=== PATIENT | female | born 1950 | race Caucasian/White ===

== ENCOUNTER 2018-10-21 09:27 | Emergency (ER) | payer MEDICARE, OTHER ==
[~2018-10-21] VITALS: Ht 154.9 cm; Wt 62.7 kg
[2018-10-21] MEDS ORDERED: SODIUM CHLORIDE 0.9% 1000ML 1,000 ML ONE (11:53)
[2018-10-21] MEDS ORDERED: SODIUM CHLORIDE 0.9% 1000 ML BAG IV ONE (12:00)
--- NOTE | 2018-10-21 12:46 | Diagnostic Imaging Report ---
EXAM: CT Abdomen and Pelvis WITH contrast INDICATION: Abdominal Pain COMPARISON: None. TECHNIQUE: Abdomen and pelvis were scanned utilizing a multidetector helical scanner from the lung base to the pubic symphysis after administration of IV contrast. Coronal and sagittal reformations were obtained. Routine protocol was performed. Scan was performed when during portal venous phase. IV CONTRAST: 100 cc of Isovue 370 ORAL CONTRAST: Water COMPLICATIONS: None RADIATION DOSE: Total DLP: 595.2 mGy*cm Dose modulation, iterative reconstruction, and/or weight based adjustment of the mA/kV was utilized to reduce the radiation dose to as low as reasonably achievable. FINDINGS: LINES and TUBES: None. LOWER THORAX: Unremarkable HEPATOBILIARY: No evidence of focal lesion. No biliary ductal dilation. GALLBLADDER: No radio-opaque stones or sludge. No wall thickening. SPLEEN: No splenomegaly. PANCREAS: No focal masses or ductal dilatation. ADRENALS: No adrenal nodules KIDNEYS/URETERS: There is mild right hydronephrosis and hydroureter with distal ureteral extrinsic compression from the pelvic mass. Kidneys enhance symmetrically. No evidence of solid mass or stone. Subcentimeter left lower pole renal hypodensity, likely representing a cyst. GI TRACT: There is dilatation of small bowel loops, measuring up to 3.5 cm. There is extrinsic compression of the ileal loops in the pelvis. There is stool and air within the colon which is nondistended. The sigmoid colon is decompressed and extrinsically narrowed by the pelvic mass. PELVIC ORGANS/BLADDER: There is a large heterogeneous pelvic mass, which is ill-defined, but measuring up to approximately 15.7 x 12.7 x 8.9 cm. The mass is indistinguishable from the uterus or adnexa. The mass is centered within the midline and left pelvis. Along the left aspect of the mass, there is a large fluid component with multiple foci of punctate air. The fluid component measures up to 11.3 x 6.5 cm. There is small volume surrounding free fluid. Extrinsic compression of the bladder which is displaced anteriorly and partially decompressed. LYMPH NODES: Retroperitoneal lymphadenopathy, for example a left periaortic lymph node, measuring up to 1.9 x 1.7 cm (series 2, image 40) and an aortocaval lymph node, measuring up to 1.3 x 0.9 cm (image 36). Left common iliac artery lymph node, measuring up to 0.8 cm short axis on image 46. Right pericardiac lymph nodes are prominent, measuring up to 0.8 cm. Prominent mesenteric lymph nodes, measuring up to 0.8 cm on image 35. VESSELS: There are scattered atherosclerotic calcifications in the aorta and branch vessels. PERITONEUM / RETROPERITONEUM: No free air or fluid. BONES AND SOFT TISSUES: No acute osseous abnormality. No suspicious lytic or blastic lesions. Grade 1 anterolisthesis of L5 on S1. CONCLUSION: Large heterogeneous pelvic mass, consistent with malignancy with retroperitoneal and mesenteric lymphadenopathy, suspicious for metastasis. Small volume ascites. Differential includes endometrial and ovarian malignancies. Large fluid component within the mass suspicious for necrosis. The foci of air within the mass could represent fistula to the adjacent sigmoid colon. Prominent right pericardial lymph nodes, which may be metastatic or reactive. Recommend gynecologic/oncologic consultation. Dedicated PET/CT for staging is suggested. Partial small bowel obstruction and mild right hydronephrosis secondary to extrinsic mass effect from the pelvic mass. Signed by: Dr. Nellie Javier MD on 10/21/2018 12:43 PM
--- NOTE | 2018-10-21 12:55 | NUR ---
PT UPDATED OF CT RESULTS BY
[2018-10-21] MEDS ORDERED: METRONIDAZOLE 500MG/NS 100ML 100 ML IV STA (12:56)
[2018-10-21] MEDS ORDERED: LEVOFLOXACIN 750MG/D5W 150ML 150 ML IV STA (12:56)
--- NOTE | 2018-10-21 13:08 | NUR ---
PT/MD REQUESTING TRANSFER [facility]. [facility] CALLED [phone]
[2018-10-21] MEDS ORDERED: METRONIDAZOLE 500MG/NS 100ML 100 ML IV ONE (13:54)
[2018-10-21] MEDS ORDERED: LEVOFLOXACIN 750MG/D5W 150ML 150 ML IV ONE (13:54)
--- NOTE | 2018-10-21 15:07 | NUR ---
CALLED [facility] FOR TRANSPORT
--- NOTE | 2018-10-21 16:30 | NUR ---
REPORT TO EMS CORRESPONDENCE REVIEW CLERK, NOTIFIED TITLE I COORDINATOR OF TRANSFER, PAPERWORK DONE.
--- NOTE | 2018-10-21 16:40 | NUR ---
REPORT ATTEMPTED THRU TRANSFER [place] [phone]
--- NOTE | 2018-10-21 17:01 | NUR ---
REPORT TO OREN CANDELARIO AT [facility]
[2018-10-21] MEDS ORDERED: SODIUM CHLORIDE 0.9% 50ML 50 ML ONE (18:57)
[2018-10-21] MEDS ORDERED: IOPAMIDOL 370 MG/ML 200 ML INFUS..BTL INJ ONE (18:57)
== END 2018-10-21 16:36 | disposition short-term general hospital (02) ==
LOC: FSED 09:27
DX: R19.00 Intra-abdominal and pelvic swelling, mass and lump, unspecified site (principal); C56.9 Malignant neoplasm of unspecified ovary; K56.600 Partial intestinal obstruction, unspecified as to cause
CPT/HCPCS: 74177; 80048; 80076; 81003; 82553; 84484; 99284; J7030; Q9967

== ENCOUNTER 2019-08-01 00:23 | Emergency (ER) | payer MEDICARE, OTHER ==
[~2019-08-01] VITALS: Ht 154.9 cm; Wt 62.6 kg
--- OUTSIDE RECORDS SUMMARY | 2019-08-01 00:27 | XMS REPORT ---
Author Author [facility] Address Unknown Phone Unavailable Care Team Providers Care Drum Cleaner Name Role Phone LEEANNE VICTORIA Unavailable Unavailable JONO ASTORGA Unavailable Unavailable Arline GEORGE Unavailable Unavailable JOSTINMARY JOESTINE Unavailable Unavailable ARRON MILLER Unavailable Unavailable MELA LLAMAS Unavailable Unavailable Problems This patient has no known problems. Allergies, Adverse Reactions, Alerts This patient has no known allergies or adverse reactions. Medications This patient has no known medications. Results Test Description Test Time Test Comments Text Results Atomic Results Result Comments MAGNESIUM 2019-07-30 07:06:00 MAGNESIUM (BEAKER) (test oceo=007) 1.8 mg/dL 1.6-2.6 Tree Tapping Laborer ID - ISAIAS MBASIC METABOLIC [id number] 07:06:00* Test Item Value Reference Range Comments SODIUM (BEAKER) (test vftl=529) 132 meq/L 136-145 POTASSIUM (BEAKER) (test cebc=354) 4.5 meq/L 3.5-5.1 CHLORIDE (BEAKER) (test uzmc=781) 100 meq/L 98-107 CO2 (BEAKER) (test uuxf=211) 25 meq/L 22-29 BLOOD UREA NITROGEN (BEAKER) (test effi=870) 11 mg/dL 7-21 CREATININE (BEAKER) (test xnfh=027) 0.66 mg/dL 0.57-1.25 GLUCOSE RANDOM (BEAKER) (test bfxd=990) 137 mg/dL 70-105 CALCIUM (BEAKER) (test nkub=770) 8.4 mg/dL 8.4-10.2 EGFR (BEAKER) (test tbfz=7974) 89 mL/min/1.73 sq m ESTIMATED GFR IS NOT ACCURATE CREATININE CLEARANCE IN PREDICTING GLOMERULAR FILTRATION RATE. ESTIMATED GFR IS NOT APPLICABLE FOR DIALYSIS PATIENTS. Tree Tapping Laborer ID - ISAIAS [facility] W/PLT COUNT & AUTO [id number] 07:01:00* Test Item Value Reference Range Comments WHITE BLOOD CELL COUNT (BEAKER) (test biah=285) 7.4 K/ L 3.5-10.5 RED BLOOD CELL COUNT (BEAKER) (test klsl=591) 2.77 M/ L 3.93-5.22 HEMOGLOBIN (BEAKER) (test uzuo=604) 7.9 GM/DL 11.2-15.7 HEMATOCRIT (BEAKER) (test pvse=519) 25.8 % 34.1-44.9 MEAN CORPUSCULAR VOLUME (BEAKER) (test yjnn=186) 93.1 fL 79.4-94.8 MEAN CORPUSCULAR HEMOGLOBIN (BEAKER) (test jzel=370) 28.5 pg 25.6-32.2 MEAN CORPUSCULAR HEMOGLOBIN CONC (BEAKER) (test dxor=014) 30.6 GM/DL 32.2-35.5 RED CELL DISTRIBUTION WIDTH (BEAKER) (test vubc=791) 16.9 % 11.7-14.4 PLATELET COUNT (BEAKER) (test gvkw=654) 237 K/CU MM 150-450 MEAN PLATELET VOLUME (BEAKER) (test wbzg=603) 8.9 fL 9.4-12.3 NUCLEATED RED BLOOD CELLS (BEAKER) (test pmke=252) 0 /100 WBC 0-0 NEUTROPHILS RELATIVE PERCENT (BEAKER) (test sigm=152) 93 % LYMPHOCYTES RELATIVE PERCENT (BEAKER) (test xwsh=251) 3 % MONOCYTES RELATIVE PERCENT (BEAKER) (test erxb=469) 4 % EOSINOPHILS RELATIVE PERCENT (BEAKER) (test pcbo=904) 0 % BASOPHILS RELATIVE PERCENT (BEAKER) (test deoa=680) 0 % NEUTROPHILS ABSOLUTE COUNT (BEAKER) (test kgge=664) 6.91 K/ L 1.56-6.13 LYMPHOCYTES ABSOLUTE COUNT (BEAKER) (test nccg=172) 0.19 K/ L 1.18-3.74 MONOCYTES ABSOLUTE COUNT (BEAKER) (test lpmt=687) 0.29 K/ L 0.24-0.36 EOSINOPHILS ABSOLUTE COUNT (BEAKER) (test xosi=440) 0.00 K/ L 0.04-0.36 BASOPHILS ABSOLUTE COUNT (BEAKER) (test fcnv=332) 0.01 K/ L 0.01-0.08 IMMATURE GRANULOCYTES-RELATIVE PERCENT (BEAKER) (test fxco=3387) 0 % 0-1 CBC W/PLT COUNT & AUTO [id number] 06:53:00* Test Item Value Reference Range Comments WHITE BLOOD CELL COUNT (BEAKER) (test fxwj=164) 9.5 K/ L 3.5-10.5 RED BLOOD CELL COUNT (BEAKER) (test viwd=737) 2.85 M/ L 3.93-5.22 HEMOGLOBIN (BEAKER) (test hfgg=608) 8.3 GM/DL 11.2-15.7 HEMATOCRIT (BEAKER) (test sqgw=333) 26.2 % 34.1-44.9 MEAN CORPUSCULAR VOLUME (BEAKER) (test qjis=178) 91.9 fL 79.4-94.8 MEAN CORPUSCULAR HEMOGLOBIN (BEAKER) (test ores=576) 29.1 pg 25.6-32.2 MEAN CORPUSCULAR HEMOGLOBIN CONC (BEAKER) (test ljaz=069) 31.7 GM/DL 32.2-35.5 RED CELL DISTRIBUTION WIDTH (BEAKER) (test kpwv=464) 17.3 % 11.7-14.4 PLATELET COUNT (BEAKER) (test iedt=893) 258 K/CU MM 150-450 MEAN PLATELET VOLUME (BEAKER) (test aigo=182) 8.9 fL 9.4-12.3 NUCLEATED RED BLOOD CELLS (BEAKER) (test afdo=914) 0 /100 WBC 0-0 NEUTROPHILS RELATIVE PERCENT (BEAKER) (test hvgg=850) 88 % LYMPHOCYTES RELATIVE PERCENT (BEAKER) (test ewdb=343) 3 % MONOCYTES RELATIVE PERCENT (BEAKER) (test enzv=860) 9 % EOSINOPHILS RELATIVE PERCENT (BEAKER) (test cwiz=744) 0 % BASOPHILS RELATIVE PERCENT (BEAKER) (test ehtg=782) 0 % NEUTROPHILS ABSOLUTE COUNT (BEAKER) (test pdpi=676) 8.31 K/ L 1.56-6.13 LYMPHOCYTES ABSOLUTE COUNT (BEAKER) (test wyzt=153) 0.29 K/ L 1.18-3.74 MONOCYTES ABSOLUTE COUNT (BEAKER) (test zdud=734) 0.81 K/ L 0.24-0.36 EOSINOPHILS ABSOLUTE COUNT (BEAKER) (test vkya=833) 0.03 K/ L 0.04-0.36 BASOPHILS ABSOLUTE COUNT (BEAKER) (test tsfu=584) 0.01 K/ L 0.01-0.08 IMMATURE GRANULOCYTES-RELATIVE PERCENT (BEAKER) (test ywyo=0110) 0 % 0-1 [id number] 06:46:00* Test Item Value Reference Range Comments MAGNESIUM (BEAKER) (test ipuj=645) 1.7 mg/dL 1.6-2.6 Tree Tapping Laborer ID - ISAIAS MBASIC METABOLIC [id number] 06:46:00* Test Item Value Reference Range Comments SODIUM (BEAKER) (test zwep=000) 131 meq/L 136-145 POTASSIUM (BEAKER) (test gkoz=898) 4.2 meq/L 3.5-5.1 CHLORIDE (BEAKER) (test gflc=454) 101 meq/L 98-107 CO2 (BEAKER) (test qkhr=478) 24 meq/L 22-29 BLOOD UREA NITROGEN (BEAKER) (test mhvx=012) 12 mg/dL 7-21 CREATININE (BEAKER) (test hqmz=888) 0.66 mg/dL 0.57-1.25 GLUCOSE RANDOM (BEAKER) (test ytmz=824) 97 mg/dL 70-105 CALCIUM (BEAKER) (test ysrf=061) 8.2 mg/dL 8.4-10.2 EGFR (BEAKER) (test pgmx=0371) 89 mL/min/1.73 sq m ESTIMATED GFR IS NOT ACCURATE CREATININE CLEARANCE IN PREDICTING GLOMERULAR FILTRATION RATE. ESTIMATED GFR IS NOT APPLICABLE FOR DIALYSIS PATIENTS. Tree Tapping Laborer ID - ISAIAS MOCCULT BLOOD, [id number] 22:01:00* Test Item Value Reference Range Comments FECAL OCCULT BLOOD (BEAKER) (test ppwi=130) Positive Negative HEMOGLOBIN AND [id number] 15:48:00* Test Item Value Reference Range Comments HEMOGLOBIN (BEAKER) (test gzmt=623) 8.2 GM/DL 11.2-15.7 HEMATOCRIT (BEAKER) (test reuy=631) 25.6 % 34.1-44.9 Tree Tapping Laborer ID - [id number] W/PLT COUNT & AUTO [id number] 06:48:00* Test Item Value Reference Range Comments WHITE BLOOD CELL COUNT (BEAKER) (test auym=441) 8.1 K/ L 3.5-10.5 RED BLOOD CELL COUNT (BEAKER) (test vofz=047) 2.39 M/ L 3.93-5.22 HEMOGLOBIN (BEAKER) (test riwf=682) 6.9 GM/DL 11.2-15.7 HEMATOCRIT (BEAKER) (test udyq=375) 22.6 % 34.1-44.9 MEAN CORPUSCULAR VOLUME (BEAKER) (test gcpu=815) 94.6 fL 79.4-94.8 MEAN CORPUSCULAR HEMOGLOBIN (BEAKER) (test lqvl=179) 28.9 pg 25.6-32.2 MEAN CORPUSCULAR HEMOGLOBIN CONC (BEAKER) (test itrh=401) 30.5 GM/DL 32.2-35.5 RED CELL DISTRIBUTION WIDTH (BEAKER) (test jnue=819) 16.7 % 11.7-14.4 PLATELET COUNT (BEAKER) (test amyw=303) 278 K/CU MM 150-450 MEAN PLATELET VOLUME (BEAKER) (test ocxy=900) 9.0 fL 9.4-12.3 NUCLEATED RED BLOOD CELLS (BEAKER) (test xrpl=141) 0 /100 WBC 0-0 NEUTROPHILS RELATIVE PERCENT (BEAKER) (test vigg=115) 87 % LYMPHOCYTES RELATIVE PERCENT (BEAKER) (test wbcy=974) 4 % MONOCYTES RELATIVE PERCENT (BEAKER) (test mkyv=288) 8 % EOSINOPHILS RELATIVE PERCENT (BEAKER) (test nnza=500) 0 % BASOPHILS RELATIVE PERCENT (BEAKER) (test rjad=541) 0 % NEUTROPHILS ABSOLUTE COUNT (BEAKER) (test kjqx=643) 7.02 K/ L 1.56-6.13 LYMPHOCYTES ABSOLUTE COUNT (BEAKER) (test pdid=181) 0.36 K/ L 1.18-3.74 MONOCYTES ABSOLUTE COUNT (BEAKER) (test dczm=261) 0.68 K/ L 0.24-0.36 EOSINOPHILS ABSOLUTE COUNT (BEAKER) (test oowh=073) 0.00 K/ L 0.04-0.36 BASOPHILS ABSOLUTE COUNT (BEAKER) (test qaro=039) 0.02 K/ L 0.01-0.08 IMMATURE GRANULOCYTES-RELATIVE PERCENT (BEAKER) (test nidy=1973) 0 % 0-1 [id number] 06:32:00* Test Item Value Reference Range Comments MAGNESIUM (BEAKER) (test csqw=789) 1.8 mg/dL 1.6-2.6 Tree Tapping Laborer ID - DIPIKA WBASIC METABOLIC [id number] 06:32:00* Test Item Value Reference Range Comments SODIUM (BEAKER) (test jphh=720) 132 meq/L 136-145 POTASSIUM (BEAKER) (test nwex=854) 4.2 meq/L 3.5-5.1 CHLORIDE (BEAKER) (test jzbo=677) 101 meq/L 98-107 CO2 (BEAKER) (test mikq=771) 24 meq/L 22-29 BLOOD UREA NITROGEN (BEAKER) (test cvbe=061) 15 mg/dL 7-21 CREATININE (BEAKER) (test pphy=103) 0.71 mg/dL 0.57-1.25 GLUCOSE RANDOM (BEAKER) (test uhpk=090) 107 mg/dL 70-105 CALCIUM (BEAKER) (test zwdx=222) 8.3 mg/dL 8.4-10.2 EGFR (BEAKER) (test ninl=3345) 82 mL/min/1.73 sq m ESTIMATED GFR IS NOT ACCURATE CREATININE CLEARANCE IN PREDICTING GLOMERULAR FILTRATION RATE. ESTIMATED GFR IS NOT APPLICABLE FOR DIALYSIS PATIENTS. Tree Tapping Laborer ID - DIPIKA WVITAMIN B12 AND [id number] 18:59:00* Test Item Value Reference Range Comments VITAMIN B12 (BEAKER) (test hrai=407) > pg/mL 213-816 FOLATE (BEAKER) (test asrt=209) 12.5 ng/mL >=7.0 Tree Tapping Laborer ID - [id number] 18:58:00* Test Item Value Reference Range Comments FERRITIN (BEAKER) (test hmsk=211) 304 ng/mL 5-275 Tree Tapping Laborer ID - ROSIANGTSH/FREE T4 IF [id number] 18:58:00* Test Item Value Reference Range Comments THYROID STIMULATING HORMONE (BEAKER) (test wnre=827) 1.26 uIU/mL 0.35-4.94 Tree Tapping Laborer ID - [id number] 18:24:00* Test Item Value Reference Range Comments PHOSPHORUS (BEAKER) (test kgul=497) 4.2 mg/dL 2.3-4.7 Tree Tapping Laborer ID - [id number] 18:24:00* Test Item Value Reference Range Comments MAGNESIUM (BEAKER) (test uoja=995) 1.8 mg/dL 1.6-2.6 Tree Tapping Laborer ID - WAQASGBASIC METABOLIC [id number] 18:24:00* Test Item Value Reference Range Comments SODIUM (BEAKER) (test qzyw=570) 130 meq/L 136-145 POTASSIUM (BEAKER) (test pmeo=613) 4.6 meq/L 3.5-5.1 CHLORIDE (BEAKER) (test thsr=563) 98 meq/L 98-107 CO2 (BEAKER) (test zykn=721) 23 meq/L 22-29 BLOOD UREA NITROGEN (BEAKER) (test jcsg=599) 20 mg/dL 7-21 CREATININE (BEAKER) (test odwu=695) 0.83 mg/dL 0.57-1.25 GLUCOSE RANDOM (BEAKER) (test pltk=025) 103 mg/dL 70-105 CALCIUM (BEAKER) (test drip=747) 9.0 mg/dL 8.4-10.2 EGFR (BEAKER) (test xqeu=9700) 68 mL/min/1.73 sq m ESTIMATED GFR IS NOT ACCURATE CREATININE CLEARANCE IN PREDICTING GLOMERULAR FILTRATION RATE. ESTIMATED GFR IS NOT APPLICABLE FOR DIALYSIS PATIENTS. Tree Tapping Laborer ID - YVONEPATIC FUNCTION [id number] 18:24:00* Test Item Value Reference Range Comments TOTAL PROTEIN (BEAKER) (test wmaq=339) 6.6 gm/dL 6.0-8.3 ALBUMIN (BEAKER) (test hkjz=2520) 3.1 g/dL 3.5-5.0 BILIRUBIN TOTAL (BEAKER) (test izgs=916) 0.2 mg/dL 0.2-1.2 BILIRUBIN DIRECT (BEAKER) (test zvub=535) 0.2 mg/dL 0.1-0.5 ALKALINE PHOSPHATASE (BEAKER) (test vjul=046) 89 U/L 40-150 AST (SGOT) (BEAKER) (test zzho=596) 11 U/L 5-34 ALT (SGPT) (BEAKER) (test yjmu=339) 9 U/L 6-55 Tree Tapping Laborer ID - OUSMANE, TIBC, % SAT. (WITHOUT FERRITIN)2019-07-27 18:22:00* Test Item Value Reference Range Comments IRON (BEAKER) (test eafg=822) 15.0 ug/dL 40.0-160.0 TOTAL IRON BINDING CAPACITY (BEAKER) (test vugj=947) 194 ug/dL 250-450 IRON % SATURATION (2) (BEAKER) (test ytsa=3739) 8 % 20-55 Tree Tapping Laborer ID - ROSIANGPT/[id number] 18:20:00* Test Item Value Reference Range Comments PROTIME (BEAKER) (test ojkd=315) 13.8 seconds 11.9-14.2 INR (BEAKER) (test byfr=770) 1.1 <=5.9 PARTIAL THROMBOPLASTIN TIME (BEAKER) (test jiig=839) 45.5 seconds 22.5-36.0 Effective 10/20/2018: PT Reference Range ChangeNew: 11.9-14.2 Previous: 11.7-14. 7RECOMMENDED COUMADIN/WARFARIN INR THERAPY RANGESSTANDARD DOSE: 2.0-3.0 Include s: PROPHYLAXIS for venous thrombosis, systemic embolization; TREATMENT for venou s thrombosis and/or pulmonary embolus.HIGH RISK: Target INR is 2.5-3.5 for patie nts wiht mechanical heart valves.CBC W/PLT COUNT & AUTO [id number] 18:09:00* Test Item Value Reference Range Comments WHITE BLOOD CELL COUNT (BEAKER) (test ruxe=896) 9.6 K/ L 3.5-10.5 RED BLOOD CELL COUNT (BEAKER) (test yzdk=132) 2.64 M/ L 3.93-5.22 HEMOGLOBIN (BEAKER) (test bgrb=839) 7.8 GM/DL 11.2-15.7 HEMATOCRIT (BEAKER) (test inpu=056) 24.8 % 34.1-44.9 MEAN CORPUSCULAR VOLUME (BEAKER) (test ofwa=314) 93.9 fL 79.4-94.8 MEAN CORPUSCULAR HEMOGLOBIN (BEAKER) (test qevp=666) 29.5 pg 25.6-32.2 MEAN CORPUSCULAR HEMOGLOBIN CONC (BEAKER) (test mabt=007) 31.5 GM/DL 32.2-35.5 RED CELL DISTRIBUTION WIDTH (BEAKER) (test yefb=672) 16.5 % 11.7-14.4 PLATELET COUNT (BEAKER) (test oafg=932) 328 K/CU MM 150-450 MEAN PLATELET VOLUME (BEAKER) (test hudq=091) 9.1 fL 9.4-12.3 NUCLEATED RED BLOOD CELLS (BEAKER) (test bqkl=873) 0 /100 WBC 0-0 NEUTROPHILS RELATIVE PERCENT (BEAKER) (test mydj=065) 89 % LYMPHOCYTES RELATIVE PERCENT (BEAKER) (test kzlx=371) 3 % MONOCYTES RELATIVE PERCENT (BEAKER) (test stzf=935) 7 % EOSINOPHILS RELATIVE PERCENT (BEAKER) (test enhf=291) 0 % BASOPHILS RELATIVE PERCENT (BEAKER) (test uaxt=019) 0 % NEUTROPHILS ABSOLUTE COUNT (BEAKER) (test ksjm=750) 8.50 K/ L 1.56-6.13 LYMPHOCYTES ABSOLUTE COUNT (BEAKER) (test qpfh=092) 0.32 K/ L 1.18-3.74 MONOCYTES ABSOLUTE COUNT (BEAKER) (test nksk=116) 0.71 K/ L 0.24-0.36 EOSINOPHILS ABSOLUTE COUNT (BEAKER) (test ysfq=753) 0.00 K/ L 0.04-0.36 BASOPHILS ABSOLUTE COUNT (BEAKER) (test xppm=570) 0.01 K/ L 0.01-0.08 IMMATURE GRANULOCYTES-RELATIVE PERCENT (BEAKER) (test xhkt=5586) 0 % 0-1 RETICULOCYTE [id number] 18:08:00* Test Item Value Reference Range Comments RETICULOCYTE COUNT PCT (BEAKER) (test qiiu=995) 1.5 % 0.5-1.7 Tree Tapping Laborer ID - [id number], [id number] 17:04:00FINAL REPORT CT of the Chest, abdomen and pelvis dated 07/17/2019 Clinical information: uterine cancer restaging Comment: Axial images of the chest, abdomen, and pelvis were obtained from thoracic inlet to the pubic symphysis with GI and intravenous contrast. This exam was performed according to our departmental dose-optimization program, which includes automated exposure control, adjustment of the mA and/or kV according to patient size and/or use of interactive reconstruction technique. Heart is normal in size. Small amount of fluid is seen in the superior cardiac recess. Great vessels are unremarkable. No adenopathy in the mediastinum or perihilar region. Trachea and mainstem bronchi are patent. Subsegmental atelectasis is seen in the lingula and right lung b ase. The rest of the lungs are clear. No nodular, mass lesion or airspace disea se is noted. No interstitial disease or bronchiectasis is present. No pleural e ffusion or pleural based mass is seen. Several mass lesions are seen under the a nterior left hemidiaphragm measuring up to 4.3 x 4.8 cm. A 3.7 x 3.7 cm mass is seen in the left lateroconal fascia. A 1.8 x 1.9 cm mass/adenopathy is seen in t he root of the mesentery. Liver and spleen are normal in size. No focal lesion i s seen in the liver or the spleen. Gallbladder is distended. No gallstone or kim iary dilatation is noted. Pancreas and adrenals are unremarkable. Both kidneys a re normal in size and functioning with bilateral excretion. Bilateral ureter st ents are seen. No hydronephrosis, hydroureter, or urolithiasis is noted. No opac ified small bowel is normal in caliber. There is nonspecific wall thickening in the proximal and distal sigmoid colon. A large complex mass is seen in the mid p nuha measuring at least 7.5 x 8.4 x 9.8 cm. The pelvic mass is seen extended to the right pelvic sidewall. Adenopathy is seen in the left common, external and internal lymphatic chain measuring up to 2.4 x 3 cm in size. A 3.5 x 4.2 cm carola opathy is seen in the right common iliac lymphatic chain. Impression: 1. Large m ass in the mid pelvis and adenopathy in the bilateral iliac lymphatic chain as d escribed as above.2. 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 Wall thickening involving the proximal and distal sigmoid colon may be se condary to extrinsic mass/adenopathy.4. No metastatic disease in the chest. Sign ed: Joshua Mena MDReport Verified Date/Time: 07/17/2019 17:04:24 Reading Locati on: [facility] B1 C013X Ortho Consult Reading Room , CHEST, WITH [id number] 17:04:[address] of the Chest, abdomen and pelvis dated Clinical information: uterine cancer restaging Comment: Axial images o f the chest, abdomen, and pelvis were obtained from thoracic inlet to the pubic symphysis with GI and intravenous contrast. This exam was performed accordin g to our departmental dose-optimization program, which includes automated exposu re control, adjustment of the mA and/or kV according to patient size and/or use of interactive reconstruction technique. Heart is normal in size. Small amount o f fluid is seen in the superior cardiac recess. Great vessels are unremarkable. No adenopathy in the mediastinum or perihilar region. Trachea and mainstem bronc hi are patent. Subsegmental atelectasis is seen in the lingula and right lung b ase. The rest of the lungs are clear. No nodular, mass lesion or airspace disea se is noted. No interstitial disease or bronchiectasis is present. No pleural e ffusion or pleural based mass is seen. Several mass lesions are seen under the a nterior left hemidiaphragm measuring up to 4.3 x 4.8 cm. A 3.7 x 3.7 cm mass is seen in the left lateroconal fascia. A 1.8 x 1.9 cm mass/adenopathy is seen in t he root of the mesentery. Liver and spleen are normal in size. No focal lesion i s seen in the liver or the spleen. Gallbladder is distended. No gallstone or kim iary dilatation is noted. Pancreas and adrenals are unremarkable. Both kidneys a re normal in size and functioning with bilateral excretion. Bilateral ureter st ents are seen. No hydronephrosis, hydroureter, or urolithiasis is noted. No opac ified small bowel is normal in caliber. There is nonspecific wall thickening in the proximal and distal sigmoid colon. A large complex mass is seen in the mid p nuha measuring at least 7.5 x 8.4 x 9.8 cm. The pelvic mass is seen extended to the right pelvic sidewall. Adenopathy is seen in the left common, external and internal lymphatic chain measuring up to 2.4 x 3 cm in size. A 3.5 x 4.2 cm carola opathy is seen in the right common iliac lymphatic chain. Impression: 1. Large m ass in the mid pelvis and adenopathy in the bilateral iliac lymphatic chain as d escribed as above.2. 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 Wall thickening involving the proximal and distal sigmoid colon may be se condary to extrinsic mass/adenopathy.4. No metastatic disease in the chest. Sign ed: Joshua Mena MDReport Verified Date/Time: 07/17/2019 17:04:24 Reading Locati on: [facility] B1 C013X Ortho Consult Reading Room C METABOLIC [id number] 06:55:00* Test Item Value Reference Range Comments SODIUM (BEAKER) (test cphn=472) 133 meq/L 136-145 POTASSIUM (BEAKER) (test fjww=478) 5.1 meq/L 3.5-5.1 CHLORIDE (BEAKER) (test hssr=136) 101 meq/L 98-107 CO2 (BEAKER) (test mrzc=007) 26 meq/L 22-29 BLOOD UREA NITROGEN (BEAKER) (test nrvx=166) 11 mg/dL 7-21 CREATININE (BEAKER) (test ugxc=987) 0.78 mg/dL 0.57-1.25 GLUCOSE RANDOM (BEAKER) (test xcas=324) 100 mg/dL 70-105 CALCIUM (BEAKER) (test dxmn=165) 8.7 mg/dL 8.4-10.2 EGFR (BEAKER) (test lnec=5781) 73 mL/min/1.73 sq m ESTIMATED GFR IS NOT ACCURATE CREATININE CLEARANCE IN PREDICTING GLOMERULAR FILTRATION RATE. ESTIMATED GFR IS NOT APPLICABLE FOR DIALYSIS PATIENTS. Tree Tapping Laborer ID - DBCBC (HEMOGRAM ONLY)2019-07-17 06:07:00* Test Item Value Reference Range Comments WHITE BLOOD CELL COUNT (BEAKER) (test khqw=664) 12.0 K/ L 3.5-10.5 RED BLOOD CELL COUNT (BEAKER) (test pejq=078) 2.53 M/ L 3.93-5.22 HEMOGLOBIN (BEAKER) (test wkiu=765) 7.6 GM/DL 11.2-15.7 HEMATOCRIT (BEAKER) (test woab=643) 24.1 % 34.1-44.9 MEAN CORPUSCULAR VOLUME (BEAKER) (test icbx=429) 95.3 fL 79.4-94.8 MEAN CORPUSCULAR HEMOGLOBIN (BEAKER) (test kytu=371) 30.0 pg 25.6-32.2 MEAN CORPUSCULAR HEMOGLOBIN CONC (BEAKER) (test wnxq=883) 31.5 GM/DL 32.2-35.5 RED CELL DISTRIBUTION WIDTH (BEAKER) (test hipe=174) 18.6 % 11.7-14.4 PLATELET COUNT (BEAKER) (test oyzd=129) 263 K/CU MM 150-450 MEAN PLATELET VOLUME (BEAKER) (test kbav=769) 8.8 fL 9.4-12.3 NUCLEATED RED BLOOD CELLS (BEAKER) (test wxnh=378) 0 /100 WBC 0-0 HEMOGLOBIN AND [id number] 18:07:00* Test Item Value Reference Range Comments HEMOGLOBIN (BEAKER) (test lyab=804) 7.8 GM/DL 11.2-15.7 HEMATOCRIT (BEAKER) (test zgpo=302) 25.8 % 34.1-44.9 Tree Tapping Laborer ID - [id number] (HEMOGRAM ONLY)2019-07-16 07:15:00* Test Item Value Reference Range Comments WHITE BLOOD CELL COUNT (BEAKER) (test wwyr=317) 10.6 K/ L 3.5-10.5 RED BLOOD CELL COUNT (BEAKER) (test ubjt=089) 2.55 M/ L 3.93-5.22 HEMOGLOBIN (BEAKER) (test zlnc=009) 7.5 GM/DL 11.2-15.7 HEMATOCRIT (BEAKER) (test ztjn=936) 24.7 % 34.1-44.9 MEAN CORPUSCULAR VOLUME (BEAKER) (test pvej=948) 96.9 fL 79.4-94.8 Discordant result compared to previous result; clinical correlation required. MEAN CORPUSCULAR HEMOGLOBIN (BEAKER) (test slxn=307) 29.4 pg 25.6-32.2 MEAN CORPUSCULAR HEMOGLOBIN CONC (BEAKER) (test wxzs=818) 30.4 GM/DL 32.2-35.5 RED CELL DISTRIBUTION WIDTH (BEAKER) (test mqun=722) 19.3 % 11.7-14.4 PLATELET COUNT (BEAKER) (test oaih=862) 298 K/CU MM 150-450 MEAN PLATELET VOLUME (BEAKER) (test zvdx=966) 8.9 fL 9.4-12.3 NUCLEATED RED BLOOD CELLS (BEAKER) (test dqin=810) 0 /100 WBC 0-0 BASIC METABOLIC [id number] 06:35:00* Test Item Value Reference Range Comments SODIUM (BEAKER) (test quie=274) 136 meq/L 136-145 POTASSIUM (BEAKER) (test fdvc=187) 4.2 meq/L 3.5-5.1 Specimen slightly hemolyzed CHLORIDE (BEAKER) (test vwff=651) 108 meq/L 98-107 CO2 (BEAKER) (test qklb=537) 21 meq/L 22-29 BLOOD UREA NITROGEN (BEAKER) (test ugmq=492) 16 mg/dL 7-21 CREATININE (BEAKER) (test kyay=748) 0.79 mg/dL 0.57-1.25 Specimen slightly hemolyzed GLUCOSE RANDOM (BEAKER) (test zxsu=763) 92 mg/dL 70-105 CALCIUM (BEAKER) (test llws=320) 8.5 mg/dL 8.4-10.2 EGFR (BEAKER) (test rrkr=2583) 72 mL/min/1.73 sq m ESTIMATED GFR IS NOT ACCURATE CREATININE CLEARANCE IN PREDICTING GLOMERULAR FILTRATION RATE. ESTIMATED GFR IS NOT APPLICABLE FOR DIALYSIS PATIENTS. [employer] ID - ISAIAS MPERIPHERAL BLOOD SMEAR - HOLD [id number] 21:42:00* Test Item Value Reference Range Comments PERIPHERAL SMEAR SAVE (BEAKER) (test yiyd=0527) saved RETICULOCYTE [id number] 21:36:00* Test Item Value Reference Range Comments RETICULOCYTE COUNT PCT (BEAKER) (test kkgl=573) 6.1 % 0.5-1.7 [employer] ID - [id number] METABOLIC [id number] 18:41:00* Test Item Value Reference Range Comments SODIUM (BEAKER) (test nxjf=754) 138 meq/L 136-145 POTASSIUM (BEAKER) (test nnmf=096) 4.7 meq/L 3.5-5.1 CHLORIDE (BEAKER) (test qebc=387) 105 meq/L 98-107 CO2 (BEAKER) (test beoa=906) 22 meq/L 22-29 BLOOD UREA NITROGEN (BEAKER) (test tkjf=100) 19 mg/dL 7-21 CREATININE (BEAKER) (test sdua=981) 0.97 mg/dL 0.57-1.25 GLUCOSE RANDOM (BEAKER) (test wqhf=526) 106 mg/dL 70-105 CALCIUM (BEAKER) (test haww=614) 8.7 mg/dL 8.4-10.2 EGFR (BEAKER) (test pjwg=7074) INSUFFICIENT CLINICAL DATA TO CALCULATE ESTIMATED GFR. [employer] ID - BSHEPATIC FUNCTION [id number] 18:36:00* Test Item Value Reference Range Comments TOTAL PROTEIN (BEAKER) (test rzar=300) 6.3 gm/dL 6.0-8.3 ALBUMIN (BEAKER) (test bdow=3767) 3.1 g/dL 3.5-5.0 BILIRUBIN TOTAL (BEAKER) (test mllq=476) 0.1 mg/dL 0.2-1.2 BILIRUBIN DIRECT (BEAKER) (test firi=516) 0.1 mg/dL 0.1-0.5 ALKALINE PHOSPHATASE (BEAKER) (test aueb=865) 60 U/L 40-150 AST (SGOT) (BEAKER) (test qqdk=887) 13 U/L 5-34 ALT (SGPT) (BEAKER) (test yfla=119) 8 U/L 6-55 [employer] ID - BSCBC W/PLT COUNT & AUTO [id number] 17:40:00* Test Item Value Reference Range Comments WHITE BLOOD CELL COUNT (BEAKER) (test lrbp=860) 10.3 K/ L 3.5-10.5 RED BLOOD CELL COUNT (BEAKER) (test llga=325) 1.54 M/ L 3.93-5.22 HEMOGLOBIN (BEAKER) (test dqdj=642) 4.7 GM/DL 11.2-15.7 HEMATOCRIT (BEAKER) (test zjmd=127) 15.9 % 34.1-44.9 MEAN CORPUSCULAR VOLUME (BEAKER) (test wdko=644) 103.2 fL 79.4-94.8 MEAN CORPUSCULAR HEMOGLOBIN (BEAKER) (test hqlp=266) 30.5 pg 25.6-32.2 MEAN CORPUSCULAR HEMOGLOBIN CONC (BEAKER) (test rqel=806) 29.6 GM/DL 32.2-35.5 RED CELL DISTRIBUTION WIDTH (BEAKER) (test aqcb=371) 18.5 % 11.7-14.4 PLATELET COUNT (BEAKER) (test wlvi=035) 413 K/CU MM 150-450 MEAN PLATELET VOLUME (BEAKER) (test xrut=229) 9.2 fL 9.4-12.3 NUCLEATED RED BLOOD CELLS (BEAKER) (test jgvy=939) 0 /100 WBC 0-0 NEUTROPHILS RELATIVE PERCENT (BEAKER) (test dnlx=018) 85 % LYMPHOCYTES RELATIVE PERCENT (BEAKER) (test vpvl=500) 6 % MONOCYTES RELATIVE PERCENT (BEAKER) (test hycp=533) 6 % EOSINOPHILS RELATIVE PERCENT (BEAKER) (test pchh=297) 2 % BASOPHILS RELATIVE PERCENT (BEAKER) (test mwjs=523) 0 % NEUTROPHILS ABSOLUTE COUNT (BEAKER) (test zcfq=857) 8.67 K/ L 1.56-6.13 LYMPHOCYTES ABSOLUTE COUNT (BEAKER) (test wldj=275) 0.62 K/ L 1.18-3.74 MONOCYTES ABSOLUTE COUNT (BEAKER) (test yxjh=686) 0.66 K/ L 0.24-0.36 EOSINOPHILS ABSOLUTE COUNT (BEAKER) (test auxk=867) 0.18 K/ L 0.04-0.36 BASOPHILS ABSOLUTE COUNT (BEAKER) (test vext=563) 0.02 K/ L 0.01-0.08 IMMATURE GRANULOCYTES-RELATIVE PERCENT (BEAKER) (test gopj=5717) 1 % 0-1 PT/[id number] 17:28:00* Test Item Value Reference Range Comments PROTIME (BEAKER) (test mfwk=478) 13.5 seconds 11.9-14.2 INR (BEAKER) (test heyx=748) 1.1 <=5.9 PARTIAL THROMBOPLASTIN TIME (BEAKER) (test bycf=910) 33.6 seconds 22.5-36.0 Effective 10/20/2018: PT Reference Range ChangeNew: 11.9-14.2 Previous: 11.7-14. 7RECOMMENDED COUMADIN/WARFARIN INR THERAPY RANGESSTANDARD DOSE: 2.0-3.0 Include s: PROPHYLAXIS for venous thrombosis, systemic embolization; TREATMENT for venou s thrombosis and/or pulmonary embolus.HIGH RISK: Target INR is 2.5-3.5 for patie nts wiht mechanical heart valves.BASIC METABOLIC [id number] 06:56:00* Test Item Value Reference Range Comments SODIUM (BEAKER) (test kpwj=797) 136 meq/L 136-145 POTASSIUM (BEAKER) (test sttz=449) 4.2 meq/L 3.5-5.1 CHLORIDE (BEAKER) (test hirt=975) 107 meq/L 98-107 CO2 (BEAKER) (test zivu=680) 20 meq/L 22-29 BLOOD UREA NITROGEN (BEAKER) (test humn=281) 17 mg/dL 7-21 CREATININE (BEAKER) (test llqn=642) 0.78 mg/dL 0.57-1.25 GLUCOSE RANDOM (BEAKER) (test nttr=477) 94 mg/dL 70-105 CALCIUM (BEAKER) (test atlr=330) 9.4 mg/dL 8.4-10.2 EGFR (BEAKER) (test glmc=7733) 73 mL/min/1.73 sq m ESTIMATED GFR IS NOT ACCURATE CREATININE CLEARANCE IN PREDICTING GLOMERULAR FILTRATION RATE. ESTIMATED GFR IS NOT APPLICABLE FOR DIALYSIS PATIENTS. Tree Tapping Laborer ID - ISAIAS [facility] W/PLT COUNT & AUTO [id number] 06:32:00* Test Item Value Reference Range Comments WHITE BLOOD CELL COUNT (BEAKER) (test nmrp=683) 21.3 K/ L 3.5-10.5 RED BLOOD CELL COUNT (BEAKER) (test ypwp=386) 2.96 M/ L 3.93-5.22 HEMOGLOBIN (BEAKER) (test wqak=834) 8.6 GM/DL 11.2-15.7 HEMATOCRIT (BEAKER) (test mhse=255) 27.6 % 34.1-44.9 MEAN CORPUSCULAR VOLUME (BEAKER) (test cscs=858) 93.2 fL 79.4-94.8 MEAN CORPUSCULAR HEMOGLOBIN (BEAKER) (test ptih=073) 29.1 pg 25.6-32.2 MEAN CORPUSCULAR HEMOGLOBIN CONC (BEAKER) (test clsx=687) 31.2 GM/DL 32.2-35.5 RED CELL DISTRIBUTION WIDTH (BEAKER) (test vjju=172) 20.2 % 11.7-14.4 PLATELET COUNT (BEAKER) (test open=395) 430 K/CU MM 150-450 MEAN PLATELET VOLUME (BEAKER) (test jofg=093) 8.4 fL 9.4-12.3 NUCLEATED RED BLOOD CELLS (BEAKER) (test ufcg=051) 0 /100 WBC 0-0 NEUTROPHILS RELATIVE PERCENT (BEAKER) (test cxpm=785) 85 % LYMPHOCYTES RELATIVE PERCENT (BEAKER) (test vuau=613) 6 % MONOCYTES RELATIVE PERCENT (BEAKER) (test ghbp=339) 6 % EOSINOPHILS RELATIVE PERCENT (BEAKER) (test rahn=905) 2 % BASOPHILS RELATIVE PERCENT (BEAKER) (test ilis=363) 0 % NEUTROPHILS ABSOLUTE COUNT (BEAKER) (test klpg=632) 18.16 K/ L 1.56-6.13 LYMPHOCYTES ABSOLUTE COUNT (BEAKER) (test byof=843) 1.21 K/ L 1.18-3.74 MONOCYTES ABSOLUTE COUNT (BEAKER) (test lqgu=993) 1.30 K/ L 0.24-0.36 EOSINOPHILS ABSOLUTE COUNT (BEAKER) (test mskw=322) 0.44 K/ L 0.04-0.36 BASOPHILS ABSOLUTE COUNT (BEAKER) (test taeg=472) 0.05 K/ L 0.01-0.08 IMMATURE GRANULOCYTES-RELATIVE PERCENT (BEAKER) (test rubh=7795) 1 % 0-1 HEMOGLOBIN AND [id number] 18:22:00* Test Item Value Reference Range Comments HEMOGLOBIN (BEAKER) (test smyk=877) 8.4 GM/DL 11.2-15.7 HEMATOCRIT (BEAKER) (test ezoq=352) 26.0 % 34.1-44.9 Tree Tapping Laborer ID - [id number] 07:02:00* Test Item Value Reference Range Comments MAGNESIUM (BEAKER) (test jyrx=980) 1.8 mg/dL 1.6-2.6 Tree Tapping Laborer ID - ISAIAS MBASIC METABOLIC [id number] 07:02:00* Test Item Value Reference Range Comments SODIUM (BEAKER) (test ghox=332) 134 meq/L 136-145 POTASSIUM (BEAKER) (test zgzj=029) 4.0 meq/L 3.5-5.1 CHLORIDE (BEAKER) (test lkvy=627) 107 meq/L 98-107 CO2 (BEAKER) (test izdx=533) 20 meq/L 22-29 BLOOD UREA NITROGEN (BEAKER) (test lwrr=935) 19 mg/dL 7-21 CREATININE (BEAKER) (test qxas=718) 0.81 mg/dL 0.57-1.25 GLUCOSE RANDOM (BEAKER) (test efxp=170) 124 mg/dL 70-105 CALCIUM (BEAKER) (test ktow=568) 8.6 mg/dL 8.4-10.2 EGFR (BEAKER) (test tkbq=1593) 70 mL/min/1.73 sq m ESTIMATED GFR IS NOT ACCURATE CREATININE CLEARANCE IN PREDICTING GLOMERULAR FILTRATION RATE. ESTIMATED GFR IS NOT APPLICABLE FOR DIALYSIS PATIENTS. Tree Tapping Laborer ID - ISAIAS EPATIC FUNCTION [id number] 07:02:00* Test Item Value Reference Range Comments TOTAL PROTEIN (BEAKER) (test hshx=403) 5.8 gm/dL 6.0-8.3 ALBUMIN (BEAKER) (test ldwf=3183) 2.9 g/dL 3.5-5.0 BILIRUBIN TOTAL (BEAKER) (test rkme=484) 0.3 mg/dL 0.2-1.2 BILIRUBIN DIRECT (BEAKER) (test zkzm=074) 0.2 mg/dL 0.1-0.5 ALKALINE PHOSPHATASE (BEAKER) (test kkbz=258) 55 U/L 40-150 AST (SGOT) (BEAKER) (test xbls=380) 12 U/L 5-34 ALT (SGPT) (BEAKER) (test fked=954) 7 U/L 6-55 Tree Tapping Laborer ID - ISAIAS [facility] W/PLT COUNT & AUTO [id number] 06:55:00* Test Item Value Reference Range Comments WHITE BLOOD CELL COUNT (BEAKER) (test ljtu=390) 22.1 K/ L 3.5-10.5 RED BLOOD CELL COUNT (BEAKER) (test fmco=700) 2.62 M/ L 3.93-5.22 HEMOGLOBIN (BEAKER) (test qpgg=929) 7.9 GM/DL 11.2-15.7 HEMATOCRIT (BEAKER) (test qdji=068) 23.7 % 34.1-44.9 MEAN CORPUSCULAR VOLUME (BEAKER) (test zqog=481) 90.5 fL 79.4-94.8 Discordant result compares with previous; clinical correlation requires. MEAN CORPUSCULAR HEMOGLOBIN (BEAKER) (test dowl=181) 30.2 pg 25.6-32.2 MEAN CORPUSCULAR HEMOGLOBIN CONC (BEAKER) (test phhs=116) 33.3 GM/DL 32.2-35.5 RED CELL DISTRIBUTION WIDTH (BEAKER) (test imis=569) 20.3 % 11.7-14.4 PLATELET COUNT (BEAKER) (test aqnl=356) 404 K/CU MM 150-450 MEAN PLATELET VOLUME (BEAKER) (test nmkg=074) 8.5 fL 9.4-12.3 NUCLEATED RED BLOOD CELLS (BEAKER) (test zgzs=673) 0 /100 WBC 0-0 NEUTROPHILS RELATIVE PERCENT (BEAKER) (test mnuk=025) 86 % LYMPHOCYTES RELATIVE PERCENT (BEAKER) (test powq=808) 6 % MONOCYTES RELATIVE PERCENT (BEAKER) (test kieu=095) 6 % EOSINOPHILS RELATIVE PERCENT (BEAKER) (test nygq=411) 2 % BASOPHILS RELATIVE PERCENT (BEAKER) (test tqpj=980) 0 % NEUTROPHILS ABSOLUTE COUNT (BEAKER) (test rmwt=426) 18.98 K/ L 1.56-6.13 LYMPHOCYTES ABSOLUTE COUNT (BEAKER) (test psyk=929) 1.25 K/ L 1.18-3.74 MONOCYTES ABSOLUTE COUNT (BEAKER) (test mknl=044) 1.29 K/ L 0.24-0.36 EOSINOPHILS ABSOLUTE COUNT (BEAKER) (test kajg=356) 0.39 K/ L 0.04-0.36 BASOPHILS ABSOLUTE COUNT (BEAKER) (test lhbh=807) 0.05 K/ L 0.01-0.08 IMMATURE GRANULOCYTES-RELATIVE PERCENT (BEAKER) (test oqvr=2354) 1 % 0-1 PROTHROMBIN TIME/[id number] 06:21:00* Test Item Value Reference Range Comments PROTIME (BEAKER) (test zhud=732) 13.4 seconds 11.9-14.2 INR (BEAKER) (test wrim=406) 1.1 <=5.9 Effective 10/20/2018: PT Reference Range ChangeNew: 11.9-14.2 Previous: 11.7-14. 7RECOMMENDED COUMADIN/WARFARIN INR THERAPY RANGESSTANDARD DOSE: 2.0-3.0 Include s: PROPHYLAXIS for venous thrombosis, systemic embolization; TREATMENT for venou s thrombosis and/or pulmonary embolus.HIGH RISK: Target INR is 2.5-3.5 for patie nts wiht mechanical heart valves.RAD, CHEST, 1 VIEW, NON [id number] 02:24:00 Reason for exam:->r/o pnaShould this be performed at the bedside?->YesFINAL REPORT Chest one view. Clinical history: Abdominal pain. Comparison: Chest radiograph 11/05/2018. Technique: A single frontal view of the chest was obtained. Findings:There is a right IJ Port-A-Cath with tip in the SVC.The heart is normal in size. The aorta is tortuous. There is no focal p ulmonary consolidation, pleural effusion or pneumothorax. There is no pulmonary edema. The bony thorax is unremarkable. Impression: No focal pulmonary consolida tion. Signed: Carly Gates MDReport Verified Date/Time: 06/22/2019 02:24: 10 ALYSIS W/ REFLEX URINE [id number] 02:02:00* Test Item Value Reference Range Comments COLOR (BEAKER) (test wmzo=983) Light Yellow CLARITY (BEAKER) (test lodq=499) Hazy SPECIFIC GRAVITY UA (BEAKER) (test vbrw=858) 1.039 1.001-1.035 PH UA (BEAKER) (test wnlh=703) 5.5 5.0-8.0 PROTEIN UA (BEAKER) (test aaoe=337) 20 mg/dL Negative GLUCOSE UA (BEAKER) (test pwvb=555) Negative Negative KETONES UA (BEAKER) (test pqoa=867) Negative Negative BILIRUBIN UA (BEAKER) (test nuil=089) Negative Negative BLOOD UA (BEAKER) (test xrnm=827) Moderate Negative NITRITE UA (BEAKER) (test pmyp=991) Negative Negative LEUKOCYTE ESTERASE UA (BEAKER) (test skqt=723) Large Negative UROBILINOGEN UA (BEAKER) (test jphi=817) 0.2 mg/dL 0.2-1.0 RBC UA (BEAKER) (test dnlm=772) 27 /HPF WBC UA (BEAKER) (test bxvy=097) 92 /HPF SQUAMOUS EPITHELIAL (BEAKER) (test oxhc=198) < /HPF SOURCE(BEAKER) (test bmeq=7507) Tree Tapping Laborer ID - [auto]Tree Tapping Laborer ID - LIZETH [id number] 21:50:00FINAL REPORT TECHNIQUE: CT of the abdomen and pelvis WITH intravenous contrast and oral contrast. Dose modulation, iterative reconstruction, and/or weight-based adjustment of the mA/kV was utilized to reduce the radiation dose to as low as reasonably achievable. INDICATION: Abdominal pain, acute, nonlocalized. COMPARISON: 05/12/2019 CT. FINDINGS: LOWER THORAX: Unremarkable. HEPATOBILIARY: No focal hepatic lesions. Gallbladder is unremarkable. No biliary ductal dilatation.SPLEEN: No splenomegaly.PANCREAS: No focal masses or ductal dilatation. ADRENALS: No adrenal nodules.KIDNEYS/URETERS: Bilateral nephrostomy tubes in place with interval improved hydronephrosis. No exophytic masses or obstructing nephrolithiasis.PELVIC ORGANS/BLADDER: Uterus is surgically absent. Heterogeneously enhancing mass in the uterine cavity surrounding the vaginal cu ff with measurements of approximately 8.3 x 7.4 cm, previously 3.1 x 4.5 cm (axi al image 60). No bladder wall thickening. PERITONEUM/RETROPERITONEUM: Several sc attered intra-abdominal masses including a cystic mass at the anterior margin of the right psoas muscle with axial measurements of 4.3 x 3.8 cm, previously 1.1 x 1.7 cm (axial image 43), lesion in the left pericolonic gutter that is 3.5 x 3 .7 cm previously 1.7 x 1.8 cm (axial image 30), a round central mesenteric lesio n 0.9 x 2.0 cm, previously 1.3 x 1.7 cm (axial image 37), a lesion encasing the distal right ureter that is 5.5 x 3.6 cm, previously 2.5 x 4.3 cm (image 55), le svetlana of the anterior margin of the left psoas muscle that is 3.1 x 2.3 cm, previ ously 1.3 x 1.6 cm (image 44), medial to the left common iliac artery bifurcatio n is 2.7 x 2.4 cm, previously 2.3 x 2.3 cm (image 47), the left lower quadrant l esion that is 2.3 x 3.0 cm, previously 1.8 x 1.8 cm (image 46), and a lesion ant erior to the left hepatic lobe that is 4.1 x 3 cm, previously 3.3 x 2.1 cm (imag e 21).LYMPH NODES: Several abnormally enlarged mediastinal lymph nodes similar t o prior. For reference, mesenteric node that is 1.5 x 1.4 cm on image 38.VESSELS : Unremarkable. GI TRACT: No bowel wall thickening. Appendix not identified. No secondary signs of appendicitis. There are a few loops of mildly prominent small bowel adjacent to the masses in the left lower quadrant up to 2.9 cm diameter. BONES AND SOFT TISSUES: No acute osseous abnormality. Grade 1 stepwise anterolis thesis from L3 to L5 is degenerative disc disease with vacuum disc phenomenon. IMPRESSION: 1. Multiple intra-abdominal and intrapelvic masses consistent with n eoplasm have increased in size compared to prior consistent with progression of disease. There are a few loops of mildly distended small bowel in the left lower adjacent to the masses without jes obstruction. 2. Bilateral nephrostomy tub es are in place with interval improved hydronephrosis. 3. Hysterectomy. Signed: Joshua Chávez MDReport Verified Date/Time: 06/21/2019 21:50:47 Electronic ally signed by: JOSHUA CHÁVEZ MD on 06/21/2019 09:50 PM HEPATIC FUNCTION PANEL 2019-06-21 20:10:00* Test Item Value Reference Range Comments TOTAL PROTEIN (BEAKER) (test tdra=425) 6.4 gm/dL 6.0-8.3 ALBUMIN (BEAKER) (test yqsm=2106) 3.3 g/dL 3.5-5.0 BILIRUBIN TOTAL (BEAKER) (test wcya=075) 0.1 mg/dL 0.2-1.2 BILIRUBIN DIRECT (BEAKER) (test rclv=754) < mg/dL 0.1-0.5 ALKALINE PHOSPHATASE (BEAKER) (test yafp=477) 59 U/L 40-150 AST (SGOT) (BEAKER) (test yffk=452) 14 U/L 5-34 ALT (SGPT) (BEAKER) (test qeca=092) 7 U/L 6-55 Tree Tapping Laborer ID - [id number] 20:09:00* Test Item Value Reference Range Comments LIPASE (BEAKER) (test xmxl=854) 24 U/L 8-78 Tree Tapping Laborer ID - [id number] 20:09:00* Test Item Value Reference Range Comments AMYLASE (BEAKER) (test mrsn=763) 45 U/L 25-125 Tree Tapping Laborer ID - BSBASIC METABOLIC [id number] 20:09:00* Test Item Value Reference Range Comments SODIUM (BEAKER) (test mbtw=071) 139 meq/L 136-145 POTASSIUM (BEAKER) (test glar=459) 4.8 meq/L 3.5-5.1 CHLORIDE (BEAKER) (test usfp=734) 109 meq/L 98-107 CO2 (BEAKER) (test uqhd=639) 22 meq/L 22-29 BLOOD UREA NITROGEN (BEAKER) (test sime=199) 24 mg/dL 7-21 CREATININE (BEAKER) (test leqq=186) 0.92 mg/dL 0.57-1.25 GLUCOSE RANDOM (BEAKER) (test havp=406) 101 mg/dL 70-105 CALCIUM (BEAKER) (test rqqm=412) 9.3 mg/dL 8.4-10.2 EGFR (BEAKER) (test qinh=2062) 61 mL/min/1.73 sq m ESTIMATED GFR IS NOT ACCURATE CREATININE CLEARANCE IN PREDICTING GLOMERULAR FILTRATION RATE. ESTIMATED GFR IS NOT APPLICABLE FOR DIALYSIS PATIENTS. Tree Tapping Laborer ID - BSCBC W/PLT COUNT & AUTO [id number] 19:58:00* Test Item Value Reference Range Comments WHITE BLOOD CELL COUNT (BEAKER) (test pbuj=451) 22.1 K/ L 3.5-10.5 RED BLOOD CELL COUNT (BEAKER) (test oxzk=259) 1.85 M/ L 3.93-5.22 HEMOGLOBIN (BEAKER) (test qirs=292) 5.7 GM/DL 11.2-15.7 HEMATOCRIT (BEAKER) (test plaz=094) 18.9 % 34.1-44.9 MEAN CORPUSCULAR VOLUME (BEAKER) (test enkl=767) 102.2 fL 79.4-94.8 MEAN CORPUSCULAR HEMOGLOBIN (BEAKER) (test lxqe=994) 30.8 pg 25.6-32.2 MEAN CORPUSCULAR HEMOGLOBIN CONC (BEAKER) (test gloj=576) 30.2 GM/DL 32.2-35.5 RED CELL DISTRIBUTION WIDTH (BEAKER) (test sjrn=419) 18.3 % 11.7-14.4 PLATELET COUNT (BEAKER) (test vlwa=935) 485 K/CU MM 150-450 MEAN PLATELET VOLUME (BEAKER) (test fpjl=755) 8.3 fL 9.4-12.3 NUCLEATED RED BLOOD CELLS (BEAKER) (test eyin=241) 0 /100 WBC 0-0 NEUTROPHILS RELATIVE PERCENT (BEAKER) (test zkpx=297) 86 % LYMPHOCYTES RELATIVE PERCENT (BEAKER) (test ftgb=060) 6 % MONOCYTES RELATIVE PERCENT (BEAKER) (test ixkr=472) 6 % EOSINOPHILS RELATIVE PERCENT (BEAKER) (test ewyc=096) 1 % BASOPHILS RELATIVE PERCENT (BEAKER) (test ystp=544) 0 % NEUTROPHILS ABSOLUTE COUNT (BEAKER) (test aiqx=113) 19.05 K/ L 1.56-6.13 LYMPHOCYTES ABSOLUTE COUNT (BEAKER) (test smpy=208) 1.29 K/ L 1.18-3.74 MONOCYTES ABSOLUTE COUNT (BEAKER) (test sgbc=986) 1.29 K/ L 0.24-0.36 EOSINOPHILS ABSOLUTE COUNT (BEAKER) (test liic=425) 0.31 K/ L 0.04-0.36 BASOPHILS ABSOLUTE COUNT (BEAKER) (test tnxs=382) 0.02 K/ L 0.01-0.08 IMMATURE GRANULOCYTES-RELATIVE PERCENT (BEAKER) (test bqii=4229) 1 % 0-1 PT/[id number] 19:56:00* Test Item Value Reference Range Comments PROTIME (BEAKER) (test eqzi=930) 13.6 seconds 11.9-14.2 INR (BEAKER) (test ltik=780) 1.1 <=5.9 PARTIAL THROMBOPLASTIN TIME (BEAKER) (test qpmh=687) 32.7 seconds 22.5-36.0 Effective 10/20/2018: PT Reference Range ChangeNew: 11.9-14.2 Previous: 11.7-14. 7RECOMMENDED COUMADIN/WARFARIN INR THERAPY RANGESSTANDARD DOSE: 2.0-3.0 Include s: PROPHYLAXIS for venous thrombosis, systemic embolization; TREATMENT for venou s thrombosis and/or pulmonary embolus.HIGH RISK: Target INR is 2.5-3.5 for patie nts wiht mechanical heart valves.TISSUE [id number] 08:15:00Surgical Pathology Report Case: [id number] Authorizing Provider: Damon Frankel, Collected: 05/27/2019 1259 Ordering Location: [facility] Radiology Main Received: 05/27/2019 9869 Patholog ist: Vel Murray MD Specimen: Pelvis, Right, right pelvic mass biopsy Addendum is issued to report additional results. The original diagnosis remains the same.[employer] Result:PD-L1 IHC 22C3 FDA(KEYTR UDA): CPS >/=1 (PD-L1 EXPRESSION)COMBINED POSITIVE SCORE: 10Please see the attached file for detailed information . Addendum electronically signed by Vel Murray MD on 06/03/2019 at 8:15 AMRIGHT PELVIC MASS, BIOPSY: - INVASIVE CARCINOMA WITH SQUAMOUS DIFFERENTIATION (SEE COMMENT) Signing Pathologist Direct Phone Line: [phone] signed by Vel Murray MD on 05/30/2019 at 6:07 PMSections show invasive carcinoma with abundant necrosis and abundant eosinophilic to clear cytoplasm. By immunohistochemistry, the tumor cells are positive for p40 and p16 (strong and diffuse, cytoplasmic and nuclear). PAX8 and GATA3 are also patchy positive, while WT1 is predominantly negative. The immunoprofile is compatible with patient's previously diagnosed "invasive squamous cell carcinoma" ([id number]). Clinical/radiological correlation is recommended. 57862, 17914, 22192 x 4GYN MALIGNANCYRIGHT PELVIC MASSReceived in formalin labeled "right pelvic" are multiple ace-pink tissue fragments measuring in aggregate 1.5 x 0.6 x 0.1 cm. The specimen is submitted entirely in cassette A1. TH/plPerformed.The interpretation of this case included the use of immunohistochemistry or special stains.Please see the immunohistochemistry results in the COMMENT section. Control Slides Examined: In-house known positive controls were evaluated along with the test tissue. These control slides run alongside of the patients sample show appropriate staining. Internal positive and negative controls when available are evaluated Immunohistochemistry technical testing was performed at [facility] where it was developed and its performance charac teristics were determined. It has not been cleared or approved by the U.S. Food and Drug Administration. The FDA has determined that such clearance or approval is not necessary. The test is used for clinical purposes. It should not be regar ded as investigational or for research. This laboratory is certified under the [facility] Improvement Amendments of 1988 (CLIA-88) as qualified to perf orm high complexity clinical laboratory testing.CT, BIOPSY/ASPIRATION/INJECTION 2019-05-27 20:19:00Reason for Exam:->R19.00, D49.9FINAL REPORT PROCEDURE: CT-guided biopsy of a right pelvic mass. Dose modulation, iterative reconstruction, and/or weight-based adjustment of the mA/kV was utilized to reduce the radiation dose to as low as reasonably achievable. INDICATION: Pelvic mass. COMPARISON: CT from 05/12/2019. SEDATION: Intravenous moderate sedation was administered by radiology nursing and monitored under the direction of the undersigned radiologist. The patient's vital signs were monitored throughout the procedure and recorded in the patient's medical record by radiology nursing. Total intraservice time of sedation was 25 minutes. M EDICATIONS: 0.5 mg Versed, 25 mcg fentanyl DESCRIPTION: After obtaining informed written consent, the patient was brought to the procedure room and placed in th e prone position. Preliminary CT scan revealed the pelvic mass which had increa se in size. The right perirectal mass was targeted for biopsy. The overlying ski n was prepped and draped in the usual, sterile fashion and local 2% lidocaine an esthesia was administered. Under CT guidance, a 17-gauge introducer needle was p laced into the right perirectal mass, and five 18-gauge biopsies were obtained. Follow-up exam revealed no evidence for hematoma. There were no immediate compli cations. IMPRESSION: Successful core biopsy of a right perirectal mass. Signed: Jamil Griffin MDReport Verified Date/Time: 05/27/2019 20:19:54 Reading Location: [place] [id number] Body Reading Room [id number] 09:14:00* Test Item Value Reference Range Comments PARTIAL THROMBOPLASTIN TIME (BEAKER) (test ijpi=903) 31.5 seconds 22.5-36.0 PROTHROMBIN TIME/[id number] 09:13:00* Test Item Value Reference Range Comments PROTIME (BEAKER) (test pxmr=536) 13.4 seconds 11.9-14.2 INR (BEAKER) (test ubhx=873) 1.1 <=5.9 Effective 10/20/2018: PT Reference Range ChangeNew: 11.9-14.2 Previous: 11.7-14. 7RECOMMENDED COUMADIN/WARFARIN INR THERAPY RANGESSTANDARD DOSE: 2.0-3.0 Include s: PROPHYLAXIS for venous thrombosis, systemic embolization; TREATMENT for venou s thrombosis and/or pulmonary embolus.HIGH RISK: Target INR is 2.5-3.5 for patie nts wiht mechanical heart valves.HEPARIN ASSAY - LOW MOLECULAR [id number] 09:07:00* Test Item Value Reference Range Comments LOVENOX-ANTI 10A (BEAKER) (test pcip=8882) 0.13 u/ml 0.60-2.00 Anti-Factor 10-A Level (Heparin Assay for Low Molecular Weight Heparin)Monitorin g Guidelines: Blood samples should be obtained 4 hours post subcutaneous injecti on (time of Peak level) Therapeutic Peak Levels: 0.6-1.0 units/mL twice daily e noxaparin 1.0-2.0 units/mL once daily enoxaparinRef: CHEST 2012;141:t84b-u85l CBC W/PLT COUNT & AUTO [id number] 09:02:00* Test Item Value Reference Range Comments WHITE BLOOD CELL COUNT (BEAKER) (test wfkz=021) 11.2 K/ L 3.5-10.5 RED BLOOD CELL COUNT (BEAKER) (test koym=538) 2.85 M/ L 3.93-5.22 HEMOGLOBIN (BEAKER) (test bide=524) 8.9 GM/DL 11.2-15.7 HEMATOCRIT (BEAKER) (test fbhp=587) 28.2 % 34.1-44.9 MEAN CORPUSCULAR VOLUME (BEAKER) (test aylt=337) 98.9 fL 79.4-94.8 MEAN CORPUSCULAR HEMOGLOBIN (BEAKER) (test ekdv=478) 31.2 pg 25.6-32.2 MEAN CORPUSCULAR HEMOGLOBIN CONC (BEAKER) (test yveh=503) 31.6 GM/DL 32.2-35.5 RED CELL DISTRIBUTION WIDTH (BEAKER) (test fyjy=248) 17.1 % 11.7-14.4 PLATELET COUNT (BEAKER) (test zpha=921) 397 K/CU MM 150-450 MEAN PLATELET VOLUME (BEAKER) (test jjlv=031) 8.0 fL 9.4-12.3 NUCLEATED RED BLOOD CELLS (BEAKER) (test bbfi=657) 0 /100 WBC 0-0 NEUTROPHILS RELATIVE PERCENT (BEAKER) (test kjoz=431) 84 % LYMPHOCYTES RELATIVE PERCENT (BEAKER) (test tmjf=174) 6 % MONOCYTES RELATIVE PERCENT (BEAKER) (test pdkz=426) 9 % EOSINOPHILS RELATIVE PERCENT (BEAKER) (test vkbb=501) 1 % BASOPHILS RELATIVE PERCENT (BEAKER) (test pvzh=098) 0 % NEUTROPHILS ABSOLUTE COUNT (BEAKER) (test vluh=187) 9.38 K/ L 1.56-6.13 LYMPHOCYTES ABSOLUTE COUNT (BEAKER) (test qkia=302) 0.68 K/ L 1.18-3.74 MONOCYTES ABSOLUTE COUNT (BEAKER) (test bpfq=162) 1.00 K/ L 0.24-0.36 EOSINOPHILS ABSOLUTE COUNT (BEAKER) (test zztt=169) 0.09 K/ L 0.04-0.36 BASOPHILS ABSOLUTE COUNT (BEAKER) (test aemp=060) 0.03 K/ L 0.01-0.08 IMMATURE GRANULOCYTES-RELATIVE PERCENT (BEAKER) (test ptey=5129) 0 % 0-1 [id number] 08:57:00* Test Item Value Reference Range Comments PROTIME (BEAKER) (test tqpj=838) 13.1 seconds 11.9-14.2 INR (BEAKER) (test cpuo=776) 1.0 <=5.9 PARTIAL THROMBOPLASTIN TIME (BEAKER) (test dtnh=672) 31.6 seconds 22.5-36.0 Effective 10/20/2018: PT Reference Range ChangeNew: 11.9-14.2 Previous: 11.7-14. 7RECOMMENDED COUMADIN/WARFARIN INR THERAPY RANGESSTANDARD DOSE: 2.0-3.0 Include s: PROPHYLAXIS for venous thrombosis, systemic embolization; TREATMENT for venou s thrombosis and/or pulmonary embolus.HIGH RISK: Target INR is 2.5-3.5 for patie nts wiht mechanical heart valves.CT, [id number] 16:44:00FINAL REPORT CT scan of the chest, abdomen and pelvis. MEDICAL HISTORY: Pelvic mass. COMPARISON STUDY: May 12, 2019. TECHNIQUE: Contiguous helical slices were acquired through the chest, abdomen and pelvis post a dministration of intravenous and oral contrast. This exam was performed accordin g to our department dose optimization program which includes automated exposure control, adjustment of the mA and/or kV according to the patient's size and/or u se of iterative reconstruction technique. FINDINGS: The mediastinum demonstrates a right-sided Port-A-Cath in place. No suspicious masses or adenopathy are seen . There are no pleural effusions. The tracheobronchial tree is clear with no end obronchial lesions. The pulmonary parenchyma demonstrates scattered atelectatic changes. The liver, spleen, pancreas, and adrenal glands are unremarkable. There is mild to moderate left-sided and moderate to severe right-sided hydronephrosi s with significant right-sided hydroureter. Some delayed excretion is also noted on the right side. There are no dilated loops of bowel seen to suggest obstruct ion. The uterus has been resected. Multiple masses are seen in the pelvis. These include a 4.4 x 3.1 cm mass in the uterine fossa, 4.3 x 2.4 cm mass in the righ t adnexa which occludes the right ureter, 5.8 x 3.7 cm mass in the left anterior pelvis near some surgical clips. Slightly lateral and superior to this mass is a 1.7 x 1.8 cm mass. In the posterior left pelvic fat is a 1.8 x 1.7 cm mass. A 1.3 x 1.6 cm mass is seen anterior to the left psoas muscle occluding the left u reter. There is a 1.6 x 1.0 cm cystic mass in the anterior right psoas muscle. A 2.3 x 2.3 cm mass is seen adjacent to the left common iliac artery. There is a 1.6 cm mass anterior to the left common iliac artery. A 1.7 x 1.3 cm mid mesente sea mass is seen. The aorta is normal in caliber. Atherosclerosis is seen. Areas of presacral edema are seen as well is thickening of the mesorectal fascia. Mil d mesenteric edema seen throughout. Some diastases of the rectus abdominis muscl e is noted. Bone windows demonstrate degenerative changes. Mild retrolisthesis o f L3 on L4 is seen and of L4 on L5. IMPRESSION:1. Multiple pelvic abdominal mass es consistent with neoplasm.2. Bilateral hydronephrosis, pronounced on the right side with both ureters occluded by pelvic masses.3. Status post hysterectomy.4. Other findings as described above. Signed: Elie Hamptonort Verified Da te/Time: 05/13/2019 16:44:31 Reading Location: [address] Consult Reading [facility] , CHEST, WITH [id number] 16:47:00FINAL REPORT CT scan of the chest, abdomen and pelvis. MEDICAL HISTORY: Pelvic mass. COMPARISON STUDY: May 12, 2019. TECHNIQUE: Contiguous helical slices were acquired through the chest, abdomen and pelvis post administration of intravenous and oral contrast. This exam was performed according to our department dose optimization program which includes automated exposure control, adjustment of the mA and/or kV according to the patient's size and/or use of iterative reconstruction technique. FINDINGS: The mediastinum demonstrates a right-sided Port-A-Cath in place. No suspicious masses or adenopathy are seen. There are no pleural effusions. The tracheobronchial tree is clear with no endobronchial lesions. The pulmonary parenchyma demonstrates scattered atelectatic changes. The liver, spleen, pancreas, and adrenal glands are unremarkable. There is mild to moderate left-sided and moderate to severe right-sided hydronephrosis with significant right-sided hydroureter. Some delayed excretion is also noted on the right side. There are no dilated loops of bowel seen to suggest obstruction. The uterus has been resected. Multiple masses are seen in the pelvis. These include a 4.4 x 3.1 cm mass in the uterine fossa, 4.3 x 2.4 cm mass in the right adnexa which occludes the right ureter, 5.8 x 3.7 cm mass in the left anterior pelvis near some surgical clips. Slightly lateral and superior to this mass is a 1.7 x 1.8 cm mass. In the posterior left pelvic fat is a 1.8 x 1.7 cm mass. A 1.3 x 1.6 cm mass is seen anterior to the left psoas muscle occluding the left u reter. There is a 1.6 x 1.0 cm cystic mass in the anterior right psoas muscle. A 2.3 x 2.3 cm mass is seen adjacent to the left common iliac artery. There is a 1.6 cm mass anterior to the left common iliac artery. A 1.7 x 1.3 cm mid mesente sea mass is seen. The aorta is normal in caliber. Atherosclerosis is seen. Areas of presacral edema are seen as well is thickening of the mesorectal fascia. Mil d mesenteric edema seen throughout. Some diastases of the rectus abdominis muscl e is noted. Bone windows demonstrate degenerative changes. Mild retrolisthesis o f L3 on L4 is seen and of L4 on L5. IMPRESSION:1. Multiple pelvic abdominal mass es consistent with neoplasm.2. Bilateral hydronephrosis, pronounced on the right side with both ureters occluded by pelvic masses.3. Status post hysterectomy.4. Other findings as described above. Signed: Elie Hampton MDReport Verified Da te/Time: 05/12/2019 16:47:39 Reading Location: [facility] Diagnostic Imaging Reading Room - [place] [id number] Electronically signed by: ELIE HAMPTON M.D. on 04/24 04:47 PM AFB CULTURE + [id number] 12:52:00* Test Item Value Reference Range Comments CULTURE (BEAKER) (test avdd=5657) No acid-fast bacilli isolated in 42 days AFB SMEAR (BEAKER) (test kitd=395) No acid fast bacilli seen FUNGUS CULTURE + [id number] 13:43:00* Test Item Value Reference Range Comments CULTURE (BEAKER) (test were=2423) No fungus isolated in 28 days FUNGUS SMEAR (BEAKER) (test xvbt=8112) No fungi seen FUNGUS SMEAR (BEAKER) (test uzrk=84857) No fungi seen TISSUE [id number] 11:44:00Surgical Pathology Report Case: [id number] Authorizing Provider: Jostin Damon Carlosuvaldo, Collected: 02/14/2019 1453 Ordering Location: [facility] Received: 02/15/2019 0832 SERVICES Pathologist: Dalia Dalal MD Specimens: A) - Soft Tissue, Other, uterus, cervix, bilateral fallopian tubes, bilateral ovaries, segmental sigmoid colon B) - Mass, left pelvic sidewall mass C) - Soft Tissue, Other, sigmoid epiploica D) - Colostomy, Colostomy site E) - Omentum A. UTERUS, CERVIX, BILATERAL FALLOPIAN TUBES AND OVARIES, SIGMOID, HYSTERECTOMY, BILATERAL SALPINGO-OOPHORECTOMY AND SEGMENTAL SIGMOIDECTOMY: CERVIX - INVASIVE SQUAMOUS CELL CARCINOMA, POORLY DIFFERENTIATED - TUMOR INVOLVES OUTER CERVICAL STROMA AND POSTERIOR CIRCUMFERENTIAL MARGIN - LYMPHOVASCULAR INVASION PRESENT - UNREMARKABLE ECTOCERVICAL AND ENDOCERVICAL MUCOSA (NO DYSPLASIA IDENTIFIED) UTERINE CORPUS - INVASIVE SQUAMOUS CELL CARCINOMA INVOLVING OUTER POSTERIOR MYOMETRIUM AND SEROSA - INACTIVE ENDOMETRIUM FALLOPIAN TUBES - NO TUMOR PRESENT IN THE RIGHT TUBE - LEFT TUBE NOT IDENTIFIED RIGHT OVARY - INVASIVE SQUAMOUS CELL CARCINOMA, POORLY DIFFERENTIATED - TUMOR PRESENT PREDOMINANTLY ON THE SURFACE - LYMPHOVASCULAR INVASION PRESENT - HIGH GRADE SEROUS C ARCINOMA - SMALL FOCI OF TUMOR WITH TREATMENT EFFECT - FIBROMA LEFT OVARY - INVASIVE SQUAMOUS CELL CARCINOMA, POORLY DIFF ERENTIATED - TUMOR PRESENT PREDOMINANTLY ON THE SURFACE - LYMP HOVASCULAR INVASION PRESENT - HIGH GRADE SEROUS CARCINOMA - SMALL FOCI OF TUMOR WITH TREATMENT EFFECT RECTOSIGMOID - INVASIVE SQUAMO US CELL CARCINOMA, POORLY DIFFERENTIATED - TUMOR SHOWS TRANSMURAL INVOLVEMENT O F THE LARGE BOWEL WALL INCLUDING MUCOSA - PROXIMAL AND DISTAL SURGICAL MARGINS: NEGATIVE - TWO RECTAL LYMPH NODES, NO TUMOR PRESENT (0/2) - TWO LEFT PERIADNEX AL LYMPH NODES, NO TUMOR PRESENT (0/2)B. PELVIC, LEFT, SIDE WALL MASS, EXCISION: - SQUAMOUS CELL CARCINOMA, POORLY DIFFERENTIATED - LYMPHOVASCULAR INVASION PRES ENT - PERINEURIAL INVASION PRESENTC. SIGMOID, SOFT TISSUE, LABELED "EPIPLOICA", RESECTION: - SQUAMOUS CELL CARCINOMA, POORLY DIFFERENTIATED D. LARGE BOWEL, COL OSTOMY REVERSAL: - LARGE BOWEL WALL WITH SUBMUCOSAL FIBROSIS AND SEROSAL INFLAMM ATION - SKIN WITH DERMAL FIBROSIS - NO TUMOR PRESENTE. OMENTUM, OMENTECTOMY: - A DIPOSE TISSUE, NO TUMOR PRESENT Signing Pathologist Direct Phone Line: at 11:4 4 AMTwo separate tumors are identified. There is a squamous cell carcinoma encom passing posterior outer cervix, endomyometrium with entrapped bilateral adnexa a s well as portion of rectosigmoid colon. This tumor is diffusely positive for P4 0, P63, PAX-8, diffuse and strongly positivity with p16 and p53. Estrogen recept or (ER) is patchy positive and WT-1 is negative. High risk HPV is positive in th e squamous cell carcinoma. The above findings favor cervix as the primary tumor site, however in situ lesion is identified at the cervix mucosa. Alternately, t he tumor may originate in the vagina / anal canal. 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 This component is negative f or p40 and p63, diffusely positive for p16 and p53, PAX-8, ER and WT-1.The previ ous pelvic peritoneal biopsy ([id number]) was reviewed. Additional immunostains w ere performed. 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 No squamous carcin joana was present on the peritoneal biopsy.UTERINE CERVIX: Resection (Cervix Res - All Specimens)SPECIMEN Procedure: Total hysterectomy and bilateral salpin go-oophorectomy Procedure: Omentectomy Procedure: Sigmoidectomy, pel jelena side wall mass resection TUMOR Tumor Site: The primary site of the tumo r is not identified. Tumor Size: Greatest dimension in Centimeters (cm): 1 5 Centimeters (cm) Histologic Type: Squamous cell carcinoma, NOS Histolo gic Grade: G3: Poorly differentiated Tumor Extent: Depth of Stroma l Invasion in Millimeters (mm): Cannot be determined: The primary site of zoila or is not identified. Other Tissue / Organ Involvement: Right ovary Other Tissue / Organ Involvement: Left ovary Other Tissue / Organ Invol vement: Right fallopian tube Other Tissue / Organ Involvement: Left f allopian tube Other Tissue / Organ Involvement: Pelvic wall Other T issue / Organ Involvement: Bowel mucosa Other Tissue / Organ Involvement : Omentum Accessory Findings: Lymphovascular Invasion: Present MARGINS Ectocervical Margin: Uninvolved by invasive carcinoma Distance of Invasive Carcinoma from Margin in Millimeters (mm): 4 Millimeters (mm) Location: posterior Status of Intraepithelial Neoplasia at Margin: Cannot be assessed: No in situ component present Radial (Circumferential) Mar gin: Involved by invasive carcinoma LYMPH NODES : All lymph nodes negati ve for tumor cells Total Number of Node(s) Examined: 4 Site(s): re ctal , periadnexal (left) PATHOLOGIC STAGE CLASSIFICATION (pTNM, AJCC 8th Editio n) TNM Descriptors: y (post-treatment) Primary Tumor (pT): pT4 Reg ional Lymph Nodes (pN): Category (pN): pN0 Distant Metastasis (pM) : pM1 FIGO STAGE FIGO Stage: AILEEN SPECIAL STUDIES p16 Immunohistochemis try: Positive A. 10304 X 1, 93919 X 1, 75775 X 13B. 82662 X 1C. 65564 X 1D. 8 8304 X 1E. 79909 X 1High grade serous carcinoma of mullerian originA. Soft tissu e, other, uterus, cervix, bilateral fallopian tubes, bilateral ovaries, segmenta l sigmoid colonB. Mass tissue left pelvic sidewall massC. Soft tissue sigmoid ep iploic D. Colostomy tissue colostomy site E. Omentum tissue, omentumA. Received labeled "soft tissue, other, uterus, cervix, bilateral fallopian tubes, bilatera l ovaries, segmental sigmoid colon" is a composite resection consisting of a 9.5 x 7 x 4 cm uterus with an attached cervix measuring 2.5 x 1.5 cm with a 1 cm sl it-like os, a right possible portion of massive attached adnexa measuring 7.5 x 5 x 5 cm collectively and a posteriorly attached and adhesed portion of colon me asuring 8.5 cm in length with a diameter of 4 cm with two attached stapled nithya n and sparse pericolonic fat measuring 2 x 2 x 0.5 cm. The left adnexa are diffi cult to identify. The anterior uterine serosal surface displays multiple red-bro wn adhesions measuring 8.5 x 3.5 cm. The entire posterior aspect of the uterus i s replaced by a jeffers-white, necrotic, hemorrhagic tumor which is attached to the colon measuring 7.5 x 6 x 5.5 cm which is also attached to the massive right ad nexa structure with tumor extending for 7.5 x 7.5 x 3.5 cm to the left side of the uterus which may be obliterating the adnexal components. The endometrial cav ity measures 4.5 x 0.5 cm and is ace-pink and measures up to 0.1 cm thick. The m yometrium is ace-pink, trabeculated and measures up to 1.5 cm thick. A single gr ay-white whorled, intermural circumscribed mass is identified measuring 1.2 cm i n greatest dimension and the cut surface displays jeffers-white, whorled, firm surf sirisha devoid of hemorrhage and necrosis. The sigmoid colon displays that the attac hed tumor penetrates through the wall and involves mucosal surface located 1.5 c m from one margin and is 4.5 cm from the opposite margin. The cut surface of the massive right possible adnexal structure is diffusely jeffers-white, hard, replace d with tumor and residual ovarian and tubular tissue is difficult to identify.On possible single lymph node is identified within the pericolonic fat, which arnulfo uring up to 0.8 cm in greatest dimension. The cut surface of this lymph node is jeffers-white and hard.Ink code: Anterior lower uterus-blue Posterior uterus-black. Right, possible massive adnexal structure surface-orange [place] margin farthes t from tumor-yellow. KM/pl Gross photos are taken.Mail Processing Clerk sections are submitted of the specimen.Section code: A1, anterior cervix, full-thickness A2, posterior cervix, full-thickness to include tumor A3, anterior endomyometrium, f ull-thickness A4, intramural nodule and posterior endomyometrium, full-thickness to the posterior involvement of tumorA5- A6, anterior uterine serosal adhesion A7, right uterine fundus attachment to the right mass of the adnexal structure; A8-A9, possible adnexal tissue related to mass A10-A16, random sections of the r ight adnexal mass with one portion of cystic degeneration included in cassette A 11; A17, left uterine fundus and extension of mass A18-A19, mass and possible le ft adnexal tissue and tumor A20-A21, additional sections of tumor protruding fro m the posterior cervix of the uterus and adjacent to the left adnexal area A22-A 23, tumor associated with the posterior uterus and its relationship with the sig moid with one possible lymph node; A23, colonic margins A24, additional tumor wi thin sigmoid.KM/ewB. Received in formalin labeled with the patient's name, acce ssion number and "mass" is a 4.5 x 3.5 x 2 cm fragmented, friable jeffers-white lob ulated mass with overlying fibromembranous tissue which measures 5 x 3.5 x 0.2 c m. Mail Processing Clerk sections are submitted in cassettes B1-B5.C. Received in for jasson labeled with the patient's name, accession number and "soft tissue other" is a 3.5 x 2 x 0.5 cm portion of friable rubbery jeffers-white lobulated to red-bro wn tissue. Mail Processing Clerk sections are submitted in cassettes C1-C3. D. Recei elian in formalin labeled with the patient's name, accession number and "colostomy " Is an 8 cm in length of colon with diameter of 2.5 cm with attached pericolon ic fat measuring 6.5 x 1.5 x 0.5 cm. Both margins are stapled. Located 1.5 cm f rom one staple margin is an open area which may be consistent with a stoma measu ring 2 x 2 cm. The serosa is otherwise ace-pink and is hyperemic. The mucosal surface displays a normal fold and no discrete lesions are identified. No discr ete lesions or lymph nodes are seen within the attached adipose tissue. Ink cod e: Margin farthest from the stoma inked blue.Mail Processing Clerk sections are submit cesar of the specimen.Section code: Cassette D1 margins; D2-3 stoma; D4 random se ction of bowel wall; D5 vascularized adipose tissue/E. Received in formalin la beled with the patient's name, accession number, and "omentum" is an irregular p ortion of vascularized adipose tissue measuring 15 x 15 x 2.5 cm. The serosal s urface displays hemorrhagic and the cut surface displays vascularized hemorrhagi c adipose tissue without definite discrete masses or lymph nodes seen. Represen tative sections are submitted in cassette E1-7. The margin is included en face in cassette E1. KM/bcA to E. Performed.The interpretation of this case included the use of immunohistochemistry or special stains.Control Slides Examined: In- house known positive controls were evaluated along with the test tissue. These control slides run alongside of the patients sample show appropriate staining. I nternal positive and negative controls when available are evaluated Immunohistoc hemistry technical testing was performed at [facility] where it was developed and its performance characteristics we re determined. It has not been cleared or approved by the U.S. Food and Drug Adm inistration. The FDA has determined that such clearance or approval is not neces maris. The test is used for clinical purposes. It should not be regarded as inves tigational or for research. This laboratory is certified under the Clinical Labo ratory Improvement Amendments of 1988 (CLIA-88) as qualified to perform high com plexity clinical laboratory testing.BLOOD [id number] 02:00:00* Test Item Value Reference Range Comments CULTURE (BEAKER) (test ufzz=0537) No growth in 5 days BLOOD [id number] 02:00:00* Test Item Value Reference Range Comments CULTURE (BEAKER) (test wnde=4353) No growth in 5 days [id number] 06:32:00* Test Item Value Reference Range Comments MAGNESIUM (BEAKER) (test qznh=980) 1.6 mg/dL 1.6-2.6 BASIC METABOLIC [id number] 06:32:00* Test Item Value Reference Range Comments SODIUM (BEAKER) (test fqcg=662) 139 meq/L 136-145 POTASSIUM (BEAKER) (test iopw=205) 3.5 meq/L 3.5-5.1 CHLORIDE (BEAKER) (test cskb=920) 106 meq/L 98-107 CO2 (BEAKER) (test flsv=075) 26 meq/L 22-29 BLOOD UREA NITROGEN (BEAKER) (test oqvk=726) 6 mg/dL 7-21 CREATININE (BEAKER) (test shrn=903) 0.55 mg/dL 0.57-1.25 GLUCOSE RANDOM (BEAKER) (test qbzz=910) 110 mg/dL 70-105 CALCIUM (BEAKER) (test mslv=479) 8.6 mg/dL 8.4-10.2 EGFR (BEAKER) (test jvit=8786) 110 mL/min/1.73 sq m ESTIMATED GFR IS NOT ACCURATE CREATININE CLEARANCE IN PREDICTING GLOMERULAR FILTRATION RATE. ESTIMATED GFR IS NOT APPLICABLE FOR DIALYSIS PATIENTS. SURGICALLY OBTAINED CULTURE + GRAM [id number] 11:20:00* Test Item Value Reference Range Comments CULTURE (BEAKER) (test ruip=5873) STAPHYLOCOCCUS HAEMOLYTICUS From Broth Only Staphylococcus haemolyticus Clindamycin (test code=10) Erythromycin (test code=4) Linezolid (test code=40) Nitrofurantoin (test code=23) Oxacillin (test code=14) Rifampin (test code=43) Tetracycline (test code=2) Trimethoprim + Sulfamethoxazole (test code=47) Vancomycin (test code=13) CULTURE (BEAKER) (test cgwl=9946) STAPHYLOCOCCUS EPIDERMIDIS From Broth Only Staphylococcus epidermidis Clindamycin (test code=10) Erythromycin (test code=4) Linezolid (test code=40) Oxacillin (test code=14) Rifampin (test code=43) Tetracycline (test code=2) Trimethoprim + Sulfamethoxazole (test code=47) Vancomycin (test code=13) GRAM STAIN RESULT (BEAKER) (test xtmb=3545) <1+ WBCs GRAM STAIN RESULT (BEAKER) (test eyvj=764671) No organisms seen BASIC METABOLIC [id number] 10:47:00* Test Item Value Reference Range Comments SODIUM (BEAKER) (test ljgr=740) 139 meq/L 136-145 POTASSIUM (BEAKER) (test twjl=563) 2.8 meq/L 3.5-5.1 CHLORIDE (BEAKER) (test tirj=563) 104 meq/L 98-107 CO2 (BEAKER) (test tnkd=642) 29 meq/L 22-29 BLOOD UREA NITROGEN (BEAKER) (test tmix=503) 5 mg/dL 7-21 CREATININE (BEAKER) (test gzyq=302) 0.52 mg/dL 0.57-1.25 GLUCOSE RANDOM (BEAKER) (test ikpt=222) 118 mg/dL 70-105 CALCIUM (BEAKER) (test nlxc=842) 8.4 mg/dL 8.4-10.2 EGFR (BEAKER) (test srtz=6522) 117 mL/min/1.73 sq m ESTIMATED GFR IS NOT ACCURATE CREATININE CLEARANCE IN PREDICTING GLOMERULAR FILTRATION RATE. ESTIMATED GFR IS NOT APPLICABLE FOR DIALYSIS PATIENTS. CBC W/PLT COUNT & AUTO [id number] 10:32:00* Test Item Value Reference Range Comments WHITE BLOOD CELL COUNT (BEAKER) (test sulf=604) 6.6 K/ L 3.5-10.5 RED BLOOD CELL COUNT (BEAKER) (test bcva=442) 2.22 M/ L 3.93-5.22 HEMOGLOBIN (BEAKER) (test wpew=080) 8.0 GM/DL 11.2-15.7 HEMATOCRIT (BEAKER) (test igbl=205) 24.1 % 34.1-44.9 MEAN CORPUSCULAR VOLUME (BEAKER) (test hnhr=163) 108.6 fL 79.4-94.8 MEAN CORPUSCULAR HEMOGLOBIN (BEAKER) (test quqi=372) 36.0 pg 25.6-32.2 MEAN CORPUSCULAR HEMOGLOBIN CONC (BEAKER) (test dhnk=050) 33.2 GM/DL 32.2-35.5 RED CELL DISTRIBUTION WIDTH (BEAKER) (test qhit=581) 17.4 % 11.7-14.4 PLATELET COUNT (BEAKER) (test mjdj=595) 362 K/CU MM 150-450 MEAN PLATELET VOLUME (BEAKER) (test fjbj=375) 8.8 fL 9.4-12.3 NUCLEATED RED BLOOD CELLS (BEAKER) (test gtba=760) 0 /100 WBC 0-0 NEUTROPHILS RELATIVE PERCENT (BEAKER) (test mowe=332) 81 % LYMPHOCYTES RELATIVE PERCENT (BEAKER) (test xjnq=741) 11 % MONOCYTES RELATIVE PERCENT (BEAKER) (test ovwb=407) 6 % EOSINOPHILS RELATIVE PERCENT (BEAKER) (test iplp=296) 1 % BASOPHILS RELATIVE PERCENT (BEAKER) (test fyjv=139) 0 % NEUTROPHILS ABSOLUTE COUNT (BEAKER) (test sgcq=560) 5.37 K/ L 1.56-6.13 LYMPHOCYTES ABSOLUTE COUNT (BEAKER) (test jbdo=356) 0.73 K/ L 1.18-3.74 MONOCYTES ABSOLUTE COUNT (BEAKER) (test hcqk=651) 0.41 K/ L 0.24-0.36 EOSINOPHILS ABSOLUTE COUNT (BEAKER) (test szea=307) 0.05 K/ L 0.04-0.36 BASOPHILS ABSOLUTE COUNT (BEAKER) (test unfe=335) 0.01 K/ L 0.01-0.08 IMMATURE GRANULOCYTES-RELATIVE PERCENT (BEAKER) (test fdah=6497) 1 % 0-1 URINALYSIS W/ REFLEX URINE [id number] 22:41:00* Test Item Value Reference Range Comments COLOR (BEAKER) (test mtky=062) Light Yellow CLARITY (BEAKER) (test ssdf=703) Clear SPECIFIC GRAVITY UA (BEAKER) (test ewcm=951) 1.005 1.001-1.035 PH UA (BEAKER) (test ibgg=888) 7.5 5.0-8.0 PROTEIN UA (BEAKER) (test ksxg=929) Negative Negative GLUCOSE UA (BEAKER) (test buss=892) Negative Negative KETONES UA (BEAKER) (test ccve=767) Negative Negative BILIRUBIN UA (BEAKER) (test kuda=367) Negative Negative BLOOD UA (BEAKER) (test wuyp=370) Negative Negative NITRITE UA (BEAKER) (test neev=875) Negative Negative LEUKOCYTE ESTERASE UA (BEAKER) (test qbjd=654) Negative Negative UROBILINOGEN UA (BEAKER) (test rvqu=096) 0.2 mg/dL 0.2-1.0 RBC UA (BEAKER) (test zuvi=087) 0 /HPF WBC UA (BEAKER) (test jbwm=029) 2 /HPF MUCUS (BEAKER) (test chhc=6481) Rare SQUAMOUS EPITHELIAL (BEAKER) (test hdaf=905) < /HPF SOURCE(BEAKER) (test gbza=4978) BASIC METABOLIC [id number] 06:29:00* Test Item Value Reference Range Comments SODIUM (BEAKER) (test sraw=773) 139 meq/L 136-145 POTASSIUM (BEAKER) (test pjup=520) 2.9 meq/L 3.5-5.1 CHLORIDE (BEAKER) (test uwew=378) 104 meq/L 98-107 CO2 (BEAKER) (test enxr=945) 26 meq/L 22-29 BLOOD UREA NITROGEN (BEAKER) (test lxou=297) 8 mg/dL 7-21 CREATININE (BEAKER) (test zxln=886) 0.55 mg/dL 0.57-1.25 GLUCOSE RANDOM (BEAKER) (test aiak=059) 96 mg/dL 70-105 CALCIUM (BEAKER) (test ilmx=862) 8.7 mg/dL 8.4-10.2 EGFR (BEAKER) (test zvtm=9848) 110 mL/min/1.73 sq m ESTIMATED GFR IS NOT ACCURATE CREATININE CLEARANCE IN PREDICTING GLOMERULAR FILTRATION RATE. ESTIMATED GFR IS NOT APPLICABLE FOR DIALYSIS PATIENTS. CBC W/PLT COUNT & AUTO [id number] 06:05:00* Test Item Value Reference Range Comments WHITE BLOOD CELL COUNT (BEAKER) (test vgeo=904) 8.0 K/ L 3.5-10.5 RED BLOOD CELL COUNT (BEAKER) (test bofr=381) 2.42 M/ L 3.93-5.22 HEMOGLOBIN (BEAKER) (test oemv=205) 8.6 GM/DL 11.2-15.7 HEMATOCRIT (BEAKER) (test ugop=061) 26.6 % 34.1-44.9 MEAN CORPUSCULAR VOLUME (BEAKER) (test wzoo=912) 109.9 fL 79.4-94.8 MEAN CORPUSCULAR HEMOGLOBIN (BEAKER) (test tgdl=596) 35.5 pg 25.6-32.2 MEAN CORPUSCULAR HEMOGLOBIN CONC (BEAKER) (test vouy=576) 32.3 GM/DL 32.2-35.5 RED CELL DISTRIBUTION WIDTH (BEAKER) (test bqku=883) 17.5 % 11.7-14.4 PLATELET COUNT (BEAKER) (test uiez=507) 437 K/CU MM 150-450 MEAN PLATELET VOLUME (BEAKER) (test xbqr=149) 8.9 fL 9.4-12.3 NUCLEATED RED BLOOD CELLS (BEAKER) (test utqv=043) 0 /100 WBC 0-0 NEUTROPHILS RELATIVE PERCENT (BEAKER) (test qsuz=093) 78 % LYMPHOCYTES RELATIVE PERCENT (BEAKER) (test spoc=210) 14 % MONOCYTES RELATIVE PERCENT (BEAKER) (test whej=445) 7 % EOSINOPHILS RELATIVE PERCENT (BEAKER) (test ftra=544) 1 % BASOPHILS RELATIVE PERCENT (BEAKER) (test sqlf=809) 0 % NEUTROPHILS ABSOLUTE COUNT (BEAKER) (test hqfl=596) 6.21 K/ L 1.56-6.13 LYMPHOCYTES ABSOLUTE COUNT (BEAKER) (test lvax=384) 1.08 K/ L 1.18-3.74 MONOCYTES ABSOLUTE COUNT (BEAKER) (test npmb=858) 0.59 K/ L 0.24-0.36 EOSINOPHILS ABSOLUTE COUNT (BEAKER) (test cdyl=117) 0.04 K/ L 0.04-0.36 BASOPHILS ABSOLUTE COUNT (BEAKER) (test sdjo=518) 0.01 K/ L 0.01-0.08 IMMATURE GRANULOCYTES-RELATIVE PERCENT (BEAKER) (test sewr=8975) 1 % 0-1 CBC W/PLT COUNT & AUTO [id number] 06:03:00* Test Item Value Reference Range Comments WHITE BLOOD CELL COUNT (BEAKER) (test rqtc=255) 6.3 K/ L 3.5-10.5 RED BLOOD CELL COUNT (BEAKER) (test cnvg=582) 2.25 M/ L 3.93-5.22 HEMOGLOBIN (BEAKER) (test vixj=580) 8.2 GM/DL 11.2-15.7 HEMATOCRIT (BEAKER) (test nltb=422) 25.5 % 34.1-44.9 MEAN CORPUSCULAR VOLUME (BEAKER) (test yaed=033) 113.3 fL 79.4-94.8 MEAN CORPUSCULAR HEMOGLOBIN (BEAKER) (test esvc=967) 36.4 pg 25.6-32.2 MEAN CORPUSCULAR HEMOGLOBIN CONC (BEAKER) (test zays=163) 32.2 GM/DL 32.2-35.5 RED CELL DISTRIBUTION WIDTH (BEAKER) (test hhlz=712) 18.6 % 11.7-14.4 PLATELET COUNT (BEAKER) (test vfra=447) 417 K/CU MM 150-450 MEAN PLATELET VOLUME (BEAKER) (test tovp=804) 8.9 fL 9.4-12.3 NUCLEATED RED BLOOD CELLS (BEAKER) (test dfcy=286) 0 /100 WBC 0-0 NEUTROPHILS RELATIVE PERCENT (BEAKER) (test madp=541) 76 % LYMPHOCYTES RELATIVE PERCENT (BEAKER) (test qnfw=955) 15 % MONOCYTES RELATIVE PERCENT (BEAKER) (test kbqt=885) 8 % EOSINOPHILS RELATIVE PERCENT (BEAKER) (test beyx=536) 1 % BASOPHILS RELATIVE PERCENT (BEAKER) (test hvvl=102) 0 % NEUTROPHILS ABSOLUTE COUNT (BEAKER) (test gpyo=895) 4.75 K/ L 1.56-6.13 LYMPHOCYTES ABSOLUTE COUNT (BEAKER) (test eyeg=731) 0.94 K/ L 1.18-3.74 MONOCYTES ABSOLUTE COUNT (BEAKER) (test tbqp=270) 0.48 K/ L 0.24-0.36 EOSINOPHILS ABSOLUTE COUNT (BEAKER) (test hydc=110) 0.06 K/ L 0.04-0.36 BASOPHILS ABSOLUTE COUNT (BEAKER) (test svxh=943) 0.01 K/ L 0.01-0.08 IMMATURE GRANULOCYTES-RELATIVE PERCENT (BEAKER) (test yicj=4618) 1 % 0-1 BASIC METABOLIC [id number] 06:00:00* Test Item Value Reference Range Comments SODIUM (BEAKER) (test zxbu=937) 136 meq/L 136-145 POTASSIUM (BEAKER) (test mtpg=816) 3.7 meq/L 3.5-5.1 CHLORIDE (BEAKER) (test jsdf=034) 106 meq/L 98-107 CO2 (BEAKER) (test rbdi=830) 22 meq/L 22-29 BLOOD UREA NITROGEN (BEAKER) (test pqsm=839) 15 mg/dL 7-21 CREATININE (BEAKER) (test twwa=586) 0.60 mg/dL 0.57-1.25 GLUCOSE RANDOM (BEAKER) (test evwa=387) 72 mg/dL 70-105 CALCIUM (BEAKER) (test yefj=702) 8.4 mg/dL 8.4-10.2 EGFR (BEAKER) (test rzdy=6483) 99 mL/min/1.73 sq m ESTIMATED GFR IS NOT ACCURATE CREATININE CLEARANCE IN PREDICTING GLOMERULAR FILTRATION RATE. ESTIMATED GFR IS NOT APPLICABLE FOR DIALYSIS PATIENTS. ANAEROBIC [id number] 17:49:00* Test Item Value Reference Range Comments CULTURE (BEAKER) (test ugcl=6267) No anaerobes isolated BASIC METABOLIC [id number] 14:14:00* Test Item Value Reference Range Comments SODIUM (BEAKER) (test fstz=734) 138 meq/L 136-145 POTASSIUM (BEAKER) (test aqyf=660) 3.6 meq/L 3.5-5.1 CHLORIDE (BEAKER) (test fptn=378) 106 meq/L 98-107 CO2 (BEAKER) (test liyn=797) 23 meq/L 22-29 BLOOD UREA NITROGEN (BEAKER) (test rpnp=700) 14 mg/dL 7-21 CREATININE (BEAKER) (test ybxn=495) 0.56 mg/dL 0.57-1.25 GLUCOSE RANDOM (BEAKER) (test jgnz=412) 83 mg/dL 70-105 CALCIUM (BEAKER) (test rdih=267) 8.9 mg/dL 8.4-10.2 EGFR (BEAKER) (test xjyi=2059) 108 mL/min/1.73 sq m ESTIMATED GFR IS NOT ACCURATE CREATININE CLEARANCE IN PREDICTING GLOMERULAR FILTRATION RATE. ESTIMATED GFR IS NOT APPLICABLE FOR DIALYSIS PATIENTS. CBC W/PLT COUNT & AUTO [id number] 13:59:00* Test Item Value Reference Range Comments WHITE BLOOD CELL COUNT (BEAKER) (test rvbx=044) 6.9 K/ L 3.5-10.5 RED BLOOD CELL COUNT (BEAKER) (test lhbe=191) 2.54 M/ L 3.93-5.22 HEMOGLOBIN (BEAKER) (test zojd=670) 9.1 GM/DL 11.2-15.7 HEMATOCRIT (BEAKER) (test xpgb=272) 28.6 % 34.1-44.9 MEAN CORPUSCULAR VOLUME (BEAKER) (test elvh=181) 112.6 fL 79.4-94.8 MEAN CORPUSCULAR HEMOGLOBIN (BEAKER) (test wyxs=316) 35.8 pg 25.6-32.2 MEAN CORPUSCULAR HEMOGLOBIN CONC (BEAKER) (test hvsw=397) 31.8 GM/DL 32.2-35.5 RED CELL DISTRIBUTION WIDTH (BEAKER) (test yanb=911) 19.1 % 11.7-14.4 PLATELET COUNT (BEAKER) (test twio=976) 440 K/CU MM 150-450 MEAN PLATELET VOLUME (BEAKER) (test mhod=690) 8.7 fL 9.4-12.3 NUCLEATED RED BLOOD CELLS (BEAKER) (test oqju=550) 0 /100 WBC 0-0 NEUTROPHILS RELATIVE PERCENT (BEAKER) (test qzlx=354) 82 % LYMPHOCYTES RELATIVE PERCENT (BEAKER) (test sssc=147) 11 % MONOCYTES RELATIVE PERCENT (BEAKER) (test xrhx=706) 6 % EOSINOPHILS RELATIVE PERCENT (BEAKER) (test npry=272) 0 % BASOPHILS RELATIVE PERCENT (BEAKER) (test lyxz=939) 0 % NEUTROPHILS ABSOLUTE COUNT (BEAKER) (test jdun=845) 5.67 K/ L 1.56-6.13 LYMPHOCYTES ABSOLUTE COUNT (BEAKER) (test ivwp=740) 0.76 K/ L 1.18-3.74 MONOCYTES ABSOLUTE COUNT (BEAKER) (test fffe=722) 0.41 K/ L 0.24-0.36 EOSINOPHILS ABSOLUTE COUNT (BEAKER) (test awog=671) 0.02 K/ L 0.04-0.36 BASOPHILS ABSOLUTE COUNT (BEAKER) (test omug=069) 0.01 K/ L 0.01-0.08 IMMATURE GRANULOCYTES-RELATIVE PERCENT (BEAKER) (test ppev=7772) 0 % 0-1 RAD, ABDOMEN/KUB, 1 VIEW [id number] 10:09:00Reason for exam:->abdominal distension and no bowel function post opFINAL REPORT KUB History provided: Abdominal distention, no postop bowel function Comparison exam: 10/30/2018 Midline skin clips from laparotomy. Surgical drain in the left mid abdomen. Mild postop ileus. No signs of mechanical bowel obstruction. Signed: Dhruv Howard MDReport Verified Date/Time: 02/17/2019 10:09:46 Reading Location: [facility] Radiology Reading Room W/PLT COUNT & AUTO DIFFERENTIAL 2019-02-17 10:07:00* Test Item Value Reference Range Comments WHITE BLOOD CELL COUNT (BEAKER) (test mtay=778) 7.2 K/ L 3.5-10.5 RED BLOOD CELL COUNT (BEAKER) (test xfrm=838) 2.37 M/ L 3.93-5.22 HEMOGLOBIN (BEAKER) (test exdx=563) 8.7 GM/DL 11.2-15.7 HEMATOCRIT (BEAKER) (test adxl=239) 26.3 % 34.1-44.9 MEAN CORPUSCULAR VOLUME (BEAKER) (test kkxq=850) 111.0 fL 79.4-94.8 MEAN CORPUSCULAR HEMOGLOBIN (BEAKER) (test oqiu=021) 36.7 pg 25.6-32.2 MEAN CORPUSCULAR HEMOGLOBIN CONC (BEAKER) (test gxeh=078) 33.1 GM/DL 32.2-35.5 RED CELL DISTRIBUTION WIDTH (BEAKER) (test vwxn=989) 21.1 % 11.7-14.4 PLATELET COUNT (BEAKER) (test oixw=609) 456 K/CU MM 150-450 MEAN PLATELET VOLUME (BEAKER) (test elfu=892) 8.8 fL 9.4-12.3 NUCLEATED RED BLOOD CELLS (BEAKER) (test ripw=508) 0 /100 WBC 0-0 (CELLAVISION MANUAL DIFF)2019-02-17 10:07:00* Test Item Value Reference Range Comments NEUTROPHILS - REL (CELLAVISION)(BEAKER) (test apon=1458) 84 % LYMPHOCYTES - REL (CELLAVISION)(BEAKER) (test sqkk=6266) 4 % MONOCYTES - REL (CELLAVISION)(BEAKER) (test zrqi=5718) 2 % PROMYELOCYTES - REL (CELLAVSION)(BEAKER) (test xhsf=1642) 1 % 0-0 BANDS - REL (CELLAVISION)(BEAKER) (test mirv=4427) 9 % 0-10 NEUTROPHILS - ABS (CELLAVISION)(BEAKER) (test fjls=3570) 6.05 K/ul 1.56-6.13 LYMPHOCYTES - ABS (CELLAVISION)(BEAKER) (test jqtj=7092) 0.29 K/ul 1.18-3.74 MONOCYTES - ABS (CELLAVISION)(BEAKER) (test seur=5604) 0.14 K/uL 0.24-0.36 PROMYELOCYTES - ABS (CELLAVISION)(BEAKER) (test jjya=8057) 0.07 K/uL 0.00-0.00 BANDS - ABS (CELLAVISION)(BEAKER) (test akfj=9991) 0.65 K/uL 0.00-0.80 TOTAL COUNTED (BEAKER) (test uyie=2012) 100 WBC MORPHOLOGY (BEAKER) (test tyvf=381) Normal PLT MORPHOLOGY (BEAKER) (test pbsn=281) Normal POLYCHROMATOPHILLIC RBCS(BEAKER) (test ppqn=353) 1+ few ANISOCYTOSIS (BEAKER) (test blpz=016) 1+ few MACROCYTES (BEAKER) (test drcj=173) 1+ few ARTIFACT (CELLAVISION)(BEAKER) (test fjlq=7811) Present PLATELET CONCENTRATION (CELLAVISION)(BEAKER) (test rllb=9379) Increased Received comment: User comments: Slide comments: BASIC METABOLIC [id number] 05:58:00* Test Item Value Reference Range Comments SODIUM (BEAKER) (test yxmb=556) 140 meq/L 136-145 POTASSIUM (BEAKER) (test clil=321) 3.9 meq/L 3.5-5.1 CHLORIDE (BEAKER) (test yjqj=380) 108 meq/L 98-107 CO2 (BEAKER) (test usrc=670) 19 meq/L 22-29 BLOOD UREA NITROGEN (BEAKER) (test xoru=509) 20 mg/dL 7-21 CREATININE (BEAKER) (test vksi=759) 0.61 mg/dL 0.57-1.25 GLUCOSE RANDOM (BEAKER) (test ziff=452) 105 mg/dL 70-105 CALCIUM (BEAKER) (test glly=788) 9.4 mg/dL 8.4-10.2 EGFR (BEAKER) (test xjho=8965) 98 mL/min/1.73 sq m ESTIMATED GFR IS NOT ACCURATE CREATININE CLEARANCE IN PREDICTING GLOMERULAR FILTRATION RATE. ESTIMATED GFR IS NOT APPLICABLE FOR DIALYSIS PATIENTS. CBC W/PLT COUNT & AUTO [id number] 03:38:00* Test Item Value Reference Range Comments WHITE BLOOD CELL COUNT (BEAKER) (test zhxf=465) 8.3 K/ L 3.5-10.5 RED BLOOD CELL COUNT (BEAKER) (test ooil=180) 2.50 M/ L 3.93-5.22 HEMOGLOBIN (BEAKER) (test xhgo=318) 9.1 GM/DL 11.2-15.7 HEMATOCRIT (BEAKER) (test iakw=292) 27.7 % 34.1-44.9 MEAN CORPUSCULAR VOLUME (BEAKER) (test bkme=100) 110.8 fL 79.4-94.8 MEAN CORPUSCULAR HEMOGLOBIN (BEAKER) (test ples=973) 36.4 pg 25.6-32.2 MEAN CORPUSCULAR HEMOGLOBIN CONC (BEAKER) (test medf=801) 32.9 GM/DL 32.2-35.5 RED CELL DISTRIBUTION WIDTH (BEAKER) (test iyvf=892) 21.2 % 11.7-14.4 PLATELET COUNT (BEAKER) (test nbiz=526) 424 K/CU MM 150-450 MEAN PLATELET VOLUME (BEAKER) (test mwos=861) 8.5 fL 9.4-12.3 NUCLEATED RED BLOOD CELLS (BEAKER) (test amcm=684) 0 /100 WBC 0-0 (CELLAVISION MANUAL DIFF)2019-02-17 02:20:00* Test Item Value Reference Range Comments NEUTROPHILS - REL (CELLAVISION)(BEAKER) (test rofv=9291) 87 % LYMPHOCYTES - REL (CELLAVISION)(BEAKER) (test lbtg=7992) 3 % MONOCYTES - REL (CELLAVISION)(BEAKER) (test irft=0779) 5 % BANDS - REL (CELLAVISION)(BEAKER) (test aune=8497) 5 % 0-10 NEUTROPHILS - ABS (CELLAVISION)(BEAKER) (test zisf=0495) 7.22 K/ul 1.56-6.13 LYMPHOCYTES - ABS (CELLAVISION)(BEAKER) (test tgui=4763) 0.25 K/ul 1.18-3.74 MONOCYTES - ABS (CELLAVISION)(BEAKER) (test cvuz=1839) 0.42 K/uL 0.24-0.36 BANDS - ABS (CELLAVISION)(BEAKER) (test mjtg=7888) 0.42 K/uL 0.00-0.80 TOTAL COUNTED (BEAKER) (test qnjl=6709) 100 WBC MORPHOLOGY (BEAKER) (test vzhd=078) Normal PLT MORPHOLOGY (BEAKER) (test jvmi=534) Normal POLYCHROMATOPHILLIC RBCS(BEAKER) (test iswh=952) 1+ few MACROCYTES (BEAKER) (test vhhv=464) 1+ few OVALOCYTES (BEAKER) (test jfnm=342) 1+ few BASOPHILIC STIPPLING (BEAKER) (test rwjn=540) Present ARTIFACT (CELLAVISION)(BEAKER) (test lcof=2178) Present PLATELET CONCENTRATION (CELLAVISION)(BEAKER) (test niam=4008) Adequate Received comment: Please perform 4 hrs post-transfusionUser comments: Slide comm ents: CBC W/PLT COUNT & AUTO [id number] 12:07:00* Test Item Value Reference Range Comments WHITE BLOOD CELL COUNT (BEAKER) (test eqhj=850) 12.6 K/ L 3.5-10.5 RED BLOOD CELL COUNT (BEAKER) (test tfzj=934) 1.96 M/ L 3.93-5.22 HEMOGLOBIN (BEAKER) (test gbeu=455) 7.3 GM/DL 11.2-15.7 HEMATOCRIT (BEAKER) (test iazf=412) 23.5 % 34.1-44.9 MEAN CORPUSCULAR VOLUME (BEAKER) (test ymbv=245) 119.9 fL 79.4-94.8 MEAN CORPUSCULAR HEMOGLOBIN (BEAKER) (test qlgu=507) 37.2 pg 25.6-32.2 MEAN CORPUSCULAR HEMOGLOBIN CONC (BEAKER) (test bqtk=171) 31.1 GM/DL 32.2-35.5 RED CELL DISTRIBUTION WIDTH (BEAKER) (test xycq=326) 17.2 % 11.7-14.4 PLATELET COUNT (BEAKER) (test ephi=290) 386 K/CU MM 150-450 MEAN PLATELET VOLUME (BEAKER) (test azpx=821) 8.6 fL 9.4-12.3 NUCLEATED RED BLOOD CELLS (BEAKER) (test qyxr=426) 0 /100 WBC 0-0 (CELLAVISION MANUAL DIFF)2019-02-16 12:07:00* Test Item Value Reference Range Comments NEUTROPHILS - REL (CELLAVISION)(BEAKER) (test lhwt=8913) 83 % LYMPHOCYTES - REL (CELLAVISION)(BEAKER) (test otsz=2460) 5 % MONOCYTES - REL (CELLAVISION)(BEAKER) (test uwmi=0316) 3 % BANDS - REL (CELLAVISION)(BEAKER) (test texd=5111) 9 % 0-10 NEUTROPHILS - ABS (CELLAVISION)(BEAKER) (test iwuh=3964) 10.46 K/ul 1.56-6.13 LYMPHOCYTES - ABS (CELLAVISION)(BEAKER) (test vrmc=9755) 0.63 K/ul 1.18-3.74 MONOCYTES - ABS (CELLAVISION)(BEAKER) (test tjah=6790) 0.38 K/uL 0.24-0.36 BANDS - ABS (CELLAVISION)(BEAKER) (test ovka=7136) 1.13 K/uL 0.00-0.80 TOTAL COUNTED (BEAKER) (test herb=4356) 100 WBC MORPHOLOGY (BEAKER) (test nqol=824) Normal GIANT PLATELETS (BEAKER) (test kvhd=352) Present POLYCHROMATOPHILLIC RBCS(BEAKER) (test zozw=337) 3+ many ANISOCYTOSIS (BEAKER) (test vxgn=628) 2+ moderate MICROCYTES (BEAKER) (test rgsi=670) 1+ few POIKILOCYTES (BEAKER) (test yfhd=781) 2+ moderate ELLIPTOCYTES (BEAKER) (test xsgg=028) 1+ few OVALOCYTES (BEAKER) (test gobc=482) 2+ moderate TEAR DROP CELLS (BEAKER) (test kutb=026) 1+ few ARTIFACT (CELLAVISION)(BEAKER) (test kvou=7330) Present PLATELET CONCENTRATION (CELLAVISION)(BEAKER) (test bqgd=2918) Adequate Received comment: User comments: Slide comments: WBC: SEGMENTED WITH TOXIC GRANU LATIONS PRESENT CBC W/PLT COUNT & AUTO [id number] 10:09:00* Test Item Value Reference Range Comments WHITE BLOOD CELL COUNT (BEAKER) (test ours=701) 11.2 K/ L 3.5-10.5 RED BLOOD CELL COUNT (BEAKER) (test faje=601) 2.03 M/ L 3.93-5.22 HEMOGLOBIN (BEAKER) (test omnq=892) 7.7 GM/DL 11.2-15.7 HEMATOCRIT (BEAKER) (test sjbu=100) 24.3 % 34.1-44.9 MEAN CORPUSCULAR VOLUME (BEAKER) (test omba=921) 119.7 fL 79.4-94.8 MEAN CORPUSCULAR HEMOGLOBIN (BEAKER) (test xjpq=891) 37.9 pg 25.6-32.2 MEAN CORPUSCULAR HEMOGLOBIN CONC (BEAKER) (test lbqu=623) 31.7 GM/DL 32.2-35.5 RED CELL DISTRIBUTION WIDTH (BEAKER) (test ucba=517) 17.2 % 11.7-14.4 PLATELET COUNT (BEAKER) (test hnjr=311) 447 K/CU MM 150-450 MEAN PLATELET VOLUME (BEAKER) (test kypx=214) 8.6 fL 9.4-12.3 NUCLEATED RED BLOOD CELLS (BEAKER) (test kifu=301) 0 /100 WBC 0-0 (CELLAVISION MANUAL DIFF)2019-02-16 10:09:00* Test Item Value Reference Range Comments NEUTROPHILS - REL (CELLAVISION)(BEAKER) (test gusj=5440) 74 % LYMPHOCYTES - REL (CELLAVISION)(BEAKER) (test aywb=1637) 5 % MONOCYTES - REL (CELLAVISION)(BEAKER) (test gtny=9754) 6 % BANDS - REL (CELLAVISION)(BEAKER) (test lthr=4316) 15 % 0-10 NEUTROPHILS - ABS (CELLAVISION)(BEAKER) (test zpws=6696) 8.29 K/ul 1.56-6.13 LYMPHOCYTES - ABS (CELLAVISION)(BEAKER) (test vleo=8594) 0.56 K/ul 1.18-3.74 MONOCYTES - ABS (CELLAVISION)(BEAKER) (test hbfp=5191) 0.67 K/uL 0.24-0.36 BANDS - ABS (CELLAVISION)(BEAKER) (test vbkk=5242) 1.68 K/uL 0.00-0.80 TOTAL COUNTED (BEAKER) (test ylul=8579) 100 RBC MORPHOLOGY (BEAKER) (test wmpv=071) Normal WBC MORPHOLOGY (BEAKER) (test gvdw=733) Normal PLT MORPHOLOGY (BEAKER) (test geal=088) Normal GIANT PLATELETS (BEAKER) (test mjcl=753) Present POLYCHROMATOPHILLIC RBCS(BEAKER) (test oflq=804) 1+ few ANISOCYTOSIS (BEAKER) (test mcyk=239) 1+ few PLATELET CONCENTRATION (CELLAVISION)(BEAKER) (test elvv=4665) Adequate Received comment: User comments: Slide comments: BASIC METABOLIC [id number] 05:14:00* Test Item Value Reference Range Comments SODIUM (BEAKER) (test sbaw=847) 140 meq/L 136-145 POTASSIUM (BEAKER) (test ggvf=657) 4.8 meq/L 3.5-5.1 CHLORIDE (BEAKER) (test ofjt=033) 111 meq/L 98-107 CO2 (BEAKER) (test vmks=215) 24 meq/L 22-29 BLOOD UREA NITROGEN (BEAKER) (test fleo=914) 18 mg/dL 7-21 CREATININE (BEAKER) (test rlvq=850) 0.75 mg/dL 0.57-1.25 GLUCOSE RANDOM (BEAKER) (test hrnt=469) 130 mg/dL 70-105 CALCIUM (BEAKER) (test ywcq=364) 9.1 mg/dL 8.4-10.2 EGFR (BEAKER) (test ifms=8769) 77 mL/min/1.73 sq m ESTIMATED GFR IS NOT ACCURATE CREATININE CLEARANCE IN PREDICTING GLOMERULAR FILTRATION RATE. ESTIMATED GFR IS NOT APPLICABLE FOR DIALYSIS PATIENTS. BUN AND [id number] 12:05:00* Test Item Value Reference Range Comments BLOOD UREA NITROGEN (BEAKER) (test sqgh=327) 14 mg/dL 7-21 CREATININE (BEAKER) (test rkoh=164) 0.70 mg/dL 0.57-1.25 EGFR (BEAKER) (test ianh=6817) 83 mL/min/1.73 sq m ESTIMATED GFR IS NOT ACCURATE CREATININE CLEARANCE IN PREDICTING GLOMERULAR FILTRATION RATE. ESTIMATED GFR IS NOT APPLICABLE FOR DIALYSIS PATIENTS. CBC W/PLT COUNT & AUTO [id number] 10:36:00* Test Item Value Reference Range Comments WHITE BLOOD CELL COUNT (BEAKER) (test ztxg=949) 6.1 K/ L 3.5-10.5 RED BLOOD CELL COUNT (BEAKER) (test kkzs=144) 2.66 M/ L 3.93-5.22 HEMOGLOBIN (BEAKER) (test bpkd=259) 9.9 GM/DL 11.2-15.7 HEMATOCRIT (BEAKER) (test ktke=271) 31.1 % 34.1-44.9 MEAN CORPUSCULAR VOLUME (BEAKER) (test gupy=516) 116.9 fL 79.4-94.8 MEAN CORPUSCULAR HEMOGLOBIN (BEAKER) (test wfxe=202) 37.2 pg 25.6-32.2 MEAN CORPUSCULAR HEMOGLOBIN CONC (BEAKER) (test eoxf=682) 31.8 GM/DL 32.2-35.5 RED CELL DISTRIBUTION WIDTH (BEAKER) (test bpwn=012) 17.2 % 11.7-14.4 PLATELET COUNT (BEAKER) (test tiww=429) 465 K/CU MM 150-450 MEAN PLATELET VOLUME (BEAKER) (test eaxq=918) 9.1 fL 9.4-12.3 NUCLEATED RED BLOOD CELLS (BEAKER) (test hzlh=749) 0 /100 WBC 0-0 (CELLAVISION MANUAL DIFF)2019-02-15 10:36:00* Test Item Value Reference Range Comments NEUTROPHILS - REL (CELLAVISION)(BEAKER) (test jrqj=3632) 58 % LYMPHOCYTES - REL (CELLAVISION)(BEAKER) (test zbhi=3825) 6 % MONOCYTES - REL (CELLAVISION)(BEAKER) (test jent=5891) 3 % BANDS - REL (CELLAVISION)(BEAKER) (test ivla=1901) 30 % 0-10 ATYPICAL LYMPHOCYTES - REL (CELLAVISION)(BEAKER) (test jhij=5256) 2 % 0-0 NEUTROPHILS - ABS (CELLAVISION)(BEAKER) (test zvja=7836) 3.54 K/ul 1.56-6.13 LYMPHOCYTES - ABS (CELLAVISION)(BEAKER) (test ordf=7849) 0.37 K/ul 1.18-3.74 MONOCYTES - ABS (CELLAVISION)(BEAKER) (test qjbb=0705) 0.18 K/uL 0.24-0.36 BANDS - ABS (CELLAVISION)(BEAKER) (test qaqj=5176) 1.83 K/uL 0.00-0.80 ATYPICAL LYMPHOCYTES - ABS (CELLAVISION)(BEAKER) (test jhxi=8222) 0.12 K/uL 0.00-0.00 TOTAL COUNTED (BEAKER) (test nlim=7347) 100 GIANT PLATELETS (BEAKER) (test pskq=608) Present LARGE PLT(BEAKER) (test gnro=5372) Present PLASMA CELLS(BEAKER) (test pzuu=1780) Present POLYCHROMATOPHILLIC RBCS(BEAKER) (test bvsr=719) 1+ few ANISOCYTOSIS (BEAKER) (test mukj=542) 1+ few POIKILOCYTES (BEAKER) (test urmg=978) 1+ few SPHEROCYTES (BEAKER) (test itti=778) 1+ few ELLIPTOCYTES (BEAKER) (test umdz=904) 1+ few OVALOCYTES (BEAKER) (test viae=916) 1+ few TEAR DROP CELLS (BEAKER) (test mbum=817) 1+ few PLATELET CONCENTRATION (CELLAVISION)(BEAKER) (test slvt=6210) Increased Received comment: User comments: Slide comments: [id number] 07:01:00 * Test Item Value Reference Range Comments SODIUM (BEAKER) (test tnoc=770) 141 meq/L 136-145 POTASSIUM (BEAKER) (test rfoa=931) 4.7 meq/L 3.5-5.1 CHLORIDE (BEAKER) (test jvcj=601) 113 meq/L 98-107 CO2 (BEAKER) (test ovua=774) 20 meq/L 22-29 BLOOD GAS, [id number] 16:09:00* Test Item Value Reference Range Comments PH ARTERIAL (BEAKER) (test gpjv=685) 7.34 7.35-7.45 PCO2 ARTERIAL (BEAKER) (test lauy=075) 41 mmHg 35-45 PO2 ARTERIAL (BEAKER) (test mzuv=060) 106 mmHg 80-90 O2 SATURATION ARTERIAL (BEAKER) (test mysj=010) 97.6 % 96.0-97.0 HCO3 ARTERIAL (BEAKER) (test apqz=309) 22 mmol/L 21-29 BASE EXCESS ARTERIAL (BEAKER) (test jvwo=689) -3.8 mmol/L -2.0-3.0 PATIENT TEMPERATURE (BEAKER) (test yanw=0769) 37.0 C GLUCOSE-STAT [id number] 16:09:00* Test Item Value Reference Range Comments GLUCOSE RANDOM (BEAKER) (test sysv=581) 168 mg/dL 70-110 HGB/HCT (H&H) - STAT [id number] 16:09:00* Test Item Value Reference Range Comments HEMOGLOBIN (BEAKER) (test nrwd=056) 8.4 g/dL 12.0-15.0 HEMATOCRIT (BEAKER) (test nsnu=972) 25.0 % 36.0-45.0 CALCIUM, [id number] 16:08:00* Test Item Value Reference Range Comments CALCIUM IONIZED (BEAKER) (test oacv=325) 1.15 mmol/L 1.12-1.27 PH, BLOOD (BEAKER) (test hzty=2616) 7.34 SODIUM NA-STAT [id number] 16:08:00* Test Item Value Reference Range Comments SODIUM (BEAKER) (test scbt=004) 140 meq/L 135-148 POTASSIUM-STAT [id number] 16:08:00* Test Item Value Reference Range Comments POTASSIUM (BEAKER) (test icrg=130) 3.7 meq/L 3.6-5.5 CT, CHEST, WITH [id number] 14:56:00FINAL REPORT TECHNIQUE: CT of the chest, abdomen, and pelvis WITH intravenous contrast and WITH oral contrast. Dose modulation, iterative reconstruction, and/or weight- based adjustment of the mA/kV was utilized to reduce the radiation dose to as low as reasonably achievable. 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 COMPARISON: Abdomen and pelvis CT 11/08/2018, chest CT 10/23/2018. FINDINGS: LINES/TUBES: Right internal jugular chest port terminates at the junction of the right brachiocephalic vein and superior vena cava. LUNGS AND AIRWAYS: Central airways are patent. No new consolidation or suspicious pulmonary nodule. No significant change in size of the 4 mm pulmonary nodule in the left upper lobe (best seen on sagittal series image 110). Persistent linear scarring and/or atelectasis in the lingula.PLEURA: The pleural spaces are clear.HEART AND MEDIASTINUM: The visualized thyroid gland is normal. No significant mediastinal, hilar, or axillary lymphadenopathy. The heart and pericardium are within normal limits. Filling defects within lobar and segmental branches of the right pulmonary artery and possibly within segmental branches of the left pulmonary artery. HEPATOBILIARY: No focal hepatic lesions. Gallb ladder is unremarkable. No biliary ductal dilatation.SPLEEN: No splenomegaly.MEDEROS CREAS: No focal masses or ductal dilatation. ADRENALS: No adrenal nodules.KIDNEY S/URETERS: Decreased minimal bilateral hydronephrosis. No stones or solid mass l esions.PELVIC ORGANS/BLADDER: The complex solid and cystic pelvic mass has decre ased in size from 11.2 x 13.9 x 12.2 cm to 7.2 x 11.1 x 9.4 cm. The previously d escribed air foci within some of the cystic components has resolved. The bladder is underdistended, limiting its evaluation. PERITONEUM/RETROPERITONEUM: Small a mount of fluid in the pelvis. No free air.LYMPH NODES: Previously described prom inent left retroperitoneal lymph nodes are now subcentimeter in size.VESSELS: Ap parent filling defect within the left external iliac vein, suspicious for thromb us. Mild atherosclerotic vascular calcifications in the abdominal aorta without aneurysm. GI TRACT: Unchanged diverting colostomy in the left abdomen. No disten tion or wall thickening. BONES AND SOFT TISSUES: Degenerative changes of the vis ualized spine. Grade I anterolisthesis of L3 on L4 and of L4 on L5 without spond ylolysis. Soft tissues are unremarkable. IMPRESSION: Chest CT:*Pulmonary emboli .*Otherwise, no significant change since 10/23/2018. Abdomen and pelvis CT:*Decrea sed size of the pelvic mass. Resolution of the previously described air foci wit hin the mass.*Decreased minimal hydronephrosis bilaterally.*Resolved left retrop eritoneal lymphadenopathy.*Suspected deep vein thrombus in the left external timo ac vein. The pulmonary emboli findings were discussed with Dr. Frankel's nurse, who acknowledged the findings and stated she will relay the findings to may Fernando 01/11/2019 at 2:40 PM. Signed: Choco Ngo MDReport Verified Date/Time: 0 01/11/2019 14:56:03 Reading Location: [facility] [id number] CT Body Reading Room Electr onically signed by: CHOCO NGO MD on 01/11/2019 02:[address], ABDOMEN 2019-01-11 14:56:00FINAL REPORT TECHNIQUE: CT of the chest, abdomen, and pelvis WITH intravenous contrast and WITH oral contrast. Dose modulation, iterative reconstruction, and/or weight-based adjustment of the mA/kV was utilized to reduce the radiation dose to as low as reasonably achievable. 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 COMPARISON: Abdomen and pelvis CT 11/08/2018, chest CT 10/23/2018. FINDINGS: LINES/TUBES: Right internal jugular chest port terminates at the junction of the right brachiocephalic vein and superior vena cava. LUNGS AND AIRWAYS: Central airways are patent. No new consolidation or suspicious pulmonary nodule. No significant change in size of the 4 mm pulmonary nodule in the left upper lobe (best seen on sagittal series image 110). Persistent linear scarring and/or atelectasis in the lingula.PLEURA: The pleural spaces are clear.HEART AND MEDIASTINUM: The visualized thyroid gland is normal. No significant mediastinal, hilar, or axillary lymphadenopathy. The heart and pericardium are within normal limits. Filling defects within lobar and segmental branches of the right pulmonary artery and possibly within segmental branches of the left pulmonary artery. HEPATOBILIARY: No focal hepatic lesions. Gallb ladder is unremarkable. No biliary ductal dilatation.SPLEEN: No splenomegaly.MEDEROS CREAS: No focal masses or ductal dilatation. ADRENALS: No adrenal nodules.KIDNEY S/URETERS: Decreased minimal bilateral hydronephrosis. No stones or solid mass l esions.PELVIC ORGANS/BLADDER: The complex solid and cystic pelvic mass has decre ased in size from 11.2 x 13.9 x 12.2 cm to 7.2 x 11.1 x 9.4 cm. The previously d escribed air foci within some of the cystic components has resolved. The bladder is underdistended, limiting its evaluation. PERITONEUM/RETROPERITONEUM: Small a mount of fluid in the pelvis. No free air.LYMPH NODES: Previously described prom inent left retroperitoneal lymph nodes are now subcentimeter in size.VESSELS: Ap parent filling defect within the left external iliac vein, suspicious for thromb us. Mild atherosclerotic vascular calcifications in the abdominal aorta without aneurysm. GI TRACT: Unchanged diverting colostomy in the left abdomen. No disten tion or wall thickening. BONES AND SOFT TISSUES: Degenerative changes of the vis ualized spine. Grade I anterolisthesis of L3 on L4 and of L4 on L5 without spond ylolysis. Soft tissues are unremarkable. IMPRESSION: Chest CT:*Pulmonary emboli .*Otherwise, no significant change since 10/23/2018. Abdomen and pelvis CT:*Decrea sed size of the pelvic mass. Resolution of the previously described air foci wit hin the mass.*Decreased minimal hydronephrosis bilaterally.*Resolved left retrop eritoneal lymphadenopathy.*Suspected deep vein thrombus in the left external timo ac vein. The pulmonary emboli findings were discussed with Dr. Frankel's nurse, who acknowledged the findings and stated she will relay the findings to may Fernando 01/11/2019 at 2:40 PM. Signed: Choco Ngo MDReport Verified Date/Time: 0 01/11/2019 14:56:03 Reading Location: [facility] C013Y CT Body Reading Room Electr onically signed by: CHOCO NGO MD on 01/11/2019 02:56 PM [id number] 09:58:00* Test Item Value Reference Range Comments POC-CREATININE (BEAKER) (test lozu=9672) 0.7 mg/dL 0.6-1.3 [address] [address] POC-EGFR (BEAKER) (test qdil=4364) 83 mL/min/1.73M2 AFB CULTURE + [id number] 11:43:00* Test Item Value Reference Range Comments CULTURE (BEAKER) (test evjv=6754) No acid-fast bacilli isolated in 42 days AFB SMEAR (BEAKER) (test njwu=674) No acid fast bacilli seen FUNGUS CULTURE + [id number] 17:39:00* Test Item Value Reference Range Comments CULTURE (BEAKER) (test dmep=0406) <1+ Coral albicans FUNGUS SMEAR (BEAKER) (test qbiv=8642) No fungi seen BLOOD [id number] 14:54:00* Test Item Value Reference Range Comments CULTURE (BEAKER) (test dsuy=5749) From Aerobic Bottle Only Lactobacillus species GRAM STAIN RESULT (BEAKER) (test kfpk=7633) From aerobic bottle only: gram positive rods GRAM STAIN RESULT (BEAKER) (test visp=694468) From anaerobic bottle only: gram positive coccobacilli CULTURE (BEAKER) (test uguo=8660) EGGERTHELLA LENTA From Anaerobic Bottle Only Eggerthella lentaSusceptibility performed by:[facility], [address] [place] [id number] Amoxicillin + Clavulanate (test code=21) Clindamycin (test code=10) Meropenem (test code=34) Metronidazole (test code=56) Penicillin G (test code=3) GRAM STAIN RESULT (BEAKER) (test xcvh=226508) From anaerobic bottle only: gram positive coccobacilli TISSUE [id number] 10:19:00Surgical Pathology Report Case: [id number] Authorizing Provider: Damon Frankel, Collected: 11/01/2018 1546 Ordering Location: [facility] Received: 11/02/2018 0927 SERVICES Pathologist: Dalia Dalal MD Specimen: Soft Tissue, Other, Pelvic peritoneal for biopsy PELVIC PERITONEUM, BIOPSY - HIGH GRADE SEROUS CARCINOMA Signing Pathologist Direct Phone Line: [phone] signed by Dalia Dalal MD on 11/11/2018 at 10:19 AMNodules of tumor positive for ER, PAX- 8 and p53 are noted in the adipose tissue, consistent with the above diagnosis. [id number] x 2Procedure: Diagnostic laparoscopy converted to exploratory laparotomy, exploratory lap with diverted loop colostomy.Pre and postop diagnosis: Pelvic mass.Pelvic peritoneal for biopsyThe specimen is received in one part labeled with the patient's name, Maya Garcia, and accession number [id number] which corresponds to the accompanying requisition. The specimen is received in formalin labeled "soft tissue" and consists of a single irregular fragment of ace-pink fibromembranous tissue measuring 0.9 x 0.8 x 0.4 cm which bisected and submitted entirely in cassette A1. AG/pl Performed.The interpretation of this case included the use of immunohistochemistry or special stains.Control Slides Examined: In-house known positive controls were evaluated along with the test tissue. These control slides run alongside of the patients sample show appropriate staining. Internal positive and negative controls when available are evaluated Immunohistochemistry technical testing was performed at [facility], Pathology Laboratory where it was developed and its performance characteristics were determined. It has not been cleared or approved by the U.S. Food and Drug Administration. The FDA has determined that such clearance or approval is not necessary. The test is used for clinical pu rposes. It should not be regarded as investigational or for research. This labor atory is certified under the Clinical Laboratory Improvement Amendments of 1988 (CLIA-88) as qualified to perform high complexity clinical laboratory testing. CBC W/PLT COUNT & AUTO [id number] 08:48:00* Test Item Value Reference Range Comments WHITE BLOOD CELL COUNT (BEAKER) (test jhlu=624) 14.9 K/ L 3.5-10.5 RED BLOOD CELL COUNT (BEAKER) (test djrv=326) 3.13 M/ L 3.93-5.22 HEMOGLOBIN (BEAKER) (test csoc=635) 9.0 GM/DL 11.2-15.7 HEMATOCRIT (BEAKER) (test ihno=326) 27.9 % 34.1-44.9 MEAN CORPUSCULAR VOLUME (BEAKER) (test zmyu=430) 89.1 fL 79.4-94.8 MEAN CORPUSCULAR HEMOGLOBIN (BEAKER) (test ymvq=817) 28.8 pg 25.6-32.2 MEAN CORPUSCULAR HEMOGLOBIN CONC (BEAKER) (test jcoh=791) 32.3 GM/DL 32.2-35.5 RED CELL DISTRIBUTION WIDTH (BEAKER) (test gnkp=318) 16.3 % 11.7-14.4 PLATELET COUNT (BEAKER) (test lmkl=035) 579 K/CU MM 150-450 MEAN PLATELET VOLUME (BEAKER) (test yqcq=182) 8.5 fL 9.4-12.3 NUCLEATED RED BLOOD CELLS (BEAKER) (test xbfa=812) 0 /100 WBC 0-0 (CELLAVISION MANUAL DIFF)2018-11-11 08:48:00* Test Item Value Reference Range Comments NEUTROPHILS - REL (CELLAVISION)(BEAKER) (test hnsi=3855) 96 % MONOCYTES - REL (CELLAVISION)(BEAKER) (test wlbk=4912) 2 % BANDS - REL (CELLAVISION)(BEAKER) (test osyn=8371) 2 % 0-10 NEUTROPHILS - ABS (CELLAVISION)(BEAKER) (test fbow=0757) 14.30 K/ul 1.56-6.13 MONOCYTES - ABS (CELLAVISION)(BEAKER) (test ysmu=5999) 0.30 K/uL 0.24-0.36 BANDS - ABS (CELLAVISION)(BEAKER) (test jvgr=1109) 0.30 K/uL 0.00-0.80 TOTAL COUNTED (BEAKER) (test eegm=4459) 100 RBC MORPHOLOGY (BEAKER) (test kxvk=647) Normal WBC MORPHOLOGY (BEAKER) (test zwzb=777) Normal PLT MORPHOLOGY (BEAKER) (test efpz=337) Normal ARTIFACT (CELLAVISION)(BEAKER) (test ccjk=6066) Present PLATELET CONCENTRATION (CELLAVISION)(BEAKER) (test qjku=1035) Increased Received comment: User comments: Slide comments: COMPREHENSIVE METABOLIC PANEL 2018-11-11 08:08:00* Test Item Value Reference Range Comments TOTAL PROTEIN (BEAKER) (test cbqh=542) 4.9 gm/dL 6.0-8.3 ALBUMIN (BEAKER) (test wmje=4152) 2.2 g/dL 3.5-5.0 ALKALINE PHOSPHATASE (BEAKER) (test rfne=574) 67 U/L 40-150 BILIRUBIN TOTAL (BEAKER) (test erec=898) 0.1 mg/dL 0.2-1.2 SODIUM (BEAKER) (test muqp=879) 134 meq/L 136-145 POTASSIUM (BEAKER) (test ytvb=665) 4.0 meq/L 3.5-5.1 CHLORIDE (BEAKER) (test bvna=186) 105 meq/L 98-107 CO2 (BEAKER) (test dyrs=357) 24 meq/L 22-29 BLOOD UREA NITROGEN (BEAKER) (test srly=228) 14 mg/dL 7-21 CREATININE (BEAKER) (test nhvg=180) 1.08 mg/dL 0.57-1.25 GLUCOSE RANDOM (BEAKER) (test sjqz=940) 194 mg/dL 70-105 CALCIUM (BEAKER) (test qbin=706) 7.8 mg/dL 8.4-10.2 AST (SGOT) (BEAKER) (test xbwo=127) 13 U/L 5-34 ALT (SGPT) (BEAKER) (test sxja=046) 8 U/L 6-55 EGFR (BEAKER) (test tfvr=2759) 50 mL/min/1.73 sq m ESTIMATED GFR IS NOT ACCURATE CREATININE CLEARANCE IN PREDICTING GLOMERULAR FILTRATION RATE. ESTIMATED GFR IS NOT APPLICABLE FOR DIALYSIS PATIENTS. [id number] 07:48:00* Test Item Value Reference Range Comments PHOSPHORUS (BEAKER) (test chqm=557) 3.6 mg/dL 2.3-4.7 [id number] 07:48:00* Test Item Value Reference Range Comments MAGNESIUM (BEAKER) (test tkci=299) 1.6 mg/dL 1.6-2.6 CALCIUM, [id number] 07:00:00* Test Item Value Reference Range Comments CALCIUM IONIZED (BEAKER) (test sehq=306) 1.09 mmol/L 1.12-1.27 PH, BLOOD (BEAKER) (test gxrg=7144) 7.32 ANG, TUNNEL CATH CENTRAL INS W/PORT [id number] 17:00:00Please keep port a cath accessed after placementReason for exam:->port a cath placement for chemotherapy FINAL REPORT Right internal jugular chest port insertion History: Mullerian carcinoma, need for chemotherapy initiation. Modality: Sonography an d fluoroscopy. Sedation: Moderate sedation wa s administered. 1 mg of Versed and 50 mcg of fentanyl IV was used for moderate sedation monitored under my direction. Total intra-service time of sedation was 30 minutes. The patient's vital signs were monitored throughout the procedure and recorded in the patient's medical record by the nurse. Fraternity Adviser: Arjun Sanchez MD Award Clerk: MD Adelina (Fellow). Approach: Right internal jugular vein Estimated blood loss: < 5 cc. Specimen: None. Fluoroscopy Time: 0.8 min.Reference Air Kerma (Ka, r): 4.9 mGy. Technique: Informed written consent was obtained. Discussion of risks, benefits, and alternatives were made with the patient. The patient expressed understanding and agreed to proceed. A universal timeout was performed prior to starting the procedure. All elements maximal sterile barrier technique was utilized for this procedure, including utilization of sterile scrub solution for skin prep, a large sterile sheet to cover the areas of the patient that were not prepped, and hand hygiene, mask, head covering, and sterile gown for performing radiologist and scrub technologist. The skin was anesthetized with 2% lidocaine. Ultrasound evaluation showed a patent and compressible right internal jugular vein, which was punctured under direct real-time ultrasound guidance with a micropuncture needle. An ultrasound image was saved to PACS. A 0.018 inch wire was placed through the needle into the right atrium. A 4 Armenian micropuncture sheath was placed. A subcutaneous tunnel and pocket were created in the right anterior chest wall by blunt dissection. The pocket was flushed with antibiotic solution . A 6 Armenian Bard single lumen power injectable port was placed within the pocke t and the catheter brought through the tunnel. The catheter was cut to appropria te length A peel-away sheath was placed in the right IJ vein and the catheter wa s advanced through the sheath, with its distal tip terminating in the cavoatrial junction. The peel-away sheath was removed. The port was flushed and aspirated easily following placement. The skin incision was closed with 3-0 Monocryl and Dermabond. The small jugular incision site was closed using Dermabond. The dianne ent tolerated the procedure well and left the department in the same condition. R esults: Spot radiograph of the chest demonstrates the new right IJ Port-A-Cath to lie in the expected position with its tip overlying the cavoatrial junction. Impression: Successful, uncomplicated placement of a right internal jugular chest port using sonographic and fluoroscopic guidan ce and conscious sedation. The port is ready for immediate use. Signed: Arjun Ramirez MDReport Verified Date/Time: 11/10/2018 17:00:17 Reading Location: [facility] Radiology Reading Room Electronically signed by: ARJUN SANCHEZ MD o n 11/10/2018 05:00 PM TISSUE [id number] 15:07:00Surgical Pathology Report Case: [id number] Authorizing Provider: Amarilis Bourgeois Collected: 10/25/2018 1605 Ordering Location: [address] Received: 10/26/2018 1048 Service Pathologist: Vel Murray MD Specimen: Retroperitoneum Addendum is issued to report additional comments. The original diagnosis remains the same.COMMENTS:As discussed before, the immunoph enotypic findings and morphology could be compatible with high grade serous carc inoma. Due to the positivity of WT1, an ovarian/fallopian tube/peritoneal origin is favored over uterine origin. However, the finding is not entirely specific. Clinical/radiological correlation is strongly recommended. Addendum electronical ly signed by Vel Murray MD on 11/10/2018 at 3:07 PMLYMPH NODE, RETROPERITONEAL , BIOPSY: - POORLY DIFFERENTIATED ADENOCARCINOMA WITH NECROSIS, MOST COMP ATIBLE WITH MULLERIAN ORIGIN (SEE COMMENT) Signing Pathologist Direct Phone Line: [phone] signed by Vel Murray MD on 10/28/2018 at 3:28 PMPreliminary result electronically signed by Vel Murray MD on 10/27/2018 at 6 :24 PMSections show solid nests of poorly differentiated carcinoma with abundant necrosis, in fibrous tissue and with scattered lymphocytes. By immunohistochemi stry, the tumor cells are positive for CAM5.2, AE1/AE3, PAX8, WT1, p53, and ER ( patchy and weak), while predominantly negative for synaptophysin, p40, CD45, CDX 2 and GATA3. The findings are supportive of a diagnosis of poorly differentiated adenocarcinoma. Additionally, in the appropriate clinical setting, the findings would be most compatible with a Mullerian origin. The sampling is relatively sc ant, and further limited by abundant necrosis. But the histomorphology and immun oprofile could be seen in high grade serous carcinoma. Correlation with final re section specimen is strongly recommended, if available. [id number], 53019, 64237 X 10 Pre and postop diagnosis: biopsy of lymph node versus carcinomatosisRetroperiton eumReceived in formalin labeled with the patient's name, accession number and " retroperitoneal" are multiple jeffers-white to ace soft tissue cores ranging 0.1-0. 3 cm in length which are submitted in toto in A1. CG/pl The interpretation of bright kimbrough case included the use of immunohistochemistry or special stains.Please see bright jimenez immunohistochemistry results in the COMMENT section. Control Slides Examined: In-house known positive controls were evaluated along with the test tissue. T zaynab control slides run alongside of the patients sample show appropriate staini ng. Internal positive and negative controls when available are evaluated Immunoh istochemistry technical testing was performed at [facility] where it was developed and its performance characteristi cs were determined. It has not been cleared or approved by the U.S. Food and Ricardo g Administration. The FDA has determined that such clearance or approval is not necessary. The test is used for clinical purposes. It should not be regarded as investigational or for research. This laboratory is certified under the Clinical Laboratory Improvement Amendments of 1988 (CLIA-88) as qualified to perform hig h complexity clinical laboratory testing.COMPREHENSIVE METABOLIC [id number] 05:58:00* Test Item Value Reference Range Comments TOTAL PROTEIN (BEAKER) (test vlub=744) 5.0 gm/dL 6.0-8.3 ALBUMIN (BEAKER) (test rxwo=3776) 2.2 g/dL 3.5-5.0 ALKALINE PHOSPHATASE (BEAKER) (test fnjl=550) 71 U/L 40-150 BILIRUBIN TOTAL (BEAKER) (test lzni=037) 0.2 mg/dL 0.2-1.2 SODIUM (BEAKER) (test qwsg=232) 136 meq/L 136-145 POTASSIUM (BEAKER) (test bhmt=964) 3.6 meq/L 3.5-5.1 CHLORIDE (BEAKER) (test njul=142) 105 meq/L 98-107 CO2 (BEAKER) (test gibb=290) 24 meq/L 22-29 BLOOD UREA NITROGEN (BEAKER) (test pspb=864) 11 mg/dL 7-21 CREATININE (BEAKER) (test wsnv=012) 1.01 mg/dL 0.57-1.25 GLUCOSE RANDOM (BEAKER) (test yich=642) 119 mg/dL 70-105 CALCIUM (BEAKER) (test pcad=548) 7.9 mg/dL 8.4-10.2 AST (SGOT) (BEAKER) (test qizq=162) 19 U/L 5-34 ALT (SGPT) (BEAKER) (test okwx=124) 6 U/L 6-55 EGFR (BEAKER) (test mzpq=5908) 55 mL/min/1.73 sq m ESTIMATED GFR IS NOT ACCURATE CREATININE CLEARANCE IN PREDICTING GLOMERULAR FILTRATION RATE. ESTIMATED GFR IS NOT APPLICABLE FOR DIALYSIS PATIENTS. [id number] 05:56:00* Test Item Value Reference Range Comments PHOSPHORUS (BEAKER) (test bizm=526) 3.6 mg/dL 2.3-4.7 [id number] 05:56:00* Test Item Value Reference Range Comments MAGNESIUM (BEAKER) (test dlbs=917) 1.8 mg/dL 1.6-2.6 CALCIUM, [id number] 05:54:00* Test Item Value Reference Range Comments CALCIUM IONIZED (BEAKER) (test fzhv=919) 1.08 mmol/L 1.12-1.27 PH, BLOOD (BEAKER) (test qbev=0942) 7.41 CALCIUM, [id number] 05:54:00* Test Item Value Reference Range Comments CALCIUM IONIZED (BEAKER) (test lqfg=455) 1.08 mmol/L 1.12-1.27 PH, BLOOD (BEAKER) (test ktdr=2513) 7.40 CBC W/PLT COUNT & AUTO [id number] 05:31:00* Test Item Value Reference Range Comments WHITE BLOOD CELL COUNT (BEAKER) (test dxqj=131) 20.1 K/ L 3.5-10.5 RED BLOOD CELL COUNT (BEAKER) (test nkkd=455) 3.49 M/ L 3.93-5.22 HEMOGLOBIN (BEAKER) (test jtkv=901) 9.8 GM/DL 11.2-15.7 HEMATOCRIT (BEAKER) (test gvfc=551) 30.3 % 34.1-44.9 MEAN CORPUSCULAR VOLUME (BEAKER) (test bxco=006) 86.8 fL 79.4-94.8 MEAN CORPUSCULAR HEMOGLOBIN (BEAKER) (test gxbq=323) 28.1 pg 25.6-32.2 MEAN CORPUSCULAR HEMOGLOBIN CONC (BEAKER) (test dnsa=617) 32.3 GM/DL 32.2-35.5 RED CELL DISTRIBUTION WIDTH (BEAKER) (test evjz=561) 16.2 % 11.7-14.4 PLATELET COUNT (BEAKER) (test jmeq=389) 703 K/CU MM 150-450 MEAN PLATELET VOLUME (BEAKER) (test slsd=366) 8.6 fL 9.4-12.3 NUCLEATED RED BLOOD CELLS (BEAKER) (test twzv=922) 0 /100 WBC 0-0 NEUTROPHILS RELATIVE PERCENT (BEAKER) (test baoz=432) 85 % LYMPHOCYTES RELATIVE PERCENT (BEAKER) (test hblh=215) 6 % MONOCYTES RELATIVE PERCENT (BEAKER) (test ubxm=158) 6 % EOSINOPHILS RELATIVE PERCENT (BEAKER) (test waui=080) 2 % BASOPHILS RELATIVE PERCENT (BEAKER) (test esiy=008) 0 % NEUTROPHILS ABSOLUTE COUNT (BEAKER) (test zvrf=064) 17.12 K/ L 1.56-6.13 LYMPHOCYTES ABSOLUTE COUNT (BEAKER) (test glrq=374) 1.29 K/ L 1.18-3.74 MONOCYTES ABSOLUTE COUNT (BEAKER) (test auyy=843) 1.18 K/ L 0.24-0.36 EOSINOPHILS ABSOLUTE COUNT (BEAKER) (test hlsk=253) 0.38 K/ L 0.04-0.36 BASOPHILS ABSOLUTE COUNT (BEAKER) (test kjhp=589) 0.05 K/ L 0.01-0.08 IMMATURE GRANULOCYTES-RELATIVE PERCENT (BEAKER) (test cffm=5494) 1 % 0-1 URINALYSIS W/ REFLEX URINE [id number] 14:07:00* Test Item Value Reference Range Comments COLOR (BEAKER) (test cwbm=045) Yellow CLARITY (BEAKER) (test bcdz=705) Clear SPECIFIC GRAVITY UA (BEAKER) (test xbyi=212) 1.023 1.001-1.035 PH UA (BEAKER) (test edwx=752) 6.0 5.0-8.0 PROTEIN UA (BEAKER) (test ydon=262) 20 mg/dL Negative GLUCOSE UA (BEAKER) (test vbcn=113) Negative Negative KETONES UA (BEAKER) (test iwzd=254) Negative Negative BILIRUBIN UA (BEAKER) (test gkkg=890) Negative Negative BLOOD UA (BEAKER) (test udiy=099) Small Negative NITRITE UA (BEAKER) (test nhrd=004) Negative Negative LEUKOCYTE ESTERASE UA (BEAKER) (test eajf=122) Negative Negative UROBILINOGEN UA (BEAKER) (test quvg=378) 2.0 mg/dL 0.2-1.0 RBC UA (BEAKER) (test shzu=908) 3 /HPF WBC UA (BEAKER) (test wrcp=713) 4 /HPF MUCUS (BEAKER) (test oemf=2352) Rare SQUAMOUS EPITHELIAL (BEAKER) (test hnzm=356) 3 /HPF SOURCE(BEAKER) (test stkl=4256) [id number] 13:16:00* Test Item Value Reference Range Comments PROTIME (BEAKER) (test vmli=675) 15.7 seconds 11.9-14.2 INR (BEAKER) (test mvmv=082) 1.3 <=5.9 PARTIAL THROMBOPLASTIN TIME (BEAKER) (test tdri=756) 43.5 seconds 22.5-36.0 Effective 10/20/2018: PT Reference Range ChangeNew: 11.9-14.2 Previous: 11.7-14. 7RECOMMENDED COUMADIN/WARFARIN INR THERAPY RANGESSTANDARD DOSE: 2.0-3.0 Include s: PROPHYLAXIS for venous thrombosis, systemic embolization; TREATMENT for venou s thrombosis and/or pulmonary embolus.HIGH RISK: Target INR is 2.5-3.5 for patie nts wiht mechanical heart valves.[id number] 05:45:00* Test Item Value Reference Range Comments PHOSPHORUS (BEAKER) (test zuvz=191) 3.6 mg/dL 2.3-4.7 [id number] 05:45:00* Test Item Value Reference Range Comments MAGNESIUM (BEAKER) (test qjkk=803) 2.1 mg/dL 1.6-2.6 BASIC METABOLIC [id number] 05:45:00* Test Item Value Reference Range Comments SODIUM (BEAKER) (test igiv=017) 135 meq/L 136-145 POTASSIUM (BEAKER) (test tdre=279) 3.9 meq/L 3.5-5.1 CHLORIDE (BEAKER) (test qcas=922) 105 meq/L 98-107 CO2 (BEAKER) (test nsct=423) 23 meq/L 22-29 BLOOD UREA NITROGEN (BEAKER) (test ymwo=070) 12 mg/dL 7-21 CREATININE (BEAKER) (test lnyd=685) 0.99 mg/dL 0.57-1.25 GLUCOSE RANDOM (BEAKER) (test dmkx=362) 94 mg/dL 70-105 CALCIUM (BEAKER) (test wftx=823) 8.2 mg/dL 8.4-10.2 EGFR (BEAKER) (test esqe=5874) 56 mL/min/1.73 sq m ESTIMATED GFR IS NOT ACCURATE CREATININE CLEARANCE IN PREDICTING GLOMERULAR FILTRATION RATE. ESTIMATED GFR IS NOT APPLICABLE FOR DIALYSIS PATIENTS. CBC W/PLT COUNT & AUTO [id number] 05:42:00* Test Item Value Reference Range Comments WHITE BLOOD CELL COUNT (BEAKER) (test dumk=679) 20.1 K/ L 3.5-10.5 RED BLOOD CELL COUNT (BEAKER) (test jkju=380) 3.67 M/ L 3.93-5.22 HEMOGLOBIN (BEAKER) (test gfzt=915) 10.3 GM/DL 11.2-15.7 HEMATOCRIT (BEAKER) (test kfrd=301) 31.6 % 34.1-44.9 MEAN CORPUSCULAR VOLUME (BEAKER) (test jdyn=510) 86.1 fL 79.4-94.8 MEAN CORPUSCULAR HEMOGLOBIN (BEAKER) (test ovlz=943) 28.1 pg 25.6-32.2 MEAN CORPUSCULAR HEMOGLOBIN CONC (BEAKER) (test dtno=008) 32.6 GM/DL 32.2-35.5 RED CELL DISTRIBUTION WIDTH (BEAKER) (test ypuw=065) 16.0 % 11.7-14.4 PLATELET COUNT (BEAKER) (test njuo=700) 711 K/CU MM 150-450 MEAN PLATELET VOLUME (BEAKER) (test ckck=723) 8.3 fL 9.4-12.3 NUCLEATED RED BLOOD CELLS (BEAKER) (test zhoj=719) 0 /100 WBC 0-0 NEUTROPHILS RELATIVE PERCENT (BEAKER) (test mrhu=998) 84 % LYMPHOCYTES RELATIVE PERCENT (BEAKER) (test pwya=108) 7 % MONOCYTES RELATIVE PERCENT (BEAKER) (test nfzq=932) 6 % EOSINOPHILS RELATIVE PERCENT (BEAKER) (test vfxx=055) 2 % BASOPHILS RELATIVE PERCENT (BEAKER) (test tbnf=899) 0 % NEUTROPHILS ABSOLUTE COUNT (BEAKER) (test pnpm=325) 16.87 K/ L 1.56-6.13 LYMPHOCYTES ABSOLUTE COUNT (BEAKER) (test oewh=049) 1.40 K/ L 1.18-3.74 MONOCYTES ABSOLUTE COUNT (BEAKER) (test jwpf=253) 1.21 K/ L 0.24-0.36 EOSINOPHILS ABSOLUTE COUNT (BEAKER) (test qhvf=721) 0.44 K/ L 0.04-0.36 BASOPHILS ABSOLUTE COUNT (BEAKER) (test glwo=632) 0.05 K/ L 0.01-0.08 IMMATURE GRANULOCYTES-RELATIVE PERCENT (BEAKER) (test dpoh=0719) 1 % 0-1 CALCIUM, [id number] 05:24:00* Test Item Value Reference Range Comments CALCIUM IONIZED (BEAKER) (test kltb=709) 1.09 mmol/L 1.12-1.27 PH, BLOOD (BEAKER) (test tahe=7012) 7.45 CT, [id number] 23:31:00FINAL REPORT TECHNIQUE: CT of the abdomen and pelvis WITH intravenous contrast and WITH oral contrast. Dose modulation, iterative reconstruction, and/or weight-based adjustment of the mA/kV was utilized to reduce the radiation dose to as low as reasonably achievable. INDICATION: 68-year-old woman with abdominal pain. COMPARISON: Outside abdomen and pelvis CT 10/21/2018. FINDINGS: LOWER THORAX: Trace bilateral pleural effusions with adjacent relaxation atelectasis. HEPATOBILIARY: No focal hepatic lesions. Gallbladder is unremarkable. No biliary ductal dilatation.SPLEEN: No splenomegaly.PANCREAS: No focal masses or ductal dilatation. ADRENALS: No adrenal nodules.KIDNEYS/URETERS: Bilateral h ydronephrosis due to extrinsic compression from the pelvic mass, mild-moderate o n the right and mild on the left. No stones or solid mass lesions.PELVIC ORGANS/ BLADDER: No significant change in size of the 16.7 x 8.5 x 13.5 cm complex solid and cystic pelvic mass, previously 17.7 x 8.6 x 12.9 cm. Some of the cystic com ponents of the mass continues to contain foci of air, the largest cystic compone nt measures 7.8 x 8.3 cm; previously, this component measured approximately 9.1 x 9.5 cm. Small amount of air in the bladder, likely from recent catheterization . PERITONEUM/RETROPERITONEUM: Trace ascites in the abdomen and pelvis. No free a ir.LYMPH NODES: No significant change in size of the left para-aortic retroperit alejandra lymphadenopathy, the largest measures 1.3 cm.VESSELS: Unremarkable. GI TRA CT: Interval creation of a diverting colostomy in the left abdomen. The sigmoid colon appears inseparable from the mass. No distention or wall thickening. BONES AND SOFT TISSUES: Degenerative changes of the visualized spine. Expected change s from recent midline laparotomy. IMPRESSION:Overall, no significant change in size of the complex solid and cystic pelvic mass. Some of the cystic components of the mass have mildly decreased in size; persistent air within the cystic comp onents may represent superimposed infection. Interval creation of a diverting co lostomy in the left abdomen. No bowel obstruction. Bilateral hydronephrosis, rig ht greater than left, due to extrinsic compression from the pelvic mass. Unchang ed left retroperitoneal lymphadenopathy. Trace ascites. Signed: Choco Ngo MDReport Verified Date/Time: 11/08/2018 23:31:53 Reading Location: [facility] C013 Consult Reading Room Electronically signed by: CHOCO NGO MD on 0 11/08/2018 11:31 PM BASIC METABOLIC [id number] 05:51:00* Test Item Value Reference Range Comments SODIUM (BEAKER) (test wisk=306) 136 meq/L 136-145 POTASSIUM (BEAKER) (test paag=322) 5.0 meq/L 3.5-5.1 CHLORIDE (BEAKER) (test ntaj=843) 105 meq/L 98-107 CO2 (BEAKER) (test vmco=430) 24 meq/L 22-29 BLOOD UREA NITROGEN (BEAKER) (test foag=042) 12 mg/dL 7-21 CREATININE (BEAKER) (test bhvf=810) 1.00 mg/dL 0.57-1.25 GLUCOSE RANDOM (BEAKER) (test ulct=289) 102 mg/dL 70-105 CALCIUM (BEAKER) (test qmgy=869) 7.7 mg/dL 8.4-10.2 EGFR (BEAKER) (test ydnm=4868) 55 mL/min/1.73 sq m ESTIMATED GFR IS NOT ACCURATE CREATININE CLEARANCE IN PREDICTING GLOMERULAR FILTRATION RATE. ESTIMATED GFR IS NOT APPLICABLE FOR DIALYSIS PATIENTS. [id number] 05:47:00* Test Item Value Reference Range Comments MAGNESIUM (BEAKER) (test zndb=254) 1.7 mg/dL 1.6-2.6 CBC W/PLT COUNT & AUTO [id number] 05:39:00* Test Item Value Reference Range Comments WHITE BLOOD CELL COUNT (BEAKER) (test vfce=339) 19.9 K/ L 3.5-10.5 RED BLOOD CELL COUNT (BEAKER) (test gvlp=536) 3.84 M/ L 3.93-5.22 HEMOGLOBIN (BEAKER) (test olxv=138) 10.6 GM/DL 11.2-15.7 HEMATOCRIT (BEAKER) (test ctbg=009) 32.9 % 34.1-44.9 MEAN CORPUSCULAR VOLUME (BEAKER) (test jpwp=195) 85.7 fL 79.4-94.8 MEAN CORPUSCULAR HEMOGLOBIN (BEAKER) (test pfob=623) 27.6 pg 25.6-32.2 MEAN CORPUSCULAR HEMOGLOBIN CONC (BEAKER) (test wwai=360) 32.2 GM/DL 32.2-35.5 RED CELL DISTRIBUTION WIDTH (BEAKER) (test szqp=842) 15.9 % 11.7-14.4 PLATELET COUNT (BEAKER) (test cwgh=568) 702 K/CU MM 150-450 MEAN PLATELET VOLUME (BEAKER) (test wqyw=766) 8.6 fL 9.4-12.3 NUCLEATED RED BLOOD CELLS (BEAKER) (test vgby=155) 0 /100 WBC 0-0 NEUTROPHILS RELATIVE PERCENT (BEAKER) (test ukrz=055) 83 % LYMPHOCYTES RELATIVE PERCENT (BEAKER) (test ylfz=319) 7 % MONOCYTES RELATIVE PERCENT (BEAKER) (test zjmj=440) 6 % EOSINOPHILS RELATIVE PERCENT (BEAKER) (test vztr=844) 2 % BASOPHILS RELATIVE PERCENT (BEAKER) (test xuff=312) 0 % NEUTROPHILS ABSOLUTE COUNT (BEAKER) (test fatq=607) 16.60 K/ L 1.56-6.13 LYMPHOCYTES ABSOLUTE COUNT (BEAKER) (test ivpy=488) 1.48 K/ L 1.18-3.74 MONOCYTES ABSOLUTE COUNT (BEAKER) (test dgqy=308) 1.14 K/ L 0.24-0.36 EOSINOPHILS ABSOLUTE COUNT (BEAKER) (test kzdo=825) 0.48 K/ L 0.04-0.36 BASOPHILS ABSOLUTE COUNT (BEAKER) (test xvag=823) 0.07 K/ L 0.01-0.08 IMMATURE GRANULOCYTES-RELATIVE PERCENT (BEAKER) (test kkos=0004) 1 % 0-1 ANAEROBIC [id number] 08:37:00* Test Item Value Reference Range Comments CULTURE (BEAKER) (test aaio=5041) No anaerobes isolated CBC W/PLT COUNT & AUTO [id number] 07:02:00* Test Item Value Reference Range Comments WHITE BLOOD CELL COUNT (BEAKER) (test hogu=896) 16.3 K/ L 3.5-10.5 RED BLOOD CELL COUNT (BEAKER) (test gsbu=646) 3.88 M/ L 3.93-5.22 HEMOGLOBIN (BEAKER) (test spxm=590) 10.8 GM/DL 11.2-15.7 HEMATOCRIT (BEAKER) (test izpf=043) 33.2 % 34.1-44.9 MEAN CORPUSCULAR VOLUME (BEAKER) (test rixn=440) 85.6 fL 79.4-94.8 MEAN CORPUSCULAR HEMOGLOBIN (BEAKER) (test zvgf=823) 27.8 pg 25.6-32.2 MEAN CORPUSCULAR HEMOGLOBIN CONC (BEAKER) (test ojzm=530) 32.5 GM/DL 32.2-35.5 RED CELL DISTRIBUTION WIDTH (BEAKER) (test lsde=740) 15.7 % 11.7-14.4 PLATELET COUNT (BEAKER) (test vftl=813) 722 K/CU MM 150-450 MEAN PLATELET VOLUME (BEAKER) (test cxai=250) 8.4 fL 9.4-12.3 NUCLEATED RED BLOOD CELLS (BEAKER) (test uwbp=909) 0 /100 WBC 0-0 NEUTROPHILS RELATIVE PERCENT (BEAKER) (test jidn=657) 82 % LYMPHOCYTES RELATIVE PERCENT (BEAKER) (test pogk=005) 9 % MONOCYTES RELATIVE PERCENT (BEAKER) (test ugyn=411) 6 % EOSINOPHILS RELATIVE PERCENT (BEAKER) (test tkah=188) 2 % BASOPHILS RELATIVE PERCENT (BEAKER) (test ymvl=891) 0 % NEUTROPHILS ABSOLUTE COUNT (BEAKER) (test ymeg=914) 13.37 K/ L 1.56-6.13 LYMPHOCYTES ABSOLUTE COUNT (BEAKER) (test xjgx=292) 1.47 K/ L 1.18-3.74 MONOCYTES ABSOLUTE COUNT (BEAKER) (test cscn=068) 1.01 K/ L 0.24-0.36 EOSINOPHILS ABSOLUTE COUNT (BEAKER) (test acto=026) 0.30 K/ L 0.04-0.36 BASOPHILS ABSOLUTE COUNT (BEAKER) (test rxnp=293) 0.05 K/ L 0.01-0.08 IMMATURE GRANULOCYTES-RELATIVE PERCENT (BEAKER) (test oagy=1875) 1 % 0-1 CALCIUM, [id number] 06:35:00* Test Item Value Reference Range Comments CALCIUM IONIZED (BEAKER) (test plmx=928) 1.02 mmol/L 1.12-1.27 PH, BLOOD (BEAKER) (test udce=6394) 7.45 [id number] 06:18:00* Test Item Value Reference Range Comments PHOSPHORUS (BEAKER) (test sxkt=449) 2.9 mg/dL 2.3-4.7 [id number] 06:18:00* Test Item Value Reference Range Comments MAGNESIUM (BEAKER) (test tovo=431) 1.9 mg/dL 1.6-2.6 BASIC METABOLIC [id number] 06:18:00* Test Item Value Reference Range Comments SODIUM (BEAKER) (test fssi=637) 134 meq/L 136-145 POTASSIUM (BEAKER) (test epqx=683) 4.2 meq/L 3.5-5.1 CHLORIDE (BEAKER) (test tyoa=579) 105 meq/L 98-107 CO2 (BEAKER) (test okkp=103) 23 meq/L 22-29 BLOOD UREA NITROGEN (BEAKER) (test eznx=541) 12 mg/dL 7-21 CREATININE (BEAKER) (test diso=641) 0.95 mg/dL 0.57-1.25 GLUCOSE RANDOM (BEAKER) (test eiyq=722) 96 mg/dL 70-105 CALCIUM (BEAKER) (test vvda=801) 8.2 mg/dL 8.4-10.2 EGFR (BEAKER) (test fvra=6212) 58 mL/min/1.73 sq m ESTIMATED GFR IS NOT ACCURATE CREATININE CLEARANCE IN PREDICTING GLOMERULAR FILTRATION RATE. ESTIMATED GFR IS NOT APPLICABLE FOR DIALYSIS PATIENTS. SURGICALLY OBTAINED CULTURE + GRAM [id number] 16:21:00* Test Item Value Reference Range Comments CULTURE (BEAKER) (test qbcq=1044) ESCHERICHIA COLI <1+ Escherichia coli Amikacin (test code=1) Ampicillin + Sulbactam (test code=6) Aztreonam (test code=32) Cefepime (test code=51) Cefoxitin (test code=68) Ceftazidime (test code=27) Ceftriaxone (test code=52) Ertapenem (test code=38) Gentamicin (test code=18) Levofloxacin (test code=22) Meropenem (test code=34) Nitrofurantoin (test code=23) Piperacillin + Tazobactam (test code=29) Tetracycline (test code=2) Tobramycin (test code=25) Trimethoprim + Sulfamethoxazole (test code=47) CULTURE (BEAKER) (test voyq=7606) <1+ Coral albicans GRAM STAIN RESULT (BEAKER) (test qasm=0362) 2+ WBCs GRAM STAIN RESULT (BEAKER) (test xepe=647974) No organisms seen <1+ Skin floraCBC W/PLT COUNT & AUTO [id number] 06:36:00* Test Item Value Reference Range Comments WHITE BLOOD CELL COUNT (BEAKER) (test ilwa=078) 22.2 K/ L 3.5-10.5 RED BLOOD CELL COUNT (BEAKER) (test ssko=037) 4.17 M/ L 3.93-5.22 HEMOGLOBIN (BEAKER) (test eelt=368) 11.7 GM/DL 11.2-15.7 HEMATOCRIT (BEAKER) (test cllz=635) 37.2 % 34.1-44.9 MEAN CORPUSCULAR VOLUME (BEAKER) (test mqud=919) 89.2 fL 79.4-94.8 MEAN CORPUSCULAR HEMOGLOBIN (BEAKER) (test aqjd=384) 28.1 pg 25.6-32.2 MEAN CORPUSCULAR HEMOGLOBIN CONC (BEAKER) (test owgs=188) 31.5 GM/DL 32.2-35.5 RED CELL DISTRIBUTION WIDTH (BEAKER) (test vzqa=563) 15.8 % 11.7-14.4 PLATELET COUNT (BEAKER) (test uaql=216) 917 K/CU MM 150-450 MEAN PLATELET VOLUME (BEAKER) (test wtyy=778) 8.4 fL 9.4-12.3 NUCLEATED RED BLOOD CELLS (BEAKER) (test cfun=716) 0 /100 WBC 0-0 NEUTROPHILS RELATIVE PERCENT (BEAKER) (test mamd=782) 86 % LYMPHOCYTES RELATIVE PERCENT (BEAKER) (test ktbs=094) 7 % MONOCYTES RELATIVE PERCENT (BEAKER) (test kwvc=041) 5 % EOSINOPHILS RELATIVE PERCENT (BEAKER) (test aymn=601) 1 % BASOPHILS RELATIVE PERCENT (BEAKER) (test ugss=616) 0 % NEUTROPHILS ABSOLUTE COUNT (BEAKER) (test czto=392) 19.08 K/ L 1.56-6.13 LYMPHOCYTES ABSOLUTE COUNT (BEAKER) (test kvoq=239) 1.63 K/ L 1.18-3.74 MONOCYTES ABSOLUTE COUNT (BEAKER) (test djdk=267) 1.02 K/ L 0.24-0.36 EOSINOPHILS ABSOLUTE COUNT (BEAKER) (test nuqd=691) 0.17 K/ L 0.04-0.36 BASOPHILS ABSOLUTE COUNT (BEAKER) (test jzhl=953) 0.07 K/ L 0.01-0.08 IMMATURE GRANULOCYTES-RELATIVE PERCENT (BEAKER) (test soff=3528) 1 % 0-1 [id number] 05:31:00* Test Item Value Reference Range Comments PHOSPHORUS (BEAKER) (test kpal=946) 2.4 mg/dL 2.3-4.7 [id number] 05:31:00* Test Item Value Reference Range Comments MAGNESIUM (BEAKER) (test lmgr=020) 2.1 mg/dL 1.6-2.6 COMPREHENSIVE METABOLIC [id number] 05:31:00* Test Item Value Reference Range Comments TOTAL PROTEIN (BEAKER) (test lyrz=718) 6.3 gm/dL 6.0-8.3 ALBUMIN (BEAKER) (test ccyl=4256) 2.7 g/dL 3.5-5.0 ALKALINE PHOSPHATASE (BEAKER) (test xeds=673) 92 U/L 40-150 BILIRUBIN TOTAL (BEAKER) (test bhei=202) 0.4 mg/dL 0.2-1.2 SODIUM (BEAKER) (test dtqr=906) 134 meq/L 136-145 POTASSIUM (BEAKER) (test tnsr=714) 4.5 meq/L 3.5-5.1 CHLORIDE (BEAKER) (test hcjr=999) 102 meq/L 98-107 CO2 (BEAKER) (test lfry=348) 23 meq/L 22-29 BLOOD UREA NITROGEN (BEAKER) (test nlbv=317) 12 mg/dL 7-21 CREATININE (BEAKER) (test dale=246) 1.07 mg/dL 0.57-1.25 GLUCOSE RANDOM (BEAKER) (test qpde=755) 90 mg/dL 70-105 CALCIUM (BEAKER) (test reyq=733) 8.6 mg/dL 8.4-10.2 AST (SGOT) (BEAKER) (test pzvr=318) 23 U/L 5-34 ALT (SGPT) (BEAKER) (test ndei=802) 10 U/L 6-55 EGFR (BEAKER) (test czcg=8244) 51 mL/min/1.73 sq m ESTIMATED GFR IS NOT ACCURATE CREATININE CLEARANCE IN PREDICTING GLOMERULAR FILTRATION RATE. ESTIMATED GFR IS NOT APPLICABLE FOR DIALYSIS PATIENTS. CALCIUM, [id number] 05:08:00* Test Item Value Reference Range Comments CALCIUM IONIZED (BEAKER) (test ujyt=819) 1.06 mmol/L 1.12-1.27 PH, BLOOD (BEAKER) (test yluw=6222) 7.39 BLOOD [id number] 02:00:00* Test Item Value Reference Range Comments CULTURE (BEAKER) (test xluh=7829) No growth in 5 days BLOOD [id number] 02:00:00* Test Item Value Reference Range Comments CULTURE (BEAKER) (test demg=0573) No growth in 5 days RAD, CHEST, 1 VIEW, NON [id number] 15:52:00Reason for exam:->Fluid excessShould this be performed at the bedside?->YesFINAL REPORT TECHNIQUE: Frontal view of the chest. INDICATION: 68-year-old woman with fluid excess. COMPARISON: Chest radiograph 11/03/2018. FINDINGS: LINES/TUBES: None. LUNGS: Unchanged atelectasis in the right perihilar region and left midlung zone. PLEURA: No pneumothorax or significant pleural effusion. HEART AND MEDIASTINUM: The cardiomediastinal silhouette is unchanged. SOFT TISSUES AND BONES: Unremarkable. IMPRESSION:No significant change since 11/03/2018. Signed: Choco [place] Verified Date/Time: 11/05/2018 15:5 2:14 Reading Location: [address] Consult Reading Room Electronically stephanie d by: CHOCO NGO MD on 11/05/2018 03:52 PM EOSINOPHIL SMEAR, URINE 2018-11-05 07:38:00* Test Item Value Reference Range Comments EOSINOPHIL SMEAR, URINE (BEAKER) (test kwyz=1548) No EOS seen No EOS seen COMPREHENSIVE METABOLIC [id number] 06:20:00* Test Item Value Reference Range Comments TOTAL PROTEIN (BEAKER) (test ebel=274) 5.4 gm/dL 6.0-8.3 ALBUMIN (BEAKER) (test gicg=0969) 2.4 g/dL 3.5-5.0 ALKALINE PHOSPHATASE (BEAKER) (test narp=883) 87 U/L 40-150 BILIRUBIN TOTAL (BEAKER) (test xntd=357) 0.3 mg/dL 0.2-1.2 SODIUM (BEAKER) (test acpw=422) 133 meq/L 136-145 POTASSIUM (BEAKER) (test oqwu=617) 3.6 meq/L 3.5-5.1 CHLORIDE (BEAKER) (test hnyb=946) 105 meq/L 98-107 CO2 (BEAKER) (test nhca=673) 20 meq/L 22-29 BLOOD UREA NITROGEN (BEAKER) (test aogl=134) 14 mg/dL 7-21 CREATININE (BEAKER) (test opfp=656) 1.09 mg/dL 0.57-1.25 GLUCOSE RANDOM (BEAKER) (test knml=515) 98 mg/dL 70-105 CALCIUM (BEAKER) (test ggrf=576) 7.8 mg/dL 8.4-10.2 AST (SGOT) (BEAKER) (test xffn=988) 22 U/L 5-34 ALT (SGPT) (BEAKER) (test ryon=395) 11 U/L 6-55 EGFR (BEAKER) (test miuy=4496) 50 mL/min/1.73 sq m ESTIMATED GFR IS NOT ACCURATE CREATININE CLEARANCE IN PREDICTING GLOMERULAR FILTRATION RATE. ESTIMATED GFR IS NOT APPLICABLE FOR DIALYSIS PATIENTS. [id number] 06:10:00* Test Item Value Reference Range Comments PHOSPHORUS (BEAKER) (test sscv=082) 2.5 mg/dL 2.3-4.7 [id number] 06:10:00* Test Item Value Reference Range Comments MAGNESIUM (BEAKER) (test hyyu=138) 1.7 mg/dL 1.6-2.6 CBC W/PLT COUNT & AUTO [id number] 06:01:00* Test Item Value Reference Range Comments WHITE BLOOD CELL COUNT (BEAKER) (test dctb=042) 16.8 K/ L 3.5-10.5 RED BLOOD CELL COUNT (BEAKER) (test dbsg=087) 3.58 M/ L 3.93-5.22 HEMOGLOBIN (BEAKER) (test ohra=317) 9.9 GM/DL 11.2-15.7 HEMATOCRIT (BEAKER) (test qxtg=852) 30.9 % 34.1-44.9 MEAN CORPUSCULAR VOLUME (BEAKER) (test xbmg=980) 86.3 fL 79.4-94.8 MEAN CORPUSCULAR HEMOGLOBIN (BEAKER) (test wune=421) 27.7 pg 25.6-32.2 MEAN CORPUSCULAR HEMOGLOBIN CONC (BEAKER) (test xsxj=480) 32.0 GM/DL 32.2-35.5 RED CELL DISTRIBUTION WIDTH (BEAKER) (test zjqd=684) 15.5 % 11.7-14.4 PLATELET COUNT (BEAKER) (test mmlw=841) 691 K/CU MM 150-450 MEAN PLATELET VOLUME (BEAKER) (test mryr=001) 8.4 fL 9.4-12.3 NUCLEATED RED BLOOD CELLS (BEAKER) (test kmfv=146) 0 /100 WBC 0-0 NEUTROPHILS RELATIVE PERCENT (BEAKER) (test avul=768) 85 % LYMPHOCYTES RELATIVE PERCENT (BEAKER) (test whrk=035) 7 % MONOCYTES RELATIVE PERCENT (BEAKER) (test enrw=332) 5 % EOSINOPHILS RELATIVE PERCENT (BEAKER) (test vwby=739) 1 % BASOPHILS RELATIVE PERCENT (BEAKER) (test vqdj=028) 0 % NEUTROPHILS ABSOLUTE COUNT (BEAKER) (test ufeg=516) 14.32 K/ L 1.56-6.13 LYMPHOCYTES ABSOLUTE COUNT (BEAKER) (test ifsa=114) 1.18 K/ L 1.18-3.74 MONOCYTES ABSOLUTE COUNT (BEAKER) (test rijf=140) 0.91 K/ L 0.24-0.36 EOSINOPHILS ABSOLUTE COUNT (BEAKER) (test jtan=926) 0.24 K/ L 0.04-0.36 BASOPHILS ABSOLUTE COUNT (BEAKER) (test todw=133) 0.04 K/ L 0.01-0.08 IMMATURE GRANULOCYTES-RELATIVE PERCENT (BEAKER) (test pzyv=9860) 1 % 0-1 CALCIUM, [id number] 05:43:00* Test Item Value Reference Range Comments CALCIUM IONIZED (BEAKER) (test sext=323) 1.01 mmol/L 1.12-1.27 PH, BLOOD (BEAKER) (test aenp=2025) 7.48 TSH/FREE T4 IF [id number] 07:43:00* Test Item Value Reference Range Comments THYROID STIMULATING HORMONE (BEAKER) (test lwgt=315) 0.85 uIU/mL 0.35-4.94 CBC W/PLT COUNT & AUTO [id number] 07:36:00* Test Item Value Reference Range Comments WHITE BLOOD CELL COUNT (BEAKER) (test dewh=999) 17.5 K/ L 3.5-10.5 RED BLOOD CELL COUNT (BEAKER) (test vmjn=857) 3.59 M/ L 3.93-5.22 HEMOGLOBIN (BEAKER) (test fciy=176) 10.0 GM/DL 11.2-15.7 HEMATOCRIT (BEAKER) (test wyjv=179) 32.0 % 34.1-44.9 MEAN CORPUSCULAR VOLUME (BEAKER) (test fakj=043) 89.1 fL 79.4-94.8 MEAN CORPUSCULAR HEMOGLOBIN (BEAKER) (test krdx=230) 27.9 pg 25.6-32.2 MEAN CORPUSCULAR HEMOGLOBIN CONC (BEAKER) (test fpei=368) 31.3 GM/DL 32.2-35.5 RED CELL DISTRIBUTION WIDTH (BEAKER) (test icyw=581) 15.8 % 11.7-14.4 PLATELET COUNT (BEAKER) (test owqd=373) 722 K/CU MM 150-450 MEAN PLATELET VOLUME (BEAKER) (test fbhd=382) 8.6 fL 9.4-12.3 NUCLEATED RED BLOOD CELLS (BEAKER) (test djsn=522) 0 /100 WBC 0-0 NEUTROPHILS RELATIVE PERCENT (BEAKER) (test dwcn=499) 85 % LYMPHOCYTES RELATIVE PERCENT (BEAKER) (test tucp=766) 8 % MONOCYTES RELATIVE PERCENT (BEAKER) (test pcdi=004) 5 % EOSINOPHILS RELATIVE PERCENT (BEAKER) (test xwqu=306) 1 % BASOPHILS RELATIVE PERCENT (BEAKER) (test muac=406) 0 % NEUTROPHILS ABSOLUTE COUNT (BEAKER) (test nkcx=880) 14.93 K/ L 1.56-6.13 LYMPHOCYTES ABSOLUTE COUNT (BEAKER) (test dcsh=170) 1.37 K/ L 1.18-3.74 MONOCYTES ABSOLUTE COUNT (BEAKER) (test kyfg=537) 0.80 K/ L 0.24-0.36 EOSINOPHILS ABSOLUTE COUNT (BEAKER) (test bjnn=460) 0.25 K/ L 0.04-0.36 BASOPHILS ABSOLUTE COUNT (BEAKER) (test vwez=902) 0.04 K/ L 0.01-0.08 IMMATURE GRANULOCYTES-RELATIVE PERCENT (BEAKER) (test cudl=1736) 1 % 0-1 B-TYPE NATRIURETIC FACTOR (BNP)2018-11-04 07:29:00* Test Item Value Reference Range Comments B-TYPE NATRIURETIC PEPTIDE (BEAKER) (test hkgu=369) 147 pg/mL 0-100 [id number] 07:23:00* Test Item Value Reference Range Comments PHOSPHORUS (BEAKER) (test dymi=555) 2.9 mg/dL 2.3-4.7 [id number] 07:23:00* Test Item Value Reference Range Comments MAGNESIUM (BEAKER) (test vxko=649) 2.0 mg/dL 1.6-2.6 COMPREHENSIVE METABOLIC [id number] 07:23:00* Test Item Value Reference Range Comments TOTAL PROTEIN (BEAKER) (test icug=360) 5.8 gm/dL 6.0-8.3 ALBUMIN (BEAKER) (test xuxs=4939) 2.8 g/dL 3.5-5.0 ALKALINE PHOSPHATASE (BEAKER) (test jfii=919) 83 U/L 40-150 BILIRUBIN TOTAL (BEAKER) (test flet=366) 0.3 mg/dL 0.2-1.2 SODIUM (BEAKER) (test hjdg=422) 133 meq/L 136-145 POTASSIUM (BEAKER) (test ffto=612) 3.9 meq/L 3.5-5.1 CHLORIDE (BEAKER) (test ebny=503) 102 meq/L 98-107 CO2 (BEAKER) (test nvki=412) 23 meq/L 22-29 BLOOD UREA NITROGEN (BEAKER) (test aejc=209) 18 mg/dL 7-21 CREATININE (BEAKER) (test hjws=327) 1.68 mg/dL 0.57-1.25 GLUCOSE RANDOM (BEAKER) (test jlyv=011) 93 mg/dL 70-105 CALCIUM (BEAKER) (test nvuh=012) 8.6 mg/dL 8.4-10.2 AST (SGOT) (BEAKER) (test zqck=065) 32 U/L 5-34 ALT (SGPT) (BEAKER) (test apkt=498) 11 U/L 6-55 EGFR (BEAKER) (test vtic=8475) 30 mL/min/1.73 sq m ESTIMATED GFR IS NOT ACCURATE CREATININE CLEARANCE IN PREDICTING GLOMERULAR FILTRATION RATE. ESTIMATED GFR IS NOT APPLICABLE FOR DIALYSIS PATIENTS. CREATINE KINASE (CK)2018-11-04 07:23:00* Test Item Value Reference Range Comments CREATINE KINASE TOTAL (BEAKER) (test nymr=238) 64 U/L 29-200 CALCIUM, [id number] 07:18:00* Test Item Value Reference Range Comments CALCIUM IONIZED (BEAKER) (test qpkf=175) 1.05 mmol/L 1.12-1.27 PH, BLOOD (BEAKER) (test rlvo=1567) 7.37 EOSINOPHIL SMEAR, [id number] 07:12:00* Test Item Value Reference Range Comments EOSINOPHIL SMEAR, URINE (BEAKER) (test tvoj=8202) Rare EOS=less than 5% WBCs seen are EOS No EOS seen URINALYSIS W/ [id number] 23:25:00* Test Item Value Reference Range Comments COLOR (BEAKER) (test yuuu=338) Light Yellow CLARITY (BEAKER) (test vgug=964) Hazy SPECIFIC GRAVITY UA (BEAKER) (test bsaq=066) 1.010 1.001-1.035 PH UA (BEAKER) (test khia=645) 5.5 5.0-8.0 PROTEIN UA (BEAKER) (test dlud=815) 30 mg/dL Negative GLUCOSE UA (BEAKER) (test jvya=675) Negative Negative KETONES UA (BEAKER) (test yddx=579) 10 mg/dL Negative BILIRUBIN UA (BEAKER) (test optk=585) Negative Negative BLOOD UA (BEAKER) (test gsud=879) Moderate Negative NITRITE UA (BEAKER) (test eowb=770) Negative Negative LEUKOCYTE ESTERASE UA (BEAKER) (test poep=796) Large Negative UROBILINOGEN UA (BEAKER) (test opxm=146) 2.0 mg/dL 0.2-1.0 RBC UA (BEAKER) (test cptl=249) 134 /HPF WBC UA (BEAKER) (test veqo=041) 13 /HPF BACTERIA (BEAKER) (test gxad=633) Rare MUCUS (BEAKER) (test okom=8344) Rare HYALINE CASTS (BEAKER) (test yjhy=789) 6 /LPF GRANULAR CASTS (BEAKER) (test swva=031) 27 /LPF AMORPHOUS CRYSTALS (BEAKER) (test iucc=5997) Many SOURCE(BEAKER) (test ucux=4438) SODIUM, RANDOM [id number] 23:24:00* Test Item Value Reference Range Comments SODIUM URINE (BEAKER) (test eqhj=872) < meq/L Reference Range: No NormalsCREATININE, RANDOM [id number] 23:22:00* Test Item Value Reference Range Comments CREATININE URINE (BEAKER) (test qvjs=269) 69.0 mg/dL Reference Range: No NormalsPROTEIN, RANDOM [id number] 23:22:00* Test Item Value Reference Range Comments PROTEIN, URINE (BEAKER) (test tqjx=3530) 31 mg/dL 0-14 RAD, CHEST, 1 VIEW, NON [id number] 20:03:00Reason for exam:->edemaShould this be performed at the bedside?->YesFINAL REPORT Portable chest. CLINICAL HISTORY: Edema. Comparison study: October 28, 2018. FINDINGS: The cardiac size is unremarkable. Some linear opacity seen in the right perihilar region suggestive of atelectasis or consolidation. Mild elevation of the right hemidiaphragm is seen. No pleural effusion or pneumothorax is seen. Degenerative changes are noted. IMPRESSION: Right pe rihilar opacity, atelectasis versus consolidation. In the right clinical setting , a superimposed infection would be difficult to exclude. Clinical correlation a nd short term imaging follow-up could be made to exclude other etiologies. Stephanie cohn: Elie Hampton MDReport Verified Date/Time: 11/03/2018 20:03:46 Reading Loc ation: [facility] B1 C013W Consult Reading Room U/S, RENAL, [id number] 15:05:00 Reason for exam:->evaluate for retentionFINAL REPORT Renal ultrasound Clinical History: Urinary retention Discussion:Sonographic evaluation of the kidneys is performed. The right kidney is normal in size measuring 10.4 x 6.0 x 5.9 cm with cortical thickness of 1.9 cm. Cortical echogenicity is within normal limits. There is mild fullness of the renal collecting system without evidence for true intrarenal hydronephrosis. There is no evidence for solid renal mass or shadowing calculi. The main renal artery and vein are patent. The left kidney is normal in size measuring 9.7 x 5.9 x 5.2 cm with cortical thickness of 1.9 cm. Cortical echogenicity is within normal limits. There is no evidence for solid renal mass, hydronephrosis, or shadowing calculi.. The main renal artery and vein are patent. The urinary bladder is collapsed around a Tapia catheter. Impression: Mild fullness of the right renal collecting system without evidence for true hydronephrosis. Otherwise, u nremarkable renal ultrasound examination. Signed: Arjun Sanchez MDReport Verifie d Date/Time: 11/03/2018 15:05:47 Reading Location: [address] Radiology Read ing Room C METABOLIC [id number] 07:04:00* Test Item Value Reference Range Comments SODIUM (BEAKER) (test wkwf=332) 134 meq/L 136-145 POTASSIUM (BEAKER) (test dvpi=656) 4.3 meq/L 3.5-5.1 CHLORIDE (BEAKER) (test vyay=818) 102 meq/L 98-107 CO2 (BEAKER) (test guxe=326) 21 meq/L 22-29 BLOOD UREA NITROGEN (BEAKER) (test lgxm=995) 18 mg/dL 7-21 CREATININE (BEAKER) (test kzmw=233) 1.99 mg/dL 0.57-1.25 GLUCOSE RANDOM (BEAKER) (test jmiu=114) 94 mg/dL 70-105 CALCIUM (BEAKER) (test yhxa=078) 8.9 mg/dL 8.4-10.2 EGFR (BEAKER) (test awmb=4828) 25 mL/min/1.73 sq m ESTIMATED GFR IS NOT ACCURATE CREATININE CLEARANCE IN PREDICTING GLOMERULAR FILTRATION RATE. ESTIMATED GFR IS NOT APPLICABLE FOR DIALYSIS PATIENTS. [id number] 07:03:00* Test Item Value Reference Range Comments PHOSPHORUS (BEAKER) (test ugee=540) 5.8 mg/dL 2.3-4.7 [id number] 07:03:00* Test Item Value Reference Range Comments MAGNESIUM (BEAKER) (test oedc=423) 1.9 mg/dL 1.6-2.6 CBC W/PLT COUNT & AUTO [id number] 06:36:00* Test Item Value Reference Range Comments WHITE BLOOD CELL COUNT (BEAKER) (test qgfj=672) 22.7 K/ L 3.5-10.5 RED BLOOD CELL COUNT (BEAKER) (test mqcw=505) 3.62 M/ L 3.93-5.22 HEMOGLOBIN (BEAKER) (test gsal=933) 10.2 GM/DL 11.2-15.7 HEMATOCRIT (BEAKER) (test zlnz=015) 33.8 % 34.1-44.9 MEAN CORPUSCULAR VOLUME (BEAKER) (test xtnq=959) 93.4 fL 79.4-94.8 MEAN CORPUSCULAR HEMOGLOBIN (BEAKER) (test onkx=596) 28.2 pg 25.6-32.2 MEAN CORPUSCULAR HEMOGLOBIN CONC (BEAKER) (test vzln=447) 30.2 GM/DL 32.2-35.5 RED CELL DISTRIBUTION WIDTH (BEAKER) (test vieq=254) 15.8 % 11.7-14.4 PLATELET COUNT (BEAKER) (test lcjb=467) 816 K/CU MM 150-450 MEAN PLATELET VOLUME (BEAKER) (test ekbu=714) 8.4 fL 9.4-12.3 NUCLEATED RED BLOOD CELLS (BEAKER) (test qvlp=216) 0 /100 WBC 0-0 NEUTROPHILS RELATIVE PERCENT (BEAKER) (test xfgq=122) 85 % LYMPHOCYTES RELATIVE PERCENT (BEAKER) (test aaik=846) 8 % MONOCYTES RELATIVE PERCENT (BEAKER) (test pftq=067) 5 % EOSINOPHILS RELATIVE PERCENT (BEAKER) (test ztov=713) 1 % BASOPHILS RELATIVE PERCENT (BEAKER) (test zfkb=385) 0 % NEUTROPHILS ABSOLUTE COUNT (BEAKER) (test jwll=678) 19.36 K/ L 1.56-6.13 LYMPHOCYTES ABSOLUTE COUNT (BEAKER) (test lmfo=796) 1.72 K/ L 1.18-3.74 MONOCYTES ABSOLUTE COUNT (BEAKER) (test cyri=367) 1.16 K/ L 0.24-0.36 EOSINOPHILS ABSOLUTE COUNT (BEAKER) (test rpbk=917) 0.11 K/ L 0.04-0.36 BASOPHILS ABSOLUTE COUNT (BEAKER) (test yupe=564) 0.06 K/ L 0.01-0.08 IMMATURE GRANULOCYTES-RELATIVE PERCENT (BEAKER) (test lsda=3787) 1 % 0-1 CALCIUM, [id number] 06:32:00* Test Item Value Reference Range Comments CALCIUM IONIZED (BEAKER) (test bojj=442) 1.02 mmol/L 1.12-1.27 PH, BLOOD (BEAKER) (test lhbq=3919) 7.39 VANCOMYCIN LEVEL, [id number] 02:55:00* Test Item Value Reference Range Comments VANCOMYCIN TROUGH (BEAKER) (test sizg=185) 36.2 ug/mL 10.0-20.0 BASIC METABOLIC [id number] 23:21:00* Test Item Value Reference Range Comments SODIUM (BEAKER) (test ysed=272) 135 meq/L 136-145 POTASSIUM (BEAKER) (test wkkx=812) 4.4 meq/L 3.5-5.1 CHLORIDE (BEAKER) (test adzr=583) 103 meq/L 98-107 CO2 (BEAKER) (test cxkj=169) 21 meq/L 22-29 BLOOD UREA NITROGEN (BEAKER) (test isce=457) 17 mg/dL 7-21 CREATININE (BEAKER) (test ohzf=003) 1.96 mg/dL 0.57-1.25 GLUCOSE RANDOM (BEAKER) (test ixnl=149) 111 mg/dL 70-105 CALCIUM (BEAKER) (test hjgp=298) 8.4 mg/dL 8.4-10.2 EGFR (BEAKER) (test nybk=6850) 25 mL/min/1.73 sq m ESTIMATED GFR IS NOT ACCURATE CREATININE CLEARANCE IN PREDICTING GLOMERULAR FILTRATION RATE. ESTIMATED GFR IS NOT APPLICABLE FOR DIALYSIS PATIENTS. CREATININE, RANDOM [id number] 22:35:00* Test Item Value Reference Range Comments CREATININE URINE (BEAKER) (test ffkb=896) 95.9 mg/dL Reference Range: No NormalsPOTASSIUM, RANDOM [id number] 22:35:00* Test Item Value Reference Range Comments POTASSIUM URINE (BEAKER) (test onar=909) 37.9 meq/L Reference Range: No NormalsSODIUM, RANDOM [id number] 22:35:00* Test Item Value Reference Range Comments SODIUM URINE (BEAKER) (test wivx=088) 62 meq/L Reference Range: No NormalsVANCOMYCIN LEVEL, [id number] 16:11:00* Test Item Value Reference Range Comments VANCOMYCIN TROUGH (BEAKER) (test qnta=706) 40.3 ug/mL 10.0-20.0 Please hold dose if level >20BLOOD [id number] 14:01:00* Test Item Value Reference Range Comments CULTURE (BEAKER) (test dvrh=7003) No growth in 5 days SPECIFIC GRAVITY, [id number] 13:30:00* Test Item Value Reference Range Comments SPECIFIC GRAVITY UA (BEAKER) (test njnw=289) 1.016 1.001-1.035 BASIC METABOLIC [id number] 11:23:00* Test Item Value Reference Range Comments SODIUM (BEAKER) (test riei=364) 135 meq/L 136-145 POTASSIUM (BEAKER) (test fktq=478) 4.4 meq/L 3.5-5.1 CHLORIDE (BEAKER) (test cnvt=043) 104 meq/L 98-107 CO2 (BEAKER) (test gera=269) 20 meq/L 22-29 BLOOD UREA NITROGEN (BEAKER) (test eeyd=409) 13 mg/dL 7-21 CREATININE (BEAKER) (test vbxy=752) 1.45 mg/dL 0.57-1.25 GLUCOSE RANDOM (BEAKER) (test odin=476) 119 mg/dL 70-105 CALCIUM (BEAKER) (test evps=380) 8.1 mg/dL 8.4-10.2 EGFR (BEAKER) (test koxp=0377) 36 mL/min/1.73 sq m ESTIMATED GFR IS NOT ACCURATE CREATININE CLEARANCE IN PREDICTING GLOMERULAR FILTRATION RATE. ESTIMATED GFR IS NOT APPLICABLE FOR DIALYSIS PATIENTS. [id number] 09:58:00* Test Item Value Reference Range Comments PHOSPHORUS (BEAKER) (test juvx=457) 6.1 mg/dL 2.3-4.7 [id number] 09:58:00* Test Item Value Reference Range Comments MAGNESIUM (BEAKER) (test yxmh=055) 1.8 mg/dL 1.6-2.6 CBC W/PLT COUNT & AUTO [id number] 08:48:00* Test Item Value Reference Range Comments WHITE BLOOD CELL COUNT (BEAKER) (test hojc=345) 28.5 K/ L 3.5-10.5 RED BLOOD CELL COUNT (BEAKER) (test tqun=003) 4.02 M/ L 3.93-5.22 HEMOGLOBIN (BEAKER) (test ryvv=698) 11.2 GM/DL 11.2-15.7 HEMATOCRIT (BEAKER) (test zwff=707) 36.7 % 34.1-44.9 MEAN CORPUSCULAR VOLUME (BEAKER) (test mlfj=845) 91.3 fL 79.4-94.8 MEAN CORPUSCULAR HEMOGLOBIN (BEAKER) (test qjdc=528) 27.9 pg 25.6-32.2 MEAN CORPUSCULAR HEMOGLOBIN CONC (BEAKER) (test mhek=579) 30.5 GM/DL 32.2-35.5 RED CELL DISTRIBUTION WIDTH (BEAKER) (test obxe=437) 15.2 % 11.7-14.4 PLATELET COUNT (BEAKER) (test gwvc=285) 987 K/CU MM 150-450 MEAN PLATELET VOLUME (BEAKER) (test mqjz=515) 8.3 fL 9.4-12.3 NUCLEATED RED BLOOD CELLS (BEAKER) (test khon=276) 0 /100 WBC 0-0 (CELLAVISION MANUAL DIFF)2018-11-02 08:48:00* Test Item Value Reference Range Comments NEUTROPHILS - REL (CELLAVISION)(BEAKER) (test zmmb=9976) 93 % LYMPHOCYTES - REL (CELLAVISION)(BEAKER) (test gojj=9548) 2 % MONOCYTES - REL (CELLAVISION)(BEAKER) (test hsea=7725) 1 % BANDS - REL (CELLAVISION)(BEAKER) (test ahen=7214) 4 % 0-10 NEUTROPHILS - ABS (CELLAVISION)(BEAKER) (test xssw=6647) 26.51 K/ul 1.56-6.13 LYMPHOCYTES - ABS (CELLAVISION)(BEAKER) (test gsbf=6792) 0.57 K/ul 1.18-3.74 MONOCYTES - ABS (CELLAVISION)(BEAKER) (test pnkk=5382) 0.29 K/uL 0.24-0.36 BANDS - ABS (CELLAVISION)(BEAKER) (test ppff=7362) 1.14 K/uL 0.00-0.80 TOTAL COUNTED (BEAKER) (test nunx=0239) 100 RBC MORPHOLOGY (BEAKER) (test wdbx=217) Normal WBC MORPHOLOGY (BEAKER) (test wogk=852) Normal PLT MORPHOLOGY (BEAKER) (test ujxl=647) Normal POLYCHROMATOPHILLIC RBCS(BEAKER) (test daat=584) 2+ moderate ANISOCYTOSIS (BEAKER) (test wsnm=922) 1+ few MICROCYTES (BEAKER) (test uuzh=161) 1+ few POIKILOCYTES (BEAKER) (test qwrd=127) 3+ many CAROLA CELLS (BEAKER) (test hlyz=762) 1+ few ARTIFACT (CELLAVISION)(BEAKER) (test xnyh=4534) Present PLATELET CONCENTRATION (CELLAVISION)(BEAKER) (test mxcf=6224) Increased Received comment: User comments: Slide comments: SPIN/CONCENTRATION CHARGE 2018-11-02 06:48:00* Test Item Value Reference Range Comments CONCENTRATION CHARGED (BEAKER) (test qxdy=5443) Done VITAMIN D, [id number] 09:07:00* Test Item Value Reference Range Comments VITAMIN D 25-OH (BEAKER) (test klcg=9675) 31.9 ng/mL 6.6-49.9 Effective 03/04/2017: Reference Range ChangeNew: 6.6-49.9 ng/mL Previous: 13.0 -47.8 ng/mLRecommended Vitamin D Target Range: 30.0-40.0 ng/mLVANCOMYCIN LEVEL, [id number] 00:51:00* Test Item Value Reference Range Comments VANCOMYCIN TROUGH (BEAKER) (test ycbc=455) 16.7 ug/mL 10.0-20.0 CBC (HEMOGRAM ONLY)2018-10-31 05:38:00* Test Item Value Reference Range Comments WHITE BLOOD CELL COUNT (BEAKER) (test pvwd=561) 16.2 K/ L 3.5-10.5 RED BLOOD CELL COUNT (BEAKER) (test nimm=857) 4.04 M/ L 3.93-5.22 HEMOGLOBIN (BEAKER) (test pjge=967) 11.3 GM/DL 11.2-15.7 HEMATOCRIT (BEAKER) (test aoit=451) 37.3 % 34.1-44.9 MEAN CORPUSCULAR VOLUME (BEAKER) (test bebr=410) 92.3 fL 79.4-94.8 MEAN CORPUSCULAR HEMOGLOBIN (BEAKER) (test nlqg=079) 28.0 pg 25.6-32.2 MEAN CORPUSCULAR HEMOGLOBIN CONC (BEAKER) (test ybqq=887) 30.3 GM/DL 32.2-35.5 RED CELL DISTRIBUTION WIDTH (BEAKER) (test dido=793) 14.9 % 11.7-14.4 PLATELET COUNT (BEAKER) (test rtmk=438) 690 K/CU MM 150-450 MEAN PLATELET VOLUME (BEAKER) (test dbsv=771) 8.2 fL 9.4-12.3 NUCLEATED RED BLOOD CELLS (BEAKER) (test jfyn=529) 0 /100 WBC 0-0 BASIC METABOLIC [id number] 05:35:00* Test Item Value Reference Range Comments SODIUM (BEAKER) (test gmel=283) 136 meq/L 136-145 POTASSIUM (BEAKER) (test tvby=306) 4.1 meq/L 3.5-5.1 CHLORIDE (BEAKER) (test pnmz=936) 106 meq/L 98-107 CO2 (BEAKER) (test hvkt=993) 21 meq/L 22-29 BLOOD UREA NITROGEN (BEAKER) (test mqrc=803) 10 mg/dL 7-21 CREATININE (BEAKER) (test oavx=812) 0.53 mg/dL 0.57-1.25 GLUCOSE RANDOM (BEAKER) (test lywb=343) 73 mg/dL 70-105 CALCIUM (BEAKER) (test yutp=729) 8.3 mg/dL 8.4-10.2 EGFR (BEAKER) (test lezg=6969) 115 mL/min/1.73 sq m ESTIMATED GFR IS NOT ACCURATE CREATININE CLEARANCE IN PREDICTING GLOMERULAR FILTRATION RATE. ESTIMATED GFR IS NOT APPLICABLE FOR DIALYSIS PATIENTS. VANCOMYCIN LEVEL, [id number] 01:14:00* Test Item Value Reference Range Comments VANCOMYCIN TROUGH (BEAKER) (test pomm=307) 11.8 ug/mL 10.0-20.0 BLOOD CULTURE IDENTIFICATION [id number] 00:30:00* Test Item Value Reference Range Comments LISTERIA MONOCYTOGENES (test qkit=4745697) Not detected Not detected STAPHYLOCOCCUS (test uhgh=8621254) Not detected Not detected STAPHYLOCOCCUS AUREUS (test ehzm=3263173) Not detected Not detected STREPTOCOCCUS (test jitl=0566557) Not detected Not detected STREPTOCOCCUS AGALACTIAE (GROUP B) (test nwwq=3402057) Not detected Not detected STREPTOCOCCUS PNEUMONIAE (test eqhd=2766915) Not detected Not detected STREPTOCOCCUS PYOGENES (GROUP A) (test pdmg=6005327) Not detected Not detected ACINETOBACTER BAUMANNII (test ymsn=6494633) Not detected Not detected HAEMOPHILUS INFLUENZAE (test tzyq=4901321) Not detected Not detected NEISSERIA MENINGITIDIS (test gpde=2038925) Not detected Not detected ENTEROBACTERIACEAE (test xbfj=9655102) Not detected Not detected ENTEROBACTER CLOACOE COMPLEX (test nyjf=0513795) Not detected Not detected KLEBSIELLA OXYTOCA (test yalw=7615559) Not detected Not detected KLEBSIELLA PNEUMONIAE (test jfcx=5693) Not detected Not detected PROTEUS (test nstn=2030874) Not detected Not detected SERRATIA MARCESCENS (test nici=8065706) Not detected Not detected CORAL ALBICANS (test jwsv=5722145) Not detected Not detected CORAL GLABRATA (test mbwh=8304112) Not detected Not detected CORAL KRUSEI (test acti=3907075) Not detected Not detected CORAL PARAPSILOSIS (test fjki=8694345) Not detected Not detected CORAL TROPICALIS (test qdrv=2580428) Not detected Not detected ESCHERICHIA COLI (test ssih=8120929) Not detected Not detected METHICILLIN-RESISTANCE GENE (test xfni=1439974) Not detected VANCOMYCIN-RESISTANCE GENE (test ggen=3726846) Not detected CARBAPENEM-RESISTANCE GENE (test zznw=0315710) Not detected Please refer to culture results for ID and susceptibilities.. ENTEROCOCCUS-BEAKER (test ggef=4861380) Not detected Not detected PSEUDOMONAS AERUGINOSA-BEAKER (test eoui=9691903) Not detected Not detected Other bacteria and resistance markers not targeted by this PCR panel cannot be e xcluded; therefore clinical correlation and follow up of serology, culture resul ts, and other molecular studies is required. The results are not intended to be used as the sole means for clinical diagnosis or patient management decisions. T his sample was tested at the [facility] using the [employer] Blood Culture ID Panel. It is FDA cleared and has been verified and approved by the [facility] for clinical use. Thi s laboratory is CLIA-certified and [employer] ([employer])-accred ited to perform high complexity testing.POCT-GLUCOSE [id number] 17:21:00* Test Item Value Reference Range Comments POC-GLUCOSE METER (BEAKER) (test wbsl=0435) 78 mg/dL 70-110 TESTED AT [facility] [address] [facility] [address] POCT-GLUCOSE [id number] 17:21:00* Test Item Value Reference Range Comments POC-GLUCOSE METER (BEAKER) (test heoi=0100) 100 mg/dL 70-110 TESTED AT [address] [address] RAD, ABDOMEN/KUB, 1 VIEW [id number] 08:25:00Reason for exam:->check position of NG tubeFINAL REPORT CLINICAL HISTORY: check position of NG tube TECHNIQUE: Supine abdomen COMPARISON: 10/27/2018 IMPRESSION: The tip of the nasogastric tube is in the upper stomach and should be advanced. Multiple distended loops of small bowel are again seen, perhaps slightly increased in prominence. Air is seen in the colon. A partial small bowel obstruction or ileus cannot be excluded. Free air and air-fluid levels cannot be excluded on the supine view. If clinically warranted, abdominal CT should be performed for further evaluation. Signed: Douglas Layton MDReport Verified Date/Time: 10/30/2018 08:25:38 Reading Location: [facility] C013V Neuro Reading Room C METABOLIC [id number] 07:10:00* Test Item Value Reference Range Comments SODIUM (BEAKER) (test anlg=453) 138 meq/L 136-145 POTASSIUM (BEAKER) (test ujkl=024) 4.5 meq/L 3.5-5.1 CHLORIDE (BEAKER) (test zuqo=898) 105 meq/L 98-107 CO2 (BEAKER) (test zqld=499) 24 meq/L 22-29 BLOOD UREA NITROGEN (BEAKER) (test dhli=564) 15 mg/dL 7-21 CREATININE (BEAKER) (test ythd=780) 0.58 mg/dL 0.57-1.25 GLUCOSE RANDOM (BEAKER) (test gozm=561) 72 mg/dL 70-105 CALCIUM (BEAKER) (test jlzd=495) 8.7 mg/dL 8.4-10.2 EGFR (BEAKER) (test ltmd=4922) 103 mL/min/1.73 sq m ESTIMATED GFR IS NOT ACCURATE CREATININE CLEARANCE IN PREDICTING GLOMERULAR FILTRATION RATE. ESTIMATED GFR IS NOT APPLICABLE FOR DIALYSIS PATIENTS. CBC (HEMOGRAM ONLY)2018-10-30 06:37:00* Test Item Value Reference Range Comments WHITE BLOOD CELL COUNT (BEAKER) (test yvnz=521) 20.5 K/ L 3.5-10.5 RED BLOOD CELL COUNT (BEAKER) (test ritm=385) 3.95 M/ L 3.93-5.22 HEMOGLOBIN (BEAKER) (test tcew=036) 11.1 GM/DL 11.2-15.7 HEMATOCRIT (BEAKER) (test vaqp=544) 35.5 % 34.1-44.9 MEAN CORPUSCULAR VOLUME (BEAKER) (test wfiy=953) 89.9 fL 79.4-94.8 MEAN CORPUSCULAR HEMOGLOBIN (BEAKER) (test yxns=018) 28.1 pg 25.6-32.2 MEAN CORPUSCULAR HEMOGLOBIN CONC (BEAKER) (test pafo=432) 31.3 GM/DL 32.2-35.5 RED CELL DISTRIBUTION WIDTH (BEAKER) (test cqpa=260) 14.9 % 11.7-14.4 PLATELET COUNT (BEAKER) (test odnh=337) 757 K/CU MM 150-450 MEAN PLATELET VOLUME (BEAKER) (test gyhx=107) 8.2 fL 9.4-12.3 NUCLEATED RED BLOOD CELLS (BEAKER) (test ujlp=411) 0 /100 WBC 0-0 VANCOMYCIN LEVEL, [id number] 01:17:00* Test Item Value Reference Range Comments VANCOMYCIN TROUGH (BEAKER) (test bhms=353) 3.5 ug/mL 10.0-20.0 CBC W/PLT COUNT & AUTO [id number] 15:11:00* Test Item Value Reference Range Comments WHITE BLOOD CELL COUNT (BEAKER) (test xpjm=447) 15.9 K/ L 3.5-10.5 RED BLOOD CELL COUNT (BEAKER) (test mkuo=601) 3.82 M/ L 3.93-5.22 HEMOGLOBIN (BEAKER) (test lppr=324) 10.7 GM/DL 11.2-15.7 HEMATOCRIT (BEAKER) (test expg=149) 34.8 % 34.1-44.9 MEAN CORPUSCULAR VOLUME (BEAKER) (test auci=854) 91.1 fL 79.4-94.8 MEAN CORPUSCULAR HEMOGLOBIN (BEAKER) (test qogc=552) 28.0 pg 25.6-32.2 MEAN CORPUSCULAR HEMOGLOBIN CONC (BEAKER) (test purb=873) 30.7 GM/DL 32.2-35.5 RED CELL DISTRIBUTION WIDTH (BEAKER) (test jzno=192) 15.0 % 11.7-14.4 PLATELET COUNT (BEAKER) (test rvoh=719) 655 K/CU MM 150-450 MEAN PLATELET VOLUME (BEAKER) (test xvdv=941) 8.3 fL 9.4-12.3 NUCLEATED RED BLOOD CELLS (BEAKER) (test fnvs=667) 0 /100 WBC 0-0 (CELLAVISION MANUAL DIFF)2018-10-29 15:11:00* Test Item Value Reference Range Comments NEUTROPHILS - REL (CELLAVISION)(BEAKER) (test pwqx=5831) 83 % LYMPHOCYTES - REL (CELLAVISION)(BEAKER) (test sabr=7855) 7 % MONOCYTES - REL (CELLAVISION)(BEAKER) (test vzsc=9059) 8 % BANDS - REL (CELLAVISION)(BEAKER) (test ruqm=3364) 2 % 0-10 NEUTROPHILS - ABS (CELLAVISION)(BEAKER) (test kyhu=6921) 13.20 K/ul 1.56-6.13 LYMPHOCYTES - ABS (CELLAVISION)(BEAKER) (test uwsh=4072) 1.11 K/ul 1.18-3.74 MONOCYTES - ABS (CELLAVISION)(BEAKER) (test xash=5912) 1.27 K/uL 0.24-0.36 BANDS - ABS (CELLAVISION)(BEAKER) (test skwk=7570) 0.32 K/uL 0.00-0.80 TOTAL COUNTED (BEAKER) (test mnfd=4934) 100 WBC MORPHOLOGY (BEAKER) (test emvf=964) Normal PLT MORPHOLOGY (BEAKER) (test wzyt=613) Normal POLYCHROMATOPHILLIC RBCS(BEAKER) (test reeh=256) 1+ few ANISOCYTOSIS (BEAKER) (test kpon=387) 1+ few MICROCYTES (BEAKER) (test tbfx=612) 1+ few PLATELET CONCENTRATION (CELLAVISION)(BEAKER) (test ozui=3123) Increased Received comment: User comments: Slide comments: TISSUE [id number] 12:30:00 Surgical Pathology Report Case: [id number] Authorizing Provider: Dionne Zimmerman MD Collected: 10/27/2018 0303 Ordering Location: [address] Received: 10/28/2018 4919 Ser vice Patholog ist: Kandis Bergman MD Specimen: Mass, biopsy sigmoid mass A. COLON, SIGMOID MASS, BIOPSY: - COLONIC MUCOSA WI TH NON-SPECIFIC ACTIVE CHRONIC INFLAMMATION AND ULCERATION - NEGATIVE FOR MALJOE LIMA (SEE COMMENT) Signing Pathologist Direct Phone Line: [phone] ectronically signed by Kandis Bergman MD on 10/29/2018 at 12:30 PMPrelimina ry result electronically signed by Kandis Bergman MD on 10/28/2018 at 3:19 PMThe clinical picture of large size of the tumor on endoscopy, and positive re troperitoneal lymph node ([id number]) are highly worrisome for malignancy. However , in this sampling there is no evidence of tumor and it may be related to superf icial sampling. Immunostain for PAX-8 is negative further supporting absence of malignancy. Deeper levels are examined. Re-biopsy may be considered if clinicall y feasible.[id number] and postop diagnosis: abnormal findings on diagnostic i maging of digestive systemBiopsy sigmoid massReceived in formalin labeled with t he patient's name, accession number and "mass" are three irregular ace soft tiss ue fragments ranging 0.1-0.4 cm which are submitted in toto in A1. CG/pl Perfor med.The interpretation of this case included the use of immunohistochemistry or special stains.Control Slides Examined: In-house known positive controls were e valuated along with the test tissue. These control slides run alongside of the patients sample show appropriate staining. Internal positive and negative contro ls when available are evaluated Immunohistochemistry technical testing was perfo rmed at [facility], Pathology Laboratory where it was prasanth hernandez and its performance characteristics were determined. It has not been clear ed or approved by the U.S. Food and Drug Administration. The FDA has determined that such clearance or approval is not necessary. The test is used for clinical purposes. It should not be regarded as investigational or for research. This lab oratory is certified under the Clinical Laboratory Improvement Amendments of 198 8 (CLIA-88) as qualified to perform high complexity clinical laboratory testing. COMPREHENSIVE METABOLIC [id number] 07:48:00* Test Item Value Reference Range Comments TOTAL PROTEIN (BEAKER) (test tiak=687) 6.2 gm/dL 6.0-8.3 ALBUMIN (BEAKER) (test bedl=9717) 2.9 g/dL 3.5-5.0 ALKALINE PHOSPHATASE (BEAKER) (test vgju=946) 81 U/L 40-150 BILIRUBIN TOTAL (BEAKER) (test ujrv=734) 0.3 mg/dL 0.2-1.2 SODIUM (BEAKER) (test nodq=294) 140 meq/L 136-145 POTASSIUM (BEAKER) (test qjra=059) 4.1 meq/L 3.5-5.1 CHLORIDE (BEAKER) (test erbr=661) 105 meq/L 98-107 CO2 (BEAKER) (test yeor=779) 25 meq/L 22-29 BLOOD UREA NITROGEN (BEAKER) (test igfj=016) 19 mg/dL 7-21 CREATININE (BEAKER) (test fvdw=233) 0.71 mg/dL 0.57-1.25 GLUCOSE RANDOM (BEAKER) (test uinl=011) 90 mg/dL 70-105 CALCIUM (BEAKER) (test tfpn=179) 8.5 mg/dL 8.4-10.2 AST (SGOT) (BEAKER) (test pmsa=448) 16 U/L 5-34 ALT (SGPT) (BEAKER) (test nkof=119) 13 U/L 6-55 EGFR (BEAKER) (test imvm=2828) 82 mL/min/1.73 sq m ESTIMATED GFR IS NOT ACCURATE CREATININE CLEARANCE IN PREDICTING GLOMERULAR FILTRATION RATE. ESTIMATED GFR IS NOT APPLICABLE FOR DIALYSIS PATIENTS. RAD, CHEST, 1 VIEW, NON [id number] 13:25:00Reason for exam:->increase oxygen requirementsShould this be performed at the bedside?->YesFINAL REPORT Chest x-ray Clinical History: increase oxygen requirements Comparison: October 21, 2018 Views: One AP lordotic this is a suboptimal inspiratory effort Chest x-ray:The cardiac and mediastinal silhouettes are within normal limits. There is no evidence of a pneumothorax. There is no evidence of a pleural effusion. There is no evidence of overt cardiac failure. The visible regional skeleton demonstrates degenerative change with multiple osteophytes in the thoracic spine. There is no evidence of a focal parenchymal opacity. The nasogastric tube traverses the esophagus. Linear atelectasis is visualized in the left lower lung zone Impression: Interval placement of a nasogastric tube traversing the esophagus its distal tip is in the stomach. Interval development of subsegmental atelectasis in the left lower lobe. Signed: Mary Ellen Burkett port Verified Date/Time: 10/28/2018 13:25:41 Reading Location: [facility] C013[facility] Reading Room Electronically signed by: MARY ELLEN BURKETT M.D. on 9 01:25 PM LACTIC ACID, [id number] 12:44:00* Test Item Value Reference Range Comments LACTATE BLOOD VENOUS (2) (BEAKER) (test mmlb=5358) 1.0 mmol/L 0.5-2.2 COMPREHENSIVE METABOLIC [id number] 07:14:00* Test Item Value Reference Range Comments TOTAL PROTEIN (BEAKER) (test jozp=179) 6.6 gm/dL 6.0-8.3 ALBUMIN (BEAKER) (test lmgy=9073) 3.1 g/dL 3.5-5.0 ALKALINE PHOSPHATASE (BEAKER) (test uyfi=205) 94 U/L 40-150 BILIRUBIN TOTAL (BEAKER) (test oemx=083) 0.4 mg/dL 0.2-1.2 SODIUM (BEAKER) (test mjsp=228) 140 meq/L 136-145 POTASSIUM (BEAKER) (test rbfo=377) 4.8 meq/L 3.5-5.1 CHLORIDE (BEAKER) (test tojw=317) 102 meq/L 98-107 CO2 (BEAKER) (test npnz=447) 29 meq/L 22-29 BLOOD UREA NITROGEN (BEAKER) (test czip=172) 15 mg/dL 7-21 CREATININE (BEAKER) (test jkka=578) 0.72 mg/dL 0.57-1.25 GLUCOSE RANDOM (BEAKER) (test eoea=433) 122 mg/dL 70-105 CALCIUM (BEAKER) (test qedv=571) 9.2 mg/dL 8.4-10.2 AST (SGOT) (BEAKER) (test dowy=449) 15 U/L 5-34 ALT (SGPT) (BEAKER) (test swar=809) 15 U/L 6-55 EGFR (BEAKER) (test inpt=5291) 81 mL/min/1.73 sq m ESTIMATED GFR IS NOT ACCURATE CREATININE CLEARANCE IN PREDICTING GLOMERULAR FILTRATION RATE. ESTIMATED GFR IS NOT APPLICABLE FOR DIALYSIS PATIENTS. CBC (HEMOGRAM ONLY)2018-10-28 06:43:00* Test Item Value Reference Range Comments WHITE BLOOD CELL COUNT (BEAKER) (test crry=467) 18.6 K/ L 3.5-10.5 RED BLOOD CELL COUNT (BEAKER) (test byxt=530) 4.27 M/ L 3.93-5.22 HEMOGLOBIN (BEAKER) (test rsod=411) 11.9 GM/DL 11.2-15.7 HEMATOCRIT (BEAKER) (test tlyn=638) 38.0 % 34.1-44.9 MEAN CORPUSCULAR VOLUME (BEAKER) (test qvxt=522) 89.0 fL 79.4-94.8 MEAN CORPUSCULAR HEMOGLOBIN (BEAKER) (test wcpf=891) 27.9 pg 25.6-32.2 MEAN CORPUSCULAR HEMOGLOBIN CONC (BEAKER) (test cfcx=903) 31.3 GM/DL 32.2-35.5 RED CELL DISTRIBUTION WIDTH (BEAKER) (test marp=613) 15.2 % 11.7-14.4 PLATELET COUNT (BEAKER) (test etla=924) 696 K/CU MM 150-450 MEAN PLATELET VOLUME (BEAKER) (test efxz=452) 8.5 fL 9.4-12.3 NUCLEATED RED BLOOD CELLS (BEAKER) (test drlo=964) 0 /100 WBC 0-0 [id number] 11:26:00* Test Item Value Reference Range Comments PHOSPHORUS (BEAKER) (test ilgc=492) 3.8 mg/dL 2.3-4.7 [id number] 11:26:00* Test Item Value Reference Range Comments MAGNESIUM (BEAKER) (test rryk=862) 2.2 mg/dL 1.6-2.6 BASIC METABOLIC [id number] 11:26:00* Test Item Value Reference Range Comments SODIUM (BEAKER) (test qpbn=018) 135 meq/L 136-145 POTASSIUM (BEAKER) (test leav=657) 4.4 meq/L 3.5-5.1 CHLORIDE (BEAKER) (test twjb=237) 103 meq/L 98-107 CO2 (BEAKER) (test fuoz=045) 23 meq/L 22-29 BLOOD UREA NITROGEN (BEAKER) (test fujp=359) 8 mg/dL 7-21 CREATININE (BEAKER) (test mdfu=268) 0.72 mg/dL 0.57-1.25 GLUCOSE RANDOM (BEAKER) (test kzkq=427) 118 mg/dL 70-105 CALCIUM (BEAKER) (test ihqo=034) 9.0 mg/dL 8.4-10.2 EGFR (BEAKER) (test blwk=2847) 81 mL/min/1.73 sq m ESTIMATED GFR IS NOT ACCURATE CREATININE CLEARANCE IN PREDICTING GLOMERULAR FILTRATION RATE. ESTIMATED GFR IS NOT APPLICABLE FOR DIALYSIS PATIENTS. RAD, ABDOMEN/KUB, 1 VIEW [id number] 10:09:00Reason for exam:->ng tube insertionShould this be performed at the bedside?->YesFINAL REPORT INDICATION:Confirm nasogastric tube placement. COMPARISON: October 27 at 12:17 AM TECHNIQUE: Abdomen radiograph one view. FINDINGS / IMPRESSION:Interval placement of a nasogastric tube that terminates in the gastric fundus. Air- filled mildly dilated small bowel in the left hemiabdomen again demonstrated. Little gas in the colon. Signed: Tyson Vo MDReport Verified Date/Time: 10/27/2018 10:09:00 Reading Location: [facility] Radiology Reading Room W/PLT COUNT & AUTO [id number] 09:33:00* Test Item Value Reference Range Comments WHITE BLOOD CELL COUNT (BEAKER) (test gzlj=378) 14.6 K/ L 3.5-10.5 RED BLOOD CELL COUNT (BEAKER) (test obpr=553) 4.45 M/ L 3.93-5.22 HEMOGLOBIN (BEAKER) (test pwxq=232) 12.5 GM/DL 11.2-15.7 HEMATOCRIT (BEAKER) (test lbam=701) 37.9 % 34.1-44.9 MEAN CORPUSCULAR VOLUME (BEAKER) (test pass=377) 85.2 fL 79.4-94.8 MEAN CORPUSCULAR HEMOGLOBIN (BEAKER) (test azyj=870) 28.1 pg 25.6-32.2 MEAN CORPUSCULAR HEMOGLOBIN CONC (BEAKER) (test sntv=832) 33.0 GM/DL 32.2-35.5 RED CELL DISTRIBUTION WIDTH (BEAKER) (test ciwn=224) 15.0 % 11.7-14.4 PLATELET COUNT (BEAKER) (test ywmo=498) 901 K/CU MM 150-450 MEAN PLATELET VOLUME (BEAKER) (test owjz=957) 8.1 fL 9.4-12.3 NUCLEATED RED BLOOD CELLS (BEAKER) (test vwbw=586) 0 /100 WBC 0-0 NEUTROPHILS RELATIVE PERCENT (BEAKER) (test ndxh=627) 90 % LYMPHOCYTES RELATIVE PERCENT (BEAKER) (test ftdl=725) 6 % MONOCYTES RELATIVE PERCENT (BEAKER) (test nrjw=800) 4 % EOSINOPHILS RELATIVE PERCENT (BEAKER) (test fkwr=015) 0 % BASOPHILS RELATIVE PERCENT (BEAKER) (test tkcj=695) 0 % NEUTROPHILS ABSOLUTE COUNT (BEAKER) (test nalc=704) 13.20 K/ L 1.56-6.13 LYMPHOCYTES ABSOLUTE COUNT (BEAKER) (test nwqu=177) 0.82 K/ L 1.18-3.74 MONOCYTES ABSOLUTE COUNT (BEAKER) (test mtyv=992) 0.54 K/ L 0.24-0.36 EOSINOPHILS ABSOLUTE COUNT (BEAKER) (test ypix=267) 0.00 K/ L 0.04-0.36 BASOPHILS ABSOLUTE COUNT (BEAKER) (test yxvp=200) 0.02 K/ L 0.01-0.08 IMMATURE GRANULOCYTES-RELATIVE PERCENT (BEAKER) (test afgd=0791) 0 % 0-1 BLOOD [id number] 02:00:00* Test Item Value Reference Range Comments CULTURE (BEAKER) (test qfaa=7966) No growth in 5 days BLOOD [id number] 02:00:00* Test Item Value Reference Range Comments CULTURE (BEAKER) (test ubja=8333) No growth in 5 days RAD, ABDOMEN/KUB, 1 VIEW [id number] 00:38:00UPRIGHT for obstruction in pt w likely mass and no bms, concrn for malignancUPSyReason for exam:->UPRIGHT for obstruction in pt w likely mass and no bms, concrn for malignancUPSyShould this be performed at the bedside?->YesFINAL REPORT RAD, ABDOMEN/KUB, 1 VIEW AP CLINICAL HISTORY: UPRIGHT for obstruction in pt w likely mass and no bms, concrn for malignancUPSy TECHNIQUE: RAD, ABDOMEN/KUB, 1 VIEW AP COMPARISON: CT abdomen and pelvis October 21, 2018. IMPRESSION: There are are mildly dilated small bowel loops within the abdomen with air-fluid levels suggestive of ileus or partial small bowel obstruction. No pneumatosis or free air. Unremarkable osseous structures. Pelvic mass noted on comparison imaging is ill-defined on the current exam. Signed: Samuel Cerda MDReport Verified Date/Time: 10/27/2018 00:38:20 , BIOPSY, [id number] 17:13:00Biopsy to be done from Reason for exam:->biopsy of lymph node vs carcinomatosis Reason for exam:->biopsy from retroperitoneal lymph node and carcinomatosis,not from the massFINAL REPORT PROCEDURE: CT-guided core biopsy of left retroperitoneal lymph node. Dose modulation, iterative reconstruction, and/or weight-based adjustment of the mA/kV was utilized to reduce the radiation dose to as low as reasonably achievable. INDICATION: 68-year-old woman with pelvic mass and retroperitoneal lymphadenopathy. COMPARISON: Outside abdomen and pelvis CT 10/21/2018. SEDATION: Intravenous moderate sedation was administered by radiology nursing and monitored under the direction of the undersigned radiologist. The patient's vital signs were monitored throughout the procedure and recorded in the patient's medical record by radiology nursing. Total intraservice time of sedation was 30 minutes. MEDICATIONS: 0.5 mg Versed, 25 mcg fentanyl DESCRIPTION: After obtaining informed written consent, the patient was brought to the CT scanner and placed in the prone position. Preliminary CT scan of the abdomen revealed left retroperitoneal lymphadenopathy, the most accessible was a 1.4 cm lymph node inferior to the level of the left renal vasculature. This left retroperitoneal lymph node was targeted for biopsy. The overlying skin was prepped and draped in the usual, sterile fashion and local 2% lidocaine anesthesia was administered. Under CT guidance, a 17-gauge introducer needle was inserted into the left back and placed into the left retroperitoneal lymph node. The inner stylette was removed, and an 18-gauge core biopsy needle was passed through the introducer and into the lymph node. Five core biopsy samples of the left retroperitoneal lymph node were obtained. The needles were removed. Postprocedure CT scan revealed no evidence for hematoma or other complication. IMPRESSION:Uncomplicated CT-guided core biopsy of left retroperitoneal lymph node. Signed: Choco Ngo MDReport Verified Date/Time: 10/25/2018 17:13:29 Reading Location: [facility] B1 C013Y CT Body Reading Room W/PLT COUNT & AUTO [id number] 05:33:00* Test Item Value Reference Range Comments WHITE BLOOD CELL COUNT (BEAKER) (test sxav=836) 16.1 K/ L 3.5-10.5 RED BLOOD CELL COUNT (BEAKER) (test utjw=732) 4.29 M/ L 3.93-5.22 HEMOGLOBIN (BEAKER) (test oixx=935) 11.9 GM/DL 11.2-15.7 HEMATOCRIT (BEAKER) (test gjlt=317) 37.7 % 34.1-44.9 MEAN CORPUSCULAR VOLUME (BEAKER) (test luhe=493) 87.9 fL 79.4-94.8 MEAN CORPUSCULAR HEMOGLOBIN (BEAKER) (test bqpk=592) 27.7 pg 25.6-32.2 MEAN CORPUSCULAR HEMOGLOBIN CONC (BEAKER) (test quiy=702) 31.6 GM/DL 32.2-35.5 RED CELL DISTRIBUTION WIDTH (BEAKER) (test mkfh=446) 14.6 % 11.7-14.4 PLATELET COUNT (BEAKER) (test teys=150) 754 K/CU MM 150-450 MEAN PLATELET VOLUME (BEAKER) (test zfho=299) 8.1 fL 9.4-12.3 NUCLEATED RED BLOOD CELLS (BEAKER) (test nmxe=672) 0 /100 WBC 0-0 NEUTROPHILS RELATIVE PERCENT (BEAKER) (test ntuk=811) 83 % LYMPHOCYTES RELATIVE PERCENT (BEAKER) (test oksz=109) 10 % MONOCYTES RELATIVE PERCENT (BEAKER) (test kaqv=329) 6 % EOSINOPHILS RELATIVE PERCENT (BEAKER) (test pqkg=733) 1 % BASOPHILS RELATIVE PERCENT (BEAKER) (test zlsr=235) 0 % NEUTROPHILS ABSOLUTE COUNT (BEAKER) (test nalr=007) 13.33 K/ L 1.56-6.13 LYMPHOCYTES ABSOLUTE COUNT (BEAKER) (test phzo=002) 1.63 K/ L 1.18-3.74 MONOCYTES ABSOLUTE COUNT (BEAKER) (test rdfw=067) 0.91 K/ L 0.24-0.36 EOSINOPHILS ABSOLUTE COUNT (BEAKER) (test rdze=455) 0.13 K/ L 0.04-0.36 BASOPHILS ABSOLUTE COUNT (BEAKER) (test jeli=930) 0.07 K/ L 0.01-0.08 IMMATURE GRANULOCYTES-RELATIVE PERCENT (BEAKER) (test wpww=4418) 0 % 0-1 [id number] 05:24:00* Test Item Value Reference Range Comments PROTIME (BEAKER) (test aqvo=896) 14.3 seconds 11.9-14.2 INR (BEAKER) (test qnhf=771) 1.2 <=5.9 PARTIAL THROMBOPLASTIN TIME (BEAKER) (test kufo=369) 31.6 seconds 22.5-36.0 Effective 10/20/2018: PT Reference Range ChangeNew: 11.9-14.2 Previous: 11.7-14. 7RECOMMENDED COUMADIN/WARFARIN INR THERAPY RANGESSTANDARD DOSE: 2.0-3.0 Include s: PROPHYLAXIS for venous thrombosis, systemic embolization; TREATMENT for venou s thrombosis and/or pulmonary embolus.HIGH RISK: Target INR is 2.5-3.5 for patie nts wiht mechanical heart valves.CBC W/PLT COUNT & AUTO [id number] 05:34:00* Test Item Value Reference Range Comments WHITE BLOOD CELL COUNT (BEAKER) (test xvem=286) 16.3 K/ L 3.5-10.5 RED BLOOD CELL COUNT (BEAKER) (test baiv=653) 4.06 M/ L 3.93-5.22 HEMOGLOBIN (BEAKER) (test rtew=970) 11.5 GM/DL 11.2-15.7 HEMATOCRIT (BEAKER) (test kzdz=830) 35.6 % 34.1-44.9 MEAN CORPUSCULAR VOLUME (BEAKER) (test vwcc=459) 87.7 fL 79.4-94.8 MEAN CORPUSCULAR HEMOGLOBIN (BEAKER) (test ucvy=528) 28.3 pg 25.6-32.2 MEAN CORPUSCULAR HEMOGLOBIN CONC (BEAKER) (test hsup=850) 32.3 GM/DL 32.2-35.5 RED CELL DISTRIBUTION WIDTH (BEAKER) (test rjfp=549) 14.6 % 11.7-14.4 PLATELET COUNT (BEAKER) (test cvtf=414) 795 K/CU MM 150-450 MEAN PLATELET VOLUME (BEAKER) (test gthc=286) 8.0 fL 9.4-12.3 NUCLEATED RED BLOOD CELLS (BEAKER) (test ohrs=454) 0 /100 WBC 0-0 NEUTROPHILS RELATIVE PERCENT (BEAKER) (test cleq=404) 84 % LYMPHOCYTES RELATIVE PERCENT (BEAKER) (test nevi=778) 9 % MONOCYTES RELATIVE PERCENT (BEAKER) (test zoje=301) 6 % EOSINOPHILS RELATIVE PERCENT (BEAKER) (test ukxj=548) 1 % BASOPHILS RELATIVE PERCENT (BEAKER) (test oscv=847) 0 % NEUTROPHILS ABSOLUTE COUNT (BEAKER) (test jdiq=228) 13.66 K/ L 1.56-6.13 LYMPHOCYTES ABSOLUTE COUNT (BEAKER) (test mucp=238) 1.44 K/ L 1.18-3.74 MONOCYTES ABSOLUTE COUNT (BEAKER) (test xzsa=959) 0.91 K/ L 0.24-0.36 EOSINOPHILS ABSOLUTE COUNT (BEAKER) (test gujh=354) 0.08 K/ L 0.04-0.36 BASOPHILS ABSOLUTE COUNT (BEAKER) (test aejo=621) 0.06 K/ L 0.01-0.08 IMMATURE GRANULOCYTES-RELATIVE PERCENT (BEAKER) (test ktoe=7461) 1 % 0-1 BASIC METABOLIC [id number] 05:28:00* Test Item Value Reference Range Comments SODIUM (BEAKER) (test wbrv=699) 134 meq/L 136-145 POTASSIUM (BEAKER) (test ddie=157) 3.7 meq/L 3.5-5.1 CHLORIDE (BEAKER) (test okak=077) 102 meq/L 98-107 CO2 (BEAKER) (test uwlq=758) 25 meq/L 22-29 BLOOD UREA NITROGEN (BEAKER) (test fxre=675) 4 mg/dL 7-21 CREATININE (BEAKER) (test eemv=145) 0.64 mg/dL 0.57-1.25 GLUCOSE RANDOM (BEAKER) (test ggda=745) 101 mg/dL 70-105 CALCIUM (BEAKER) (test xfrh=837) 8.6 mg/dL 8.4-10.2 EGFR (BEAKER) (test wkud=9967) 92 mL/min/1.73 sq m ESTIMATED GFR IS NOT ACCURATE CREATININE CLEARANCE IN PREDICTING GLOMERULAR FILTRATION RATE. ESTIMATED GFR IS NOT APPLICABLE FOR DIALYSIS PATIENTS. CT, CHEST, WITH [id number] 11:53:00FINAL REPORT TECHNIQUE: CT scan of the chest WITH intravenous contrast. Dose modulation, iterative reconstruction, and/or weight-based adjustment of the mA/kV was utilized to reduce the radiation dose to as low as reasonably achievable. INDICATION: Neoplasm: chest, metastatic, suspected. COMPARISON: Outside hospital CT of the abdomen and pelvis from 10/21/2018. FINDINGS: LINES/TUBES: None. LUNGS AND AIRWAYS: A left upper lobe pulmonary nodule measures 0.4 cm on axial image 10. PLEURA: The pleural spaces are clear. HEART AND MEDIASTINUM: The visualized thyroid gland is normal. No significant mediastinal, hilar, or axillary lymphadenopathy. The heart and pericardium are within normal limits. SOFT TISSUES AND BONES: Moderate degenerative disc changes of the thoracic sp ine. No suspicious lytic or blastic skeletal lesions. UPPER ABDOMEN: Trace perih epatic ascites. Multiple dilated loops of partially visualized small bowel. IMP RESSION: 1.No definite metastatic disease in the chest. 2.A left upper lobe pulm onary nodule measures 0.4 cm. Signed: Jamil Griffin MDReport Verified Date/Time: 0 10/23/2018 11:53:26 Reading Location: [facility] C013Y CT Body Reading Room Elec tronically signed by: JAMIL GRIFFIN MD on 10/23/2018 11:53 AM CBC W/PLT COUNT & AUTO [id number] 05:31:00* Test Item Value Reference Range Comments WHITE BLOOD CELL COUNT (BEAKER) (test thpf=878) 18.0 K/ L 3.5-10.5 RED BLOOD CELL COUNT (BEAKER) (test uioh=434) 3.98 M/ L 3.93-5.22 HEMOGLOBIN (BEAKER) (test ukyz=276) 11.1 GM/DL 11.2-15.7 HEMATOCRIT (BEAKER) (test sqlh=848) 35.1 % 34.1-44.9 MEAN CORPUSCULAR VOLUME (BEAKER) (test lils=172) 88.2 fL 79.4-94.8 MEAN CORPUSCULAR HEMOGLOBIN (BEAKER) (test yxfg=714) 27.9 pg 25.6-32.2 MEAN CORPUSCULAR HEMOGLOBIN CONC (BEAKER) (test nrwn=919) 31.6 GM/DL 32.2-35.5 RED CELL DISTRIBUTION WIDTH (BEAKER) (test evsr=607) 14.5 % 11.7-14.4 PLATELET COUNT (BEAKER) (test hevb=274) 722 K/CU MM 150-450 MEAN PLATELET VOLUME (BEAKER) (test bfby=442) 8.1 fL 9.4-12.3 NUCLEATED RED BLOOD CELLS (BEAKER) (test gqjx=326) 0 /100 WBC 0-0 NEUTROPHILS RELATIVE PERCENT (BEAKER) (test cgwz=911) 88 % LYMPHOCYTES RELATIVE PERCENT (BEAKER) (test rbsi=321) 6 % MONOCYTES RELATIVE PERCENT (BEAKER) (test ueov=788) 6 % EOSINOPHILS RELATIVE PERCENT (BEAKER) (test gnzb=172) 0 % BASOPHILS RELATIVE PERCENT (BEAKER) (test posh=475) 0 % NEUTROPHILS ABSOLUTE COUNT (BEAKER) (test gccs=098) 15.76 K/ L 1.56-6.13 LYMPHOCYTES ABSOLUTE COUNT (BEAKER) (test cwmc=677) 1.02 K/ L 1.18-3.74 MONOCYTES ABSOLUTE COUNT (BEAKER) (test rzzw=708) 1.00 K/ L 0.24-0.36 EOSINOPHILS ABSOLUTE COUNT (BEAKER) (test slia=323) 0.06 K/ L 0.04-0.36 BASOPHILS ABSOLUTE COUNT (BEAKER) (test stmy=435) 0.04 K/ L 0.01-0.08 IMMATURE GRANULOCYTES-RELATIVE PERCENT (BEAKER) (test betx=8139) 1 % 0-1 BASIC METABOLIC [id number] 05:30:00* Test Item Value Reference Range Comments SODIUM (BEAKER) (test qhyc=557) 134 meq/L 136-145 POTASSIUM (BEAKER) (test ctkq=230) 4.2 meq/L 3.5-5.1 Specimen slightly hemolyzed CHLORIDE (BEAKER) (test nnkk=646) 106 meq/L 98-107 CO2 (BEAKER) (test opxn=522) 20 meq/L 22-29 BLOOD UREA NITROGEN (BEAKER) (test aris=838) 5 mg/dL 7-21 CREATININE (BEAKER) (test dvhp=272) 0.61 mg/dL 0.57-1.25 Specimen slightly hemolyzed GLUCOSE RANDOM (BEAKER) (test rpcx=958) 107 mg/dL 70-105 CALCIUM (BEAKER) (test xqqx=193) 8.2 mg/dL 8.4-10.2 EGFR (BEAKER) (test mzue=7029) 98 mL/min/1.73 sq m ESTIMATED GFR IS NOT ACCURATE CREATININE CLEARANCE IN PREDICTING GLOMERULAR FILTRATION RATE. ESTIMATED GFR IS NOT APPLICABLE FOR DIALYSIS PATIENTS. CARCINOEMBRYONIC ANTIGEN (CEA)2018-10-22 15:02:00* Test Item Value Reference Range Comments CARCINOEMBRYONIC ANTIGEN (BEAKER) (test gltb=262) 1.0 ng/mL 0.0-5.0 BASIC METABOLIC [id number] 07:32:00* Test Item Value Reference Range Comments SODIUM (BEAKER) (test lktd=220) 136 meq/L 136-145 POTASSIUM (BEAKER) (test uizg=592) 4.2 meq/L 3.5-5.1 CHLORIDE (BEAKER) (test guxn=651) 103 meq/L 98-107 CO2 (BEAKER) (test agga=453) 23 meq/L 22-29 BLOOD UREA NITROGEN (BEAKER) (test kmlu=037) 11 mg/dL 7-21 CREATININE (BEAKER) (test uryz=765) 0.67 mg/dL 0.57-1.25 GLUCOSE RANDOM (BEAKER) (test mlsx=406) 88 mg/dL 70-105 CALCIUM (BEAKER) (test dnkh=227) 8.5 mg/dL 8.4-10.2 EGFR (BEAKER) (test ebho=4671) 88 mL/min/1.73 sq m ESTIMATED GFR IS NOT ACCURATE CREATININE CLEARANCE IN PREDICTING GLOMERULAR FILTRATION RATE. ESTIMATED GFR IS NOT APPLICABLE FOR DIALYSIS PATIENTS. URINALYSIS W/ REFLEX URINE [id number] 03:27:00* Test Item Value Reference Range Comments COLOR (BEAKER) (test fybj=322) Yellow CLARITY (BEAKER) (test rkha=435) Clear SPECIFIC GRAVITY UA (BEAKER) (test rlot=040) 1.028 1.001-1.035 PH UA (BEAKER) (test uskp=726) 6.5 5.0-8.0 PROTEIN UA (BEAKER) (test zdbo=357) 10 mg/dL Negative GLUCOSE UA (BEAKER) (test isov=438) Negative Negative KETONES UA (BEAKER) (test glfn=668) 20 mg/dL Negative BILIRUBIN UA (BEAKER) (test fgfe=907) Negative Negative BLOOD UA (BEAKER) (test rolv=607) Negative Negative NITRITE UA (BEAKER) (test xkup=862) Negative Negative LEUKOCYTE ESTERASE UA (BEAKER) (test tnbj=138) Negative Negative UROBILINOGEN UA (BEAKER) (test xzmq=515) 0.2 mg/dL 0.2-1.0 RBC UA (BEAKER) (test cboj=471) < /HPF WBC UA (BEAKER) (test rdhy=033) 1 /HPF MUCUS (BEAKER) (test mzez=6189) Rare SQUAMOUS EPITHELIAL (BEAKER) (test inbz=591) 2 /HPF SOURCE(BEAKER) (test fjsp=2872) RAD, CHEST, 1 VIEW, NON [id number] 22:23:00Reason for exam:->for sobShould this be performed at the bedside?->YesFINAL REPORT EXAMINATION: AP PORTABLE CHEST RADIOGRAPH CLINICAL INDICATION: Shortness of breath IMPRESSION: No comparison studies are available. No evidence of a discrete pneumonia, pulmonary edema or pleural effusion. Heart size is normal for this projection. Mediastinal contours are sharp and smooth. No evidence of an acute osseous abnormality or pneumothorax. Signed: [facility] Verified Date/Time: 10/21/2018 22:23:43 Reading Location: [address] Reading Room REHENSIVE METABOLIC [id number] 22:22:00* Test Item Value Reference Range Comments TOTAL PROTEIN (BEAKER) (test yvct=224) 7.2 gm/dL 6.0-8.3 ALBUMIN (BEAKER) (test hfmj=9263) 3.4 g/dL 3.5-5.0 ALKALINE PHOSPHATASE (BEAKER) (test nhdg=134) 99 U/L 40-150 BILIRUBIN TOTAL (BEAKER) (test rytv=328) 0.4 mg/dL 0.2-1.2 SODIUM (BEAKER) (test gdld=160) 134 meq/L 136-145 POTASSIUM (BEAKER) (test glhr=176) 4.0 meq/L 3.5-5.1 CHLORIDE (BEAKER) (test lanf=436) 101 meq/L 98-107 CO2 (BEAKER) (test lhcl=233) 23 meq/L 22-29 BLOOD UREA NITROGEN (BEAKER) (test zrki=025) 13 mg/dL 7-21 CREATININE (BEAKER) (test potv=102) 0.73 mg/dL 0.57-1.25 GLUCOSE RANDOM (BEAKER) (test yoza=940) 99 mg/dL 70-105 CALCIUM (BEAKER) (test ltcr=433) 8.9 mg/dL 8.4-10.2 AST (SGOT) (BEAKER) (test ddsi=806) 23 U/L 5-34 ALT (SGPT) (BEAKER) (test zarq=523) 16 U/L 6-55 EGFR (BEAKER) (test ipsu=3726) 79 mL/min/1.73 sq m ESTIMATED GFR IS NOT ACCURATE CREATININE CLEARANCE IN PREDICTING GLOMERULAR FILTRATION RATE. ESTIMATED GFR IS NOT APPLICABLE FOR DIALYSIS PATIENTS. CBC W/PLT COUNT & AUTO [id number] 22:04:00* Test Item Value Reference Range Comments WHITE BLOOD CELL COUNT (BEAKER) (test bhbs=845) 19.2 K/ L 3.5-10.5 RED BLOOD CELL COUNT (BEAKER) (test kcxr=481) 3.96 M/ L 3.93-5.22 HEMOGLOBIN (BEAKER) (test fbyw=044) 11.3 GM/DL 11.2-15.7 HEMATOCRIT (BEAKER) (test whnz=367) 34.2 % 34.1-44.9 MEAN CORPUSCULAR VOLUME (BEAKER) (test bcen=840) 86.4 fL 79.4-94.8 MEAN CORPUSCULAR HEMOGLOBIN (BEAKER) (test iios=001) 28.5 pg 25.6-32.2 MEAN CORPUSCULAR HEMOGLOBIN CONC (BEAKER) (test vohb=817) 33.0 GM/DL 32.2-35.5 RED CELL DISTRIBUTION WIDTH (BEAKER) (test gnrn=677) 14.3 % 11.7-14.4 PLATELET COUNT (BEAKER) (test vdef=051) 711 K/CU MM 150-450 MEAN PLATELET VOLUME (BEAKER) (test ubma=337) 8.0 fL 9.4-12.3 NUCLEATED RED BLOOD CELLS (BEAKER) (test lvlc=664) 0 /100 WBC 0-0 NEUTROPHILS RELATIVE PERCENT (BEAKER) (test vqce=867) 88 % LYMPHOCYTES RELATIVE PERCENT (BEAKER) (test rvvg=292) 5 % MONOCYTES RELATIVE PERCENT (BEAKER) (test pdmt=568) 6 % EOSINOPHILS RELATIVE PERCENT (BEAKER) (test nvju=982) 0 % BASOPHILS RELATIVE PERCENT (BEAKER) (test olrk=034) 0 % NEUTROPHILS ABSOLUTE COUNT (BEAKER) (test vsbo=663) 16.98 K/ L 1.56-6.13 LYMPHOCYTES ABSOLUTE COUNT (BEAKER) (test gzdi=679) 0.96 K/ L 1.18-3.74 MONOCYTES ABSOLUTE COUNT (BEAKER) (test myiy=615) 1.11 K/ L 0.24-0.36 EOSINOPHILS ABSOLUTE COUNT (BEAKER) (test sbrl=298) 0.04 K/ L 0.04-0.36 BASOPHILS ABSOLUTE COUNT (BEAKER) (test uvpl=443) 0.03 K/ L 0.01-0.08 IMMATURE GRANULOCYTES-RELATIVE PERCENT (BEAKER) (test tchc=5241) 1 % 0-1 CT ABD/PEL WITH [id number] 11:45:00 [place] [address] Patient Name: MAYA GARCIA MR #: [id number] : 1950 Age/Sex: 68/F Req #: [id number] Adm Physician: Ordered by: MELA LLAMAS MD Report #: [id number] Location: [facility] Room/Bed: Procedure: [id number] HOPD/CT ABD/PEL WITH CONTRAST-HOPD Exam Date: 10/21/18 Exam Time: 1117 REPORT STATUS: S igned EXAM: CT Abdomen and Pelvis WITH contrast INDICATION: Abdominal Pain COMPARISON: None. TECHNIQUE: Abdomen and pelvis were scanned [employer] ng a multidetector helical scanner from the lung base to the pubic symphysis a fter administration of IV contrast. Coronal and sagittal reformations were obt ained. Routine protocol was performed. Scan was performed when during portal v enous phase. IV CONTRAST: 100 cc of Isovue 370 ORAL CONTRAST: Water COMPLICATIONS: None RADIATION DOSE: Total DLP : 595.2 mGy*cm Dose modulation, iterative reconstruction, and/or weight ba sed adjustment of the mA/kV was utilized to reduce the radiation dose to as lo w as reasonably achievable. FINDINGS: LINES and TUBES: None. LOWE R THORAX: Unremarkable HEPATOBILIARY: No evidence of focal lesion. No bili adonis ductal dilation. GALLBLADDER: No radio-opaque stones or sludge. No wa ll thickening. SPLEEN: No splenomegaly. PANCREAS: No focal masses or ductal dilatation. ADRENALS: No adrenal nodules KIDNEYS/URETERS: Th ere is mild right hydronephrosis and hydroureter with distal ureteral extrins ic compression from the pelvic mass. Kidneys enhance symmetrically. No evidenc e of solid mass or stone. Subcentimeter left lower pole renal hypodensity, lik rebekah representing a cyst. GI TRACT: There is dilatation of small bowel loops , measuring up to 3.5 cm. There is extrinsic compression of the ileal loops in the pelvis. There is stool and air within the colon which is nondistended. Th e sigmoid colon is decompressed and extrinsically narrowed by the pelvic mass. PELVIC ORGANS/BLADDER: There is a large heterogeneous pelvic mass, which i s ill-defined, but measuring up to approximately 15.7 x 12.7 x 8.9 cm. The mas s is indistinguishable from the uterus or adnexa. The mass is centered within the midline and left pelvis. Along the left aspect of the mass, there is a lar ge fluid component with multiple foci of punctate air. The fluid component m easures up to 11.3 x 6.5 cm. There is small volume surrounding free fluid. Ext rinsic compression of the bladder which is displaced anteriorly and partially decompressed. LYMPH NODES: Retroperitoneal lymphadenopathy, for example a l eft periaortic lymph node, measuring up to 1.9 x 1.7 cm (series 2, image 40) a nd an aortocaval lymph node, measuring up to 1.3 x 0.9 cm (image 36). Left com mon iliac artery lymph node, measuring up to 0.8 cm short axis on image 46. Ri ght pericardiac lymph nodes are prominent, measuring up to 0.8 cm. Prominent m esenteric lymph nodes, measuring up to 0.8 cm on image 35. VESSELS: There are scattered atherosclerotic calcifications in the aorta and branch vessels. PERITONEUM / RETROPERITONEUM: No free air or fluid. BONES AND SOFT T ISSUES: No acute osseous abnormality. No suspicious lytic or blastic lesions. Grade 1 anterolisthesis of L5 on S1. CONCLUSION: Large heterogeneous pelv ic mass, consistent with malignancy with retroperitoneal and mesenteric lympha denopathy, suspicious for metastasis. Small volume ascites. Differential inclu itzel endometrial and ovarian malignancies. Large fluid component within the mas s suspicious for necrosis. The foci of air within the mass could represent fis avila to the adjacent sigmoid colon. Prominent right pericardial lymph nodes, w hich may be metastatic or reactive. Recommend gynecologic/oncologic consultat ion. Dedicated PET/CT for staging is suggested. Partial small bowel obstr uction and mild right hydronephrosis secondary to extrinsic mass effect from t he pelvic mass. Signed by: Dr. Romel Gaviria MD on 10/21/2018 12:43 PM Dictated By: ROMEL GAVIRIA MD [id number] Transcribed By: BROCK on 10/21/18 1243 COPY TO: MELA LLAMAS MD
[2019-08-01 01:00] LABS: BASOPHILS % 0.4 % (0.0-1.0); EOSINOPHILS # (AUTO) 0.1 (0.0-0.4); EOSINOPHILS % 0.4 % (0.0-6.0); HEMATOCRIT 31.9 % (34.2-44.1); HEMOGLOBIN 9.9 g/dL (12.0-16.0); LYMPHOCYTES # (AUTO) 0.2 (1.0-3.2); MEAN CORPUSCULAR HEMOGLOBIN 29.2 pg (28-32); MEAN CORPUSCULAR VOLUME 94.1 fL (81-99); MONOCYTES # (AUTO) 0.5 (0.2-0.8); MONOCYTES % 4.5 % (4.4-11.3); NEUTROPHILS # (AUTO) 9.8 (2.1-6.9); NEUTROPHILS % 86.8 % (38.7-80.0); PLATELET COUNT 135 x10e3/uL (140-360); RED BLOOD COUNT 3.39 x10e6/uL (3.6-5.1); RED CELL DISTRIBUTION WIDTH 16.4 % (11.7-14.4)
[2019-08-01 01:02] LABS: INR 1.12; PROTHROMBIN TIME 15.1 seconds (11.9-14.5)
[2019-08-01 01:14] LABS: ALANINE AMINOTRANSFERASE 11 IU/L (0-55); ALBUMIN 2.5 g/dL (3.5-5.0); ALBUMIN/GLOBULIN RATIO 0.7 (0.8-2.0); ALKALINE PHOSPHATASE 92 IU/L (40-150); ANION GAP 15.9 mmol/L (8-16); BLOOD UREA NITROGEN 17 mg/dL (7-26); BUN/CREATININE RATIO 18 (6-25); CALCIUM 8.9 mg/dL (8.4-10.2); CARBON DIOXIDE 24 mmol/L (22-29); CHLORIDE 95 mmol/L (98-107); CREATINE KINASE 25 IU/L (29-168); CREATININE, SERUM 0.92 mg/dL (0.57-1.11); EST GLOMERULAR FILTRATION RATE > 60 ML/MIN (60-); GLUCOSE 104 mg/dL (74-118); POTASSIUM 3.9 mmol/L (3.5-5.1); SODIUM 131 mmol/L (136-145)
[2019-08-01] MEDS ORDERED: IOPAMIDOL 370 MG/ML 200 ML INFUS..BTL INJ ONE (01:44)
[2019-08-01] MEDS ORDERED: SODIUM CHLORIDE 0.9% 100 ML ONE (01:44)
[2019-08-01 01:51] LABS: AMYLASE 16 U/L (25-125); LIPASE 31 U/L (8-78)
[2019-08-01] MEDS ORDERED: ONDANSETRON HCL INJ 2MG/ML 2ML 2 MG/ML VIAL IV STA (03:15)
--- NOTE | 2019-08-01 03:15 | NUR ---
DR. RUIZ AT BEDSIDE DISCUSSING RESULTS OF DIAGNOSTIC SCANS. PT HAS NO FURTHER QUESTIONS AT THIS TIME.
[2019-08-01 03:24] VITALS: BP 125/61
--- NOTE | 2019-08-01 03:58 | Diagnostic Imaging Report ---
EXAM: CTA of the Thoracic Aorta WITH and WITHOUT Contrast INDICATION: Chest pain COMPARISON: Abdominal pelvic CT 10/21/2018. TECHNIQUE: Multi-detector CT technology was employed. The chest was scanned without contrast and then after IV administration of contrast. CTA imaging of the chest was performed after the administration of IV contrast. IV CONTRAST: 150 mL Isovue 370 ORAL CONTRAST: None COMPLICATIONS: None RADIATION DOSE: Total DLP: 290 mGy*cm Estimated effective dose: (DLP x 0.015 x size factor) mSv CTDIvol has been reviewed. It is below the limits set by the Radiation Protocol Committee (RPC). For optimization of anatomic evaluation, multiplanar reconstruction, maximum intensity projections, and advanced 3-D off-line postprocessing were performed on a dedicated stand-alone workstation. FINDINGS: Potential study limitations: None. LINES/ TUBES: Right chest wall port with right IJ central venous catheter component, tip in the low/mid SVC.. VASCULAR WITH ADVANCED 3-D OFF-LINE POSTPROCESSING: Aortic valve morphology contains minimal calcifications. The thoracic aorta is normal in course, caliber, and contour. There is no acute aortic pathology, such as dissection, intramural hematoma, or contained rupture. Aortic plaques: Mild calcific plaque. LUNGS AND AIRWAYS: Lungs are clear. Airways are patent. PLEURA: The pleural spaces are clear.. HEART AND MEDIASTINUM: The thyroid gland is normal. No mediastinal, hilar or axillary lymphadenopathy. The main pulmonary artery is normal in size. Triple vessel coronary artery calcific atherosclerosis. LIMITED ABDOMEN: A 7.8 x 5.9 cm infiltrative heterogeneous partially visualized mass in the left upper quadrant involves the left hepatic lobe and lesser curvature of stomach and invades the left lower chest wall. Multiple additional soft tissue masses in the upper abdomen, along the right hepatic capsule and in the gastrosplenic space. BONES: Degenerative changes in the spine.. IMPRESSION: Normal thoracic aorta. There is no acute aortic pathology. A 7.8 cm partially proximally invasive mass in the left upper quadrant and invades the stomach, liver, and left lower anterior chest wall. Multiple additional soft tissue masses beneath the diaphragms in the left upper quadrant. Compatible with widespread peritoneal malignancy. Mild coronary artery calcific atherosclerosis, and mild aortic valve calcifications. Signed by: Bruce Black DO on 08/01/2019 3:56 AM
--- NOTE | 2019-08-01 04:09 | Diagnostic Imaging Report ---
EXAMINATION: CHEST SINGLE (PORTABLE) INDICATION: Chest pain COMPARISON: None FINDINGS: TUBES and LINES: Right chest wall chemotherapy port with right IJ central venous catheter, tip in the mid SVC. LUNGS: Normal lung volumes. Lungs are clear. No consolidations. PLEURA: No pleural effusion or pneumothorax. HEART AND MEDIASTINUM: The cardiomediastinal silhouette is unremarkable. BONES AND SOFT TISSUES: No acute osseous lesion. Soft tissues are unremarkable. Degenerative changes in the spine and shoulders. UPPER ABDOMEN: No free air under the diaphragm. IMPRESSION: No acute thoracic radiographic abnormality. Signed by: Bruce Black DO on 08/01/2019 4:07 AM
[2019-08-01 09:12] LABS: LYMPHOCYTES % (MANUAL) 3 % (19-48); MONOCYTES % (MANUAL) 2 % (3.4-9.0); NEUTROPHILS % (MANUAL) 94 % (40-74)
== END 2019-08-01 04:13 | disposition home or self-care (01) ==
LOC: ER 00:23
DX: R09.1 Pleurisy (principal); R19.7 Diarrhea, unspecified; E03.9 Hypothyroidism, unspecified; Z85.43 Personal history of malignant neoplasm of ovary; Z85.42 Personal history of malignant neoplasm of other parts of uterus
CPT/HCPCS: 36415; 71045; 71275; 80053; 82150; 82550; 82553; 83690; 83880; 84484; 85025; 85610; 85730; 93005; 99284; J2405; J7050; Q9967